=== PATIENT | male | born 1955 | race Caucasian/White ===

== ENCOUNTER → 2017-07-09 07:58 | Outpatient (CLI) | payer BC, SELFPAY ==
[2017-07-09 08:54] LABS: AST(SGOT) 23 U/L (15-37); Alanine Aminotransfer ALT/SGPT 46 U/L (16-61); Albumin, Serum 3.5 g/dL (3.2-5.0); Alkaline Phosphatase 91 U/L (45-117); Bilirubin, Direct 0.15 mg/dL (0.00-0.30); Cholesterol 146 mg/dL (200); Globulin 3.2 g/dL (2.2-4.2); High Density Lipoprotein 38 mg/dL; Protein, Total 6.7 g/dL (6.4-8.2); Triglycerides 137 mg/dL; Very Low Density Lipoprotein 27 mg/dL (5-40)
== END ==
PROVIDERS: Family Provider Family Medicine; PCP Family Medicine; Visit Provider Nurse Practitioner Family
DX: E78.5 Hyperlipidemia, unspecified (principal)
CPT/HCPCS: 36415; 80061; 80076

== ENCOUNTER → 2019-02-10 07:29 | Outpatient (CLI) | payer BC, SELFPAY ==
[2019-02-10 08:43] LABS: AST(SGOT) 19 U/L (15-37); Alanine Aminotransfer ALT/SGPT 36 U/L (16-61); Albumin, Serum 3.6 g/dL (3.2-5.0); Alkaline Phosphatase 81 U/L (45-117); Bilirubin, Direct 0.09 mg/dL (0.00-0.30); Cholesterol 126 mg/dL (200); Globulin 3.2 g/dL (2.2-4.2); High Density Lipoprotein 38 mg/dL; Protein, Total 6.8 g/dL (6.4-8.2); Triglycerides 103 mg/dL; Very Low Density Lipoprotein 21 mg/dL (5-40)
== END ==
PROVIDERS: Family Provider Family Medicine; PCP Family Medicine; Referring Provider Nurse Practitioner Family; Visit Provider Nurse Practitioner Family
DX: E78.5 Hyperlipidemia, unspecified (principal); Z79.899 Other long term (current) drug therapy
CPT/HCPCS: 36415; 80061; 80076

== ENCOUNTER → 2019-12-26 07:43 | Outpatient (CLI) | payer MEDICARE, OTHER, SELFPAY ==
[2019-02-14 08:32] VITALS: BMI 41.0
--- NOTE | 2019-12-26 07:44 | ECHOCS_ITS ---
Reason For Study: CMP Procedure This was a 2D Doppler, Color Flow transthoracic echocardiogram. Contrast injection was performed. Exam performed in department. Left Ventricle Mildly dilated left ventricle. Moderate global left ventricular systolic dysfunction. The estimated ejection fraction is 30 %. Septal motion consistent with IVCD. Unable to assess diastolic dysfunction. Right Ventricle Normal RV size. Normal systolic function. Atria The left atrium is mildly enlarged. Normal right atrium. No doppler evidence for ASD. Bubble contrast study negative for right to left interatrial shunt. Mitral Valve There is no mitral annular calcification. Normal mitral valve. Trivial mitral valve insufficiency. Tricuspid Valve Normal tricuspid valve. Trivial tricuspid valve insufficiency. Right ventricular systolic pressure estimated to be 31 mmHg. Aortic Valve Trisinus/trileaflet aortic valve. Normal aortic valve. Trivial aortic valve insufficiency. Pulmonic Valve The pulmonic valve is not well visualized. Trivial pulmonic valve insufficiency. Great Vessels Normal sized aortic root. Pericardium/Pleural No pericardial effusion. Medication 22 gauge I.V. with prn adaptor inserted into right arm. Diluted definity 2ml given slow IV push to enhance endocardial definition. Performed a rapid injection of agitated mix of 9 cc saline and 1cc air to assess for atrial septal defect. MMode/2D Measurements & Calculations LVIDd: 5.3 cm IVSd: 1.1 cm Ao root diam: 3.7 cm LVIDs: 4.5 cm LVPWd: 1.3 cm LA dimension: 4.0 cm RVDd: 3.7 cm FS: 14.4 % LAV(MOD-bp): 63.8 ml LA A4 area: 21.2 cm2 RA A4 area: 13.7 cm2 LAV(MOD-bp) Indexed: 30.6 ml/m2 LAV(MOD-sp2): 59.2 ml LAV(MOD-sp4): 62.1 ml Doppler Measurements & Calculations Lat Peak E' Satnam: 6.8 cm/sec Med Peak E' [place]: 6.8 cm/sec Ao V2 max: 139.7 cm/sec Ao max P.8 mmHg AI max satnam: 388.0 cm/sec LV V1 max: 88.9 cm/sec PA V2 max: 108.8 cm/sec AI max P.2 mmHg LV V1 max P.2 mmHg AI dec slope: 237.3 cm/sec2 AI P1/2t: 478.9 msec TR max satnam: 263.6 cm/sec TR max P.8 mmHg Interpretation Summary Contrast injection was performed. Mildly dilated left ventricle. Moderate global left ventricular systolic dysfunction. The estimated ejection fraction is 30 %. Septal motion consistent with IVCD. The left atrium is mildly enlarged. Trivial mitral valve insufficiency. Trivial tricuspid valve insufficiency. Trivial aortic valve insufficiency. Trivial pulmonic valve insufficiency. Right ventricular systolic pressure estimated to be 31 mmHg. Unable to assess diastolic dysfunction. Ordering Physician: Simba Harvey Referring Physician: MD Adin Lemus Performed By: Rajendra Valero RCS
[2019-12-26 10:09] LABS: AST(SGOT) 17 U/L (15-37); Alanine Aminotransfer ALT/SGPT 36 U/L (16-61); Albumin, Serum 3.6 g/dL (3.2-5.0); Alkaline Phosphatase 75 U/L (45-117); Bilirubin, Direct 0.17 mg/dL (0.00-0.30); Cholesterol 129 mg/dL (200); Globulin 3.3 g/dL (2.2-4.2); High Density Lipoprotein 36 mg/dL; Protein, Total 6.9 g/dL (6.4-8.2); Triglycerides 129 mg/dL; Very Low Density Lipoprotein 26 mg/dL (5-40)
== END ==
PROVIDERS: Nurse Practitioner Family; PCP Family Medicine; Referring Provider Internal Medicine Cardiovascular Disease; Visit Provider Internal Medicine Cardiovascular Disease
DX: I42.0 Dilated cardiomyopathy (principal); I25.10 Atherosclerotic heart disease of native coronary artery without angina pectoris; I10 Essential (primary) hypertension; E78.00 Pure hypercholesterolemia, unspecified
CPT/HCPCS: 36415; 80061; 80076; 93306; Q9957; A4216; C8929

== ENCOUNTER → 2020-01-24 06:01 | Outpatient (CLI) | payer MEDICARE, OTHER, SELFPAY ==
[2020-01-05 12:59] VITALS: BMI 41.3
--- NOTE | 2020-01-24 08:56 | STRESSREP_ITS ---
Stress Test Report Date: 01-24-2020 Procedure: Pharmacologic stress nuclear imaging study Indications: Shortness of breath/dyspnea on exertion; CAD; cardiomyopathy; abnormal ECG-left bundle branch block Consent: Per the patient Procedure: The patient underwent pharmacologic (Regadenoson) evaluation with a peak heart rate of 93 beats per minute (60%predicted maximal heart rate) and a peak blood pressure of 142/90 mmHg. The baseline ECG demonstrated sinus rhythm; left bundle branch block. The peak pharmacologic ECG demonstrated no obvious ECG changes. There were no cardiac dysrhythmias pretest, during pharmacologic infusion, or recovery. There was no complaint of chest discomfort during pharmacologic infusion or recovery. The examination was discontinued secondary to completion of protocol. Impression: 1. Pharmacologic (Regadenoson) evaluation 2. Peak pharmacologic ECG with continued left bundle branch block with no obvious ECG changes. 3. There were no cardiac dysrhythmias pretest, during pharmacologic infusion, or recovery. 4. Nuclear images pending Myocardial perfusion imaging study: Technique: The patient was injected with 14.9 millicuries of technetium 99m Cardiolite and subsequently rest SPECT Cardiolite nuclear imaging was obtained in the horizontal long, vertical long, and short axis views. The patient underwent pharmacologic (Regadenoson) evaluation with a peak heart rate of 93 beats per minute (60% percent predicted maximal heart rate) and a peak blood pressure of 142/90 mmHg. The patient was injected with 44.6 millicuries of technetium 99m Cardiolite and subsequently stress SPECT Cardiolite nuclear imaging was obtained in the horizontal long, vertical long, and short axis views. A gated Cardiolite study at peak stress was obtained. Interpretation: Rest and stress SPECT Cardiolite nuclear imaging status post realignment, normalization, and attenuation correction demonstrate the appearance of dimi nished myocardial perfusion/tracer uptake in portions of the distal anterior, anteroapical, distal anteroseptal, septal apical, distal lateral/lateral apical, distal inferior/inferior apical, which appears to be more prominent in portions of the distal anterior and distal anteroseptal segments status post stress. There is diminished end systolic thickening and brightening in the aforementioned areas. The gated Cardiolite study demonstrates diminished myocardial thickening and inward wall motion. The reported LVEF is 43%. Impression: 1. Rest and stress SPECT current nuclear imaging demonstrate myocardial perfusion changes concerning for an area of previous myocardial injury/infarction involving portions of the distal anterior, anteroapical, distal anteroseptal, septal apical, distal lateral apical/lateral apical, and distal inferior/inferoapical, with post-rest changes concerning for an area of associated tutu-infarct related myocardial ischemia in portions of the distal anterior and distal anterior septal segments. 2. The gated Cardiolite study reports an LVEF of 43%. This note was generated with Piik[employer] software. It may contain incorrect words, spelling, and punctuation that were not noted in checking the note before signing.
== END ==
PROVIDERS: PCP Family Medicine; Referring Provider Internal Medicine Cardiovascular Disease; Visit Provider Internal Medicine Cardiovascular Disease
DX: R06.00 Dyspnea, unspecified (principal); I25.10 Atherosclerotic heart disease of native coronary artery without angina pectoris; I42.0 Dilated cardiomyopathy; I44.7 Left bundle-branch block, unspecified; I10 Essential (primary) hypertension; E78.00 Pure hypercholesterolemia, unspecified
CPT/HCPCS: 78452; 93017; A9500; A4216; J2785

== ENCOUNTER 2020-02-15 06:47 | Day surgery (SDC) | payer MEDICARE, OTHER, SELFPAY ==
[2020-01-05 12:59] VITALS: BMI 41.3
[2020-02-07 09:00] VITALS: BMI 41.0
--- NOTE | 2020-02-07 09:40 | RAD_ITS ---
STUDY: X-RAY CHEST REASON FOR EXAM: Male, 64 years old. SOB HX OF CHEST PAINS WHEN EXERTING HIMSELF RECENTLY. TECHNIQUE: The lateral views COMPARISON: 11/21/2016 FINDINGS: The lungs are clear and expanded. There is no demonstrated pleural abnormality. Normal size heart. Normal mediastinum and serena. Normal visualized pulmonary arteries. Normal visualized aortic arch and descending thoracic aorta. Normal visualized thoracic spine. Normal visualized ribs, clavicles, and shoulders. There is no demonstrated abnormality of the visualized soft tissue structures of the upper abdomen. RAD/Chest PA and Lateral IMPRESSION: Normal x-ray examination of the chest. Electronically Signed: Rafal Martinez DO at 11:31 EDT Tel [phone], Service support ,
[2020-02-07 10:01] LABS: Hematocrit 43.2 % (40-54); Hemoglobin 14.6 g/dL (13.0-16.5); Mean Corp Hgb Conc 33.8 g/dL (32-36); Mean Corpuscular Hgb 30.4 pg (27.0-32.0); Mean Platelet Vol. 8.8 fl (6.2-12.0); Platelet Count 198 K/mm3 (150-450); RBC Distribution Width CV 12.9 % (11.6-14.6); RBC Distribution Width SD 42.5 fl (35.1-43.9); White Blood Count 6.5 K/mm3 (4.4-11.0)
[2020-02-07 10:16] LABS: Prothrombin Time (Protime)PT. 12.5 SECONDS (11.7-14.9)
[2020-02-07 10:17] LABS: Partial Thromboplast Time 25.1 Seconds (24.1-36.2)
[2020-02-07 10:33] LABS: Anion Gap 3 (5-15); BUN 13 mg/dL (7-18); BUN/Creat Ratio 13.2 RATIO (10-20); Calcium,Total 8.8 mg/dL (8.5-10.1); Chloride 111 mmol/L (98-107); Creatinine, Serum 0.98 mg/dL (0.70-1.30); EST Glomerular Filtration Rate 81 mL/min (>60); Est Glom Filt Rate - Afr Amer 98 mL/min (>60); Glucose 103 mg/dL (74-106); Potassium 4.2 mmol/L (3.5-5.1); Sodium Level 140 mmol/L (136-145)
[2020-02-14 07:52] VITALS: BMI 41.3
--- NOTE | 2020-02-14 09:37 | PCM.HP.BLA ---
<Tabatha Almanza - Last Filed: 02/14/20 09:37> History and Physical Date of Admission: 02/15/20 JOSH WILKERSON, is a 64-year-old white male who presents here today for a diagnostic heart cath. He has a hx of tcoronary artery disease, cardiomyopathy, hyperlipidemia and left bundle branch block. At his last OV there was concern over SOB. His significant other is with him and she states she notices that he is more short of breath and dyspneic sometimes during conversation as well as activity. He feels that his breathing is reasonable during his activity. He has not had ongoing orthopnea or PND or peripheral pitting edema. There is been no ongoing symptoms of classic angina pectoris in the form of chest discomfort. He has not had near syncope or syncope. He did undergo evaluation recently with a transthoracic echocardiogram. The results are noted below. He also had his lipid labs performed recently. His total cholesterol was 129 with an LDL of 67 and an HDL of 36. His triglycerides were 129. He underwent a stress test which was abnormal. Stress test demonstrated concerns of evidence of stress-induced cardiomyopathy as well as diminished LV systolic function-which may be compatible with the patient's history of an underlying cardiomyopathy. Because of this he is undergoing a diagnostic heart cath. Allergies No Known Allergies Allergy (Verified 01/05/20 13:02) Medications Aspirin [Aspirin, Baby] 81 mg PO DAILY@0800 #30 tab.chew 11/22/16 [Rx Confirmed 01/05/20] rosuvastatin 10 mg tablet 10 mg PO DAILY 02/14/19 [History Confirmed 01/05/20] amlodipine 2.5 mg tablet 2.5 mg PO DAILY #90 tab 06/20/19 [Rx Confirmed 01/05/20] carvedilol 6.25 mg tablet 6.25 mg PO BID #60 tab 01/05/20 [Rx Confirmed 01/05/20] [facility] Medical History Pure hypercholesterolemia (Chronic) Dilated cardiomyopathy (Chronic) Essential hypertension (Chronic) Left bundle branch block (Chronic) Atherosclerotic heart disease of [place] coronary artery without angina pectoris (Chronic) Surgical History History of right arm surgery (Resolved) History of tonsillectomy (Resolved) Family History Mother Heart disease Pacemaker Cardiac defibrillator in place Social History (Updated 01/05/20 @ 13:[address] Simba Harvey MD) Smoking Status: Never smoker alcohol intake: current alcohol intake frequency: holidays/special occasions only caffeine: Yes Type: coffee Number of servings: 3 ROS Const Const: Negative for fatigue, weakness, frequent falls, excessive sweating, weight gain or weight loss Eyes Eyes: Negative for transient loss of vision, blurry vision or change in vision ENT ENT: Negative for dizziness or balance problems Cardio Chest Pain: No Palpitations: No Edema: None Muscle aches with walking: None Resp Respiratory: Positive for SOB with activity (increased) and SOB at rest GI GI: Negative vomiting or vomiting blood/hematemesis : Negative for hematuria Musc Musc: Negative for muscle aches/ myalgia, muscle weakness, joint pain or balance problems Skin Skin: Negative non-healing lesions or rash Neuro Neuro: Negative for dizziness, lightheadedness, orthostatic symptoms, frequent falls, weakness or blurry vision Main Hematologic/Lymphatic: Negative for easy bleeding Endo Endo: Negative for fatigue or excessive sweating Psych Psych: Negative for anxiety or depression Allergy Allergy/Immunology: Negative for hives, Negative for rash Cardiology Exam Const Appearance: cooperative, healthy appearing, comfortable, no acute distress, well developed and well groomed Nutritional Appearance: overweight Orientation: alert, awake and oriented x3 Head Head: normal to inspection, normocephalic and atraumatic Ears: hearing grossly normal bilaterally Nose: external nose normal Face and Sinus: face symmetric Mouth: moist mucous membranes Teeth and gingiva: fair dentition Eyes Eyelids: eyelids normal Conjunctivae: conjunctivae normal Pupils: PERRL EOM: EOM intact bilaterally Neck Neck: normal visual inspection, full ROM, no lymphadenopathy and no JVD Carotids: normal carotid upstroke; negative bruit Neck Mass: Negative Neck mass Chest Chest inspection: normal inspection of the chest and symmetric chest movement; negative normal respiratory effort Auscultation: Bilateral: Clear to Auscultation Cardio Palpation: normal PMI Rate: regular rate Rhythm: regular rhythm Heart sounds: S1 normal and S2 normal; negative rub, gallop or murmur GI GI: normal to inspection, soft and bowel sounds present; negative tender Neuro General: alert, awake, oriented x3 and moves all extremities Skin Skin: no rashes or lesions noted Extremities Pulses: Normal: Right Posterior Tibial Pulse, Left Posterior Tibial Pulse, Right Radial Pulse, Left Radial Pulse Lower Extremity Edema: None: Bilateral Psych Psychological: normal affect Assessment & Plan 1. Atherosclerosis of [place] coronary artery of [place] heart without angina pectoris I25.10 Plan He does have a history of CAD documented by diagnostic cardiac catheterization in 2017. At that time from a coronary artery disease standpoint it was reported as mild to moderate with no angiographically significant CAD. He was treated medically with risk factor evaluation and care. Based upon questions of shortness of breath and dyspnea as well as his echocardiogram suggesting his LV systolic function being diminished, he underwent a stress test which was abnormal. He will undergo a diagnostic heart cath today. F/u will be based on findings. 2. Dilated cardiomyopathy I42.0 Plan He has initiated medical therapy with carvedilol. He will increase the dose to 6.25 mg twice daily. He will continue to increase the dose as tolerated as well as consider addition of other agents such as JAYME inhibitors, ARB's, or Entresto. 3. Left bundle branch block I44.7 Plan He does have a history of a left bundle branch block. This may go along with a non-CAD related cardiomyopathy. He will continue evaluation care as noted above. 4. Pure hypercholesterolemia E78.00 Plan His lipid labs were reviewed. He will continue medical therapy and follow-up. 5. Essential hypertension I10 Plan His blood pressure appears to be reasonably well controlled at the moment. He will continue medical management follow-up 6. Dyspnea on exertion R06.00 Plan The concern is whether his dyspnea on exertion is related to his cardiovascular disease process versus a noncardiac process. Procedure Criteria Procedure Type: Elective COVID Risk Discussion: The surgeon/proceduralist and patient have discussed in detail the risk of exposure to and/or potential harm posed by the COVID-19 virus with having a surgery/procedure at this time versus the risk of delaying the surgery/procedure. It is not possible to know either the risk of delaying the surgery or procedure or chance of getting an infection with perfect accuracy, but a joint decision was made between the patient and the surgeon/proceduralist to proceed at this time with the scheduled surgery/procedure as indicated on the consent form. <Simba Harvey - Last Filed: 02/15/20 07:38> History and Physical Addendum: Echocardiogram: 12-26-2019 Interpretation Summary Contrast injection was performed. Mildly dilated left ventricle. Moderate global left ventricular systolic dysfunction. The estimated ejection fraction is 30 %. Septal motion consistent with IVCD. The left atrium is mildly enlarged. Trivial mitral valve insufficiency. Trivial tricuspid valve insufficiency. Trivial aortic valve insufficiency. Trivial pulmonic valve insufficiency. Right ventricular systolic pressure estimated to be 31 mmHg. Unable to assess diastolic dysfunction. Stress Test Report Date: 01-24-2020 Procedure: Pharmacologic stress nuclear imaging study Indications: Shortness of breath/dyspnea on exertion; CAD; cardiomyopathy; abnormal ECG-left bundle branch block Consent: Per the patient Procedure: The patient underwent pharmacologic (Regadenoson) evaluation with a peak heart rate of 93 beats per minute (60%predicted maximal heart rate) and a peak blood pressure of 142/90 mmHg. The baseline ECG demonstrated sinus rhythm; left bundle branch block. The peak pharmacologic ECG demonstrated no obvious ECG changes. There were no cardiac dysrhythmias pretest, during pharmacologic infusion, or recovery. There was no complaint of chest discomfort during pharmacologic infusion or recovery. The examination was discontinued secondary to completion of protocol. Impression: 1. Pharmacologic (Regadenoson) evaluation 2. Peak pharmacologic ECG with continued left bundle branch block with no obvious ECG changes. 3. There were no cardiac dysrhythmias pretest, during pharmacologic infusion, or recovery. 4. Nuclear images pending Myocardial perfusion imaging study: Technique: The patient was injected with 14.9 millicuries of technetium 99m Cardiolite and subsequently rest SPECT Cardiolite nuclear imaging was obtained in the horizontal long, vertical long, and short axis views. The patient underwent pharmacologic (Regadenoson) evaluation with a peak heart rate of 93 beats per minute (60% percent predicted maximal heart rate) and a peak blood pressure of 142/90 mmHg. The patient was injected with 44.6 millicuries of technetium 99m Cardiolite and subsequently stress SPECT Cardiolite nuclear imaging was obtained in the horizontal long, vertical long, and short axis views. A gated Cardiolite study at peak stress was obtained. Interpretation: Rest and stress SPECT Cardiolite nuclear imaging status post realignment, normalization, and attenuation correction demonstrate the appearance of diminished myocardial perfusion/tracer uptake in portions of the distal anterior, anteroapical, distal anteroseptal, septal apical, distal lateral/lateral apical, distal inferior/inferior apical, which appears to be more prominent in portions of the distal anterior and distal anteroseptal segments status post stress. There is diminished end systolic thickening and brightening in the aforementioned areas. The gated Cardiolite study demonstrates diminished myocardial thickening and inward wall motion. The reported LVEF is 43%. Impression: 1. Rest and stress SPECT current nuclear imaging demonstrate myocardial perfusion changes concerning for an area of previous myocardial injury/infarction involving portions of the distal anterior, anteroapical, distal anteroseptal, septal apical, distal lateral apical/lateral apical, and distal inferior/inferoapical, with post-rest changes concerning for an area of associated tutu-infarct related myocardial ischemia in portions of the distal anterior and distal anterior septal segments. 2. The gated Cardiolite study reports an LVEF of 43%. I have re-examined the patient. There are no clinical changes since date of exam.
--- NOTE | 2020-02-15 09:22 | CL.D_ITS ---
Patient Name: JOSH WILKERSON Study Date: 02/15/2020 Performing: Simba Harvey MD Ht: 66.14 inches 168 cm : 1955 Wt: 255.74 lbs 116 kg Age: 64 Gender: male BSA: 2.22 PROCEDURE(S) PERFORMED [id number]/LV CLINICAL PROFILE AND INDICATIONS Indications: Suspected CAD Heart Failure: None Stress/Imaging Date: 01/24/2020 Angina Classification Anginal Classification w/in 2 Weeks: Anginal Equivalent Dyspnea CONCLUSIONS Elevated Left Ventricular End Diastolic Pressure Global LV systolic dysfunction- Moderate LVEF: by LV gram 30 % [place] Multivessel CAD RECOMMENDATIONS Medical therapy Refer for EP evaluation for BiV ICD PRECIPITATOR DESCRIPTION OF PROCEDURE The patient arrived to the procedure lab. The risks and benefits of the procedure as well as a full d escription of our services here and current unavailability of surgical backup were fully explained to the patient and/or their significant other prior to the catheterization. The Timeout was completed, verifying the correct patient and procedure. The patient's procedural site was prepped and draped in the usual fashion. Local anesthetic was given subcutaneously to right radial region with Lidocaine 2% . Using a modified Seldinger technique, arterial access was obtained via the right radial artery, a 6 Fr sheath was inserted. Left Coronary Artery selective angiography was performed in multiple views u sing a 5 Fr. 4.0 [place] catheter. Right Coronary Artery selective angiography was then performed in mu ltiple views using a 5 Fr. 4.0 [place] catheter. Left Ventriculography was performed in COLE projection using a 5 Fr. Pig[place] catheter. LV to AO pullback pressures were then recorded.The arterial sheath was pulled and a TR Band was applied for hemostasis 10cc air inserted CORONARY ANGIOGRAPHY DOMINANCE: Left Dominant LEFT HEART ASSESSMENT Left Ventricular Ejection Fraction: by LV Gram 30 % Global Hypokinesis - Moderate Elevated Left Ventricular End Diastolic Pressure LVEDP: 30 mmHg LEFT MAIN: Angiographically normal LEFT ANTERIOR DESCENDING ARTERY: PROX LAD: eccentric: 10 - 25 % Stenosis, Mild luminal irregularities DIAGONAL 1: Proximal - Mild luminal irregularities DIAGONAL 2: Proximal - Mild luminal irregularities CIRCUMFLEX ARTERY: Mild luminal irregularities RIGHT CORONARY ARTERY: Mild luminal irregularities diffuse: eccentric: 10 - 25 % Stenosis MID RCA: aneurysmal segment AORTIC ROOT: Angiographically normal COMPLICATIONS No Complications PROCEDURE MEDICATIONS Fentanyl 50 mcg IV Versed 1 mg IV Oxygen: 2 L/min via nasal cannula SUMMARY OF HEMODYNAMIC DATA Time AIR REST ECG 07:10:04 AO 121/72 (90) SA 08:20:24 LV 122/15, 30 08:36:45 LV 122/14, 30 08:36:51 LV 124/14, 30 08:37:49 LVp 127/11, 22 08:37:55 AOp 127/75 (98) 08:38:00 Signed By Simba Harvey MD On 02/15/2020 09:21:39 Simba Harvey MD
== END 2020-02-15 10:32 | disposition home or self-care (01) ==
LOC: CLSP 06:48
PROVIDERS: PCP Family Medicine; Referring Provider Internal Medicine Cardiovascular Disease; Visit Provider Internal Medicine Cardiovascular Disease
DX: I25.10 Atherosclerotic heart disease of native coronary artery without angina pectoris (principal); I44.7 Left bundle-branch block, unspecified; I42.0 Dilated cardiomyopathy; I10 Essential (primary) hypertension; E78.5 Hyperlipidemia, unspecified; R06.02 Shortness of breath; Z79.82 Long term (current) use of aspirin; Z79.899 Other long term (current) drug therapy
CPT/HCPCS: 36415; 71046; 80048; 85027; 85610; 85730; 93458; 99152; 99153; J7040; Q9967; C1769; C1894

== ENCOUNTER → 2020-04-10 09:46 | Outpatient (CLI) | payer MEDICARE, OTHER, SELFPAY ==
[2020-04-10 09:08] VITALS: BMI 41.3
[2020-04-10 10:49] LABS: Anion Gap 5 (5-15); BUN 15 mg/dL (7-18); BUN/Creat Ratio 15.1 RATIO (10-20); Chloride 107 mmol/L (98-107); EST Glomerular Filtration Rate 80 mL/min (>60); Est Glom Filt Rate - Afr Amer 97 mL/min (>60); Glucose 93 mg/dL (74-106); Potassium 4.4 mmol/L (3.5-5.1); Sodium Level 136 mmol/L (136-145)
== END ==
PROVIDERS: PCP Family Medicine; Visit Provider Nurse Practitioner Family
DX: I10 Essential (primary) hypertension (principal); E78.00 Pure hypercholesterolemia, unspecified; I42.0 Dilated cardiomyopathy; I44.7 Left bundle-branch block, unspecified; I25.10 Atherosclerotic heart disease of native coronary artery without angina pectoris
CPT/HCPCS: 36415; 80048

== ENCOUNTER → 2020-05-18 22:25 | Outpatient (CLI) | payer MEDICARE, OTHER, SELFPAY ==
[2020-04-10 09:08] VITALS: BMI 41.3
== END ==
PROVIDERS: PCP Family Medicine; Referring Provider Nurse Practitioner Family; Visit Provider Nurse Practitioner Family
DX: G47.10 Hypersomnia, unspecified (principal); I25.10 Atherosclerotic heart disease of native coronary artery without angina pectoris; I44.7 Left bundle-branch block, unspecified
CPT/HCPCS: 95810

== ENCOUNTER → 2020-06-15 08:15 | Outpatient (CLI) | payer MEDICARE, OTHER, SELFPAY ==
[2020-06-04 13:24] VITALS: BMI 41.9
[2020-06-15 09:30] LABS: AST(SGOT) 20 U/L (15-37); Alanine Aminotransfer ALT/SGPT 31 U/L (16-61); Albumin, Serum 3.7 g/dL (3.2-5.0); Alkaline Phosphatase 75 U/L (45-117); Bilirubin, Direct 0.07 mg/dL (0.00-0.30); Cholesterol 156 mg/dL (200); Globulin 3.4 g/dL (2.2-4.2); High Density Lipoprotein 40 mg/dL; Protein, Total 7.1 g/dL (6.4-8.2); Triglycerides 134 mg/dL; Very Low Density Lipoprotein 27 mg/dL (5-40)
== END ==
PROVIDERS: PCP Family Medicine; Referring Provider Nurse Practitioner Family; Visit Provider Nurse Practitioner Family
DX: E78.00 Pure hypercholesterolemia, unspecified (principal)
CPT/HCPCS: 36415; 80061; 80076

== ENCOUNTER → 2020-06-15 20:15 | Outpatient (CLI) | payer MEDICARE, OTHER, SELFPAY ==
[2020-06-04 13:24] VITALS: BMI 41.9
[2020-06-15 08:34] VITALS: BMI 41.5
== END ==
PROVIDERS: PCP Family Medicine; Referring Provider Nurse Practitioner Acute Care; Visit Provider Nurse Practitioner Acute Care
DX: G47.33 Obstructive sleep apnea (adult) (pediatric) (principal); E78.00 Pure hypercholesterolemia, unspecified; I10 Essential (primary) hypertension; I42.0 Dilated cardiomyopathy; I44.7 Left bundle-branch block, unspecified; I25.10 Atherosclerotic heart disease of native coronary artery without angina pectoris
CPT/HCPCS: 36415; 80061; 80076; 95811

== ENCOUNTER → 2020-07-05 09:00 | Outpatient (CLI) | payer MEDICARE, OTHER, SELFPAY ==
[2020-06-15 08:34] VITALS: BMI 41.5
== END ==
PROVIDERS: PCP Family Medicine; Visit Provider Nurse Practitioner Acute Care
DX: Z46.89 Encounter for fitting and adjustment of other specified devices (principal)

== ENCOUNTER 2020-08-11 23:27 | Emergency (ER) | payer MEDICARE, OTHER, SELFPAY ==
[2020-06-15 08:34] VITALS: BMI 41.5
[2020-08-11 23:28] VITALS: BP 158/90; PULSE 107; RESP 16; TEMP 36.7; O2SAT 97; BMI 40.3
--- NOTE | 2020-08-11 23:30 | EKG12_ITS ---
Test Reason : CP Blood Pressure : / mmHG Vent. Rate : 104 BPM Atrial Rate : 104 BPM P-R Int : 144 ms QRS Dur : 164 ms QT Int : 400 ms P-R-T Axes : 000 -42 099 degrees QTc Int : 526 ms Sinus tachycardia Left axis deviation Left bundle branch block Abnormal ECG Confirmed by DANIELLE OCHOA, RONI ([id number]), newspaper managing editor HEIDE TEJEDA ([id number]) on 08/15/2020 10:56:15 AM Referred By: SAMANTHA Confirmed By:RONI SANTOS MD
--- NOTE | 2020-08-11 23:42 | ED.VISSUMM ---
- ER Visit Summary Date of Service: 08/11/20 Chief Complaint: Nausea, vomiting and diarrhea with left lateral rib cage pain only when lying on his right side History of Present Illness: The patient is a 64 M hypertension, high cholesterol cardiomyopathy and left bundle branch block. Patient had a prior cardiac catheterization, no prior cardiac stents or bypass. States in the last 24 hours has had nausea, vomiting diarrhea. Mild chills. He is also had left lateral rib cage pain only when lying on his right side. Is not exertional. Currently he is not having any chest pain nor is he short of breath. He denies any fever. Physical Examination: Older male no acute distress vital signs stable initial blood pressure 150/103. Afebrile. Pulse ox 97% on room air no signs hypoxia. He does not look septic or toxic. He does not look dehydrated. He is in no distress. HEENT exam unremarkable. Neck nontender no lymphadenopathy. Lungs clear to auscultation bilaterally. Heart regular rhythm rate about 100 no murmur. Abdomen is soft and nontender normal bowel sounds no peritoneal signs. Chest wall is nontender. Specifically his left rib cage is nontender. There is no ecchymosis or bruising. No subcu air or crepitance. Patient is moving all 4 extremities. Equal symmetrical radial pulses. Calves are nontender without edema or cords. Back nontender. Neurologically is awake alert with no focal motor deficits. Skin unremarkable. Test Results: EKG shows sinus tachycardia rate of 104 with a left bundle branch block which he has had documented before in the past. No acute signs of [place] or ischemia. Portable 1 view chest x-ray interpreted by myself shows no acute abnormality. Normal cardiac silhouette mediastinum. No infiltrate. No obvious acute bony abnormalities. No pneumothorax nor any infiltrate. Chronic changes. CBC normal white count of 10 hemoglobin 15. Chemistries unremarkable normal creatinine and gap. Troponin normal. D-dimer normal. Multiple repeat exams patient is doing well. He was having some nausea which would go along with his viral type of symptoms and was treated with IV Zofran. Emergency Department Course and Treatment: Patient with nausea vomiting and diarrhea which may be a viral syndrome. He also has atypical left-sided rib cage pain only when laying on the right. Its not reproducible. This does not sound cardiac. He has been hospitalized about 5 to 6 weeks ago. Clinically does not appear to be a DVT or PE but I will do a D-dimer due to the recent hospitalization and very atypical chest pain that he is currently not having nor is it reproducible. Treatment Plan: Plenty of fluids and rest. Zofran as needed for nausea. Follow-up if not improving or return if feeling worse. Disposition: Discharge Impression: Acute nausea, vomiting and diarrhea secondary to viral syndrome. Atypical left rib cage chest pain History of left bundle branch block This note was generated with [employer] dictation software. It may contain incorrect words, spelling, and punctuation that were not noted in review of the chart prior to signing ED Disposition - Plan for ED Patient: Referrals: Adin Lemus MD [Primary Care Provider] -
[2020-08-11] MEDS: Aspirin 81 MG TAB.CHEW 324 MG PO (23:47)
[2020-08-11 23:57] LABS: Absolute Lymphocyte Count 0.68 X10^3/uL (0.83-4.51); Absolute Neutrophil Count 9.4 X10^3/uL (2.0-7.7); Basophil# 0.04 X10^3/uL; Basophil% 0.4 % (0-1); Eosinophil# 0.08 X10^3/uL; Eosinophils% 0.7 % (0-5); Hematocrit 45.1 % (40-54); Hemoglobin 15.1 g/dL (13.0-16.5); Lymphocyte # 0.68 X10^3/ul (4.0); Lymphocyte % 6.3 % (19-41); Mean Corp Hgb Conc 33.5 g/dL (32-36); Mean Corpuscular Hgb 30.7 pg (27.0-32.0); Mean Corpuscular Volume 91.7 fL (80-94); Mean Platelet Vol. 8.9 fl (6.2-12.0); Monocyte# 0.53 X10^3/uL; Monocyte% 4.9 % (0-10); NRBC Flagged by Analyzer 0 % (0-5); Neutrophil # 9.42 X10^3/uL (2.7-7.7); Neutrophil % 87.3 % (47-70); Platelet Count 209 K/mm3 (150-450); RBC Distribution Width SD 44.1 fl (35.1-43.9); Red Blood Count 4.92 M/mm3 (4.6-6.2); White Blood Count 10.8 K/mm3 (4.4-11.0)
--- NOTE | 2020-08-12 | RAD_ITS ---
STUDY: X-RAY CHEST REASON FOR EXAM: Male, 64 years old. chest pain TECHNIQUE: Single AP portable view of the chest. COMPARISON: 02/07/2020. FINDINGS: There are no confluent pulmonary infiltrates. There is no demonstrated pleural abnormality. Normal size heart. Normal mediastinum and serena. Normal visualized aortic arch and descending thoracic aorta. There are no demonstrated acute fractures or destructive bone lesions. There is no demonstrated abnormality of the visualized soft tissue structures of the upper abdomen. RAD/Chest 1 View (Portable) IMPRESSION: Normal x-ray examination of the chest. Electronically Signed: Michael Carpio MD at 0:32 EDT , Service support ,
[2020-08-12 00:11] LABS: Anion Gap 7 (5-15); BUN 17 mg/dL (7-18); BUN/Creat Ratio 15.7 RATIO (10-20); Chloride 110 mmol/L (98-107); Creatinine, Serum 1.08 mg/dL (0.70-1.30); EST Glomerular Filtration Rate 73 mL/min (>60); Est Glom Filt Rate - Afr Amer 88 mL/min (>60); Estimated Creatinine Clearance 61.54 ml/min; Glucose 134 mg/dL (74-106); Potassium 4.2 mmol/L (3.5-5.1); Sodium Level 141 mmol/L (136-145)
[2020-08-12] MEDS: Ondansetron 4 MG/2 ML Vial IV (00:22)
[2020-08-12 00:28] LABS: D-Dimer Quantitative (DVT/PE) 0.36 FEU/ug/m (0.27-0.49)
--- NOTE | 2020-08-12 00:34 | ED.DEP ---
ED Disposition - Plan for ED Patient: Disposition: Home or Assisted Living Instructions: ED Chest Pain, Uncertain Cause, ED Viral Syndrome (Adult) Prescriptions: Ondansetron [Zofran Odt] 4 mg PO Q8H PRN PRN #7 tablet PRN Reason: Nausea Prescription Printed Referrals: Adin Lemus MD [Primary Care Provider] - 3-5 Days if not improving Additional Instructions: Plenty of fluids and rest. Tylenol for any pain. Zofran as needed for nausea. Your labs, EKG and chest x-ray were all unremarkable tonight. This may all be from a viral syndrome.
[2020-08-12 00:48] VITALS: PULSE 94; RESP 18; O2SAT 95
[2020-08-12 00:58] VITALS: BP 154/95; BP 158/90; PULSE 83; PULSE 94; RESP 16; RESP 18; TEMP 36.7; O2SAT 95
== END 2020-08-12 01:02 | disposition home or self-care (01) ==
PROVIDERS: Emergency Provider Emergency Medicine; PCP Family Medicine
DX: B34.9 Viral infection, unspecified (principal); R11.2 Nausea with vomiting, unspecified; R19.7 Diarrhea, unspecified; R07.81 Pleurodynia; I25.10 Atherosclerotic heart disease of native coronary artery without angina pectoris; I10 Essential (primary) hypertension; I42.9 Cardiomyopathy, unspecified; E78.00 Pure hypercholesterolemia, unspecified; Z79.82 Long term (current) use of aspirin; Z79.899 Other long term (current) drug therapy
CPT/HCPCS: 71045; 80048; 84484; 85025; 85379; 93005; 96374; 99282; A4216; J2405

== ENCOUNTER → 2020-09-14 15:20 | Outpatient (CLI) | payer MEDICARE, OTHER, SELFPAY | PROVIDERS: PCP Family Medicine | DX: Z01.818 Encounter for other preprocedural examination (principal); Z20.822 Contact with and (suspected) exposure to COVID-19 | CPT/HCPCS: 87635; C9803; U0002 ==

== ENCOUNTER → 2021-09-16 | Outpatient (CLI) | payer MEDICARE, OTHER, SELFPAY ==
--- NOTE | 2021-09-16 08:47 | ECHOD_ITS ---
Reason For Study: CARDIOMYOPATHY Procedure This was a 2D Doppler, Color Flow transthoracic echocardiogram. The study was technically difficult. Exam performed in department. Left Ventricle Normal LV size. Left ventricular systolic function is lower limits of normal. The estimated ejection fraction is 50 %. Septal motion consistent with IVCD. No evidence for diastolic dysfunction. No regional wall motion abnormalities noted. Right Ventricle Normal RV size. ICD or pacer leads identified within the right ventricle. Normal systolic function. Atria Normal left atrium. Normal right atrium. ICD or pacer leads identified within the right atrium. No doppler evidence for ASD. Mitral Valve There is no mitral annular calcification. Normal mitral valve. Trivial mitral valve insufficiency. Tricuspid Valve Normal tricuspid valve. Trivial tricuspid valve insufficiency. Right ventricular systolic pressure estimated to be 34 mmHg. Aortic Valve Trisinus/trileaflet aortic valve. Normal aortic valve. Trivial aortic valve insufficiency. Pulmonic Valve The pulmonic valve is not well visualized. Mild (1+) pulmonic valve insufficiency. Great Vessels Normal sized aortic root. Pericardium/Pleural No pericardial effusion. MMode/2D Measurements & Calculations LVIDd: 5.2 cm IVSd: 1.1 cm Ao root diam: 3.5 cm LVIDs: 3.5 cm LVPWd: 1.3 cm RVDd: 3.4 cm FS: 33.0 % LAV(MOD-sp4): 35.9 ml LVAd ap4: 39.1 cm2 LVAd ap2: 29.8 cm2 LVLd ap4: 8.1 cm LVLd ap2: 7.4 cm EDV(MOD-sp4): 153.8 ml EDV(MOD-sp2): 98.2 ml EDV(sp4-el): 160.1 ml EDV(sp2-el): 101.5 ml LVAs ap4: 26.3 cm2 LVAs ap2: 18.0 cm2 LVLs ap4: 7.4 cm LVLs ap2: 6.4 cm ESV(MOD-sp4): 73.8 ml ESV(MOD-sp2): 41.3 ml ESV(sp4-el): 79.0 ml ESV(sp2-el): 43.2 ml EF(MOD-sp4): 52.0 % EF(MOD-sp2): 58.0 % EF(sp4-el): 50.7 % SV(MOD-sp4): 80.0 ml SV(MOD-sp2): 56.9 ml SV(sp4-el): 81.1 ml LA dimension(2D): 3.9 cm LA A4 area: 15.4 cm2 Doppler Measurements & Calculations MV E max satnam: 75.2 cm/sec Lat Peak E' Satnam: 6.3 cm/sec Med Peak E' Satnam: 7.7 cm/sec MV A max satnam: 71.5 cm/sec E/E' lat: 12.0 E/E' med: 9.8 MV E/A: 1.1 Ao V2 max: 149.3 cm/sec AI max satnam: 442.6 cm/sec PA V2 max: 100.0 cm/sec Ao max P.9 mmHg AI max P.4 mmHg AI dec slope: 203.3 cm/sec2 AI P1/2t: 637.7 msec TR max satnam: 277.6 cm/sec TR max P.8 mmHg ECHO/Echo Complete Interpretation Summary The study was technically difficult. Left ventricular systolic function is lower limits of normal. The estimated ejection fraction is 50 %. Septal motion consistent with IVCD. Trivial mitral valve insufficiency. Trivial tricuspid valve insufficiency. Trivial aortic valve insufficiency. Mild (1+) pulmonic valve insufficiency. Right ventricular systolic pressure estimated to be 34 mmHg. No evidence for diastolic dysfunction. ICD or pacer leads identified within the right atrium ICD or pacer leads identified within the right ventricle. Ordering Physician: Simba Harvey Referring Physician: MD Adin Lemus Performed By: Eleni Paige RCS
[2021-09-16 11:26] LABS: AST(SGOT) 18 U/L (15-37); Alanine Aminotransfer ALT/SGPT 32 U/L (16-61); Albumin, Serum 3.5 g/dL (3.2-5.0); Alkaline Phosphatase 57 U/L (45-117); Cholesterol 130 mg/dL (200); Globulin 3.1 g/dL (2.2-4.2); High Density Lipoprotein 38 mg/dL; Protein, Total 6.6 g/dL (6.4-8.2); Triglycerides 127 mg/dL; Very Low Density Lipoprotein 25 mg/dL (5-40)
== END | disposition home or self-care (01) ==
PROVIDERS: Nurse Practitioner Family; PCP Family Medicine; Visit Provider Internal Medicine Cardiovascular Disease
DX: I25.10 Atherosclerotic heart disease of native coronary artery without angina pectoris (principal); I42.0 Dilated cardiomyopathy; Z95.0 Presence of cardiac pacemaker; E78.00 Pure hypercholesterolemia, unspecified
CPT/HCPCS: 36415; 80061; 80076; 93306

== ENCOUNTER → 2022-07-03 | Outpatient (CLI) | payer MEDICARE, SELFPAY ==
[2022-07-03 08:57] LABS: AST(SGOT) 27 U/L (15-37); Alanine Aminotransfer ALT/SGPT 31 U/L (16-61); Albumin, Serum 3.6 g/dL (3.2-5.0); Alkaline Phosphatase 58 U/L (45-117); Bilirubin, Direct 0.07 mg/dL (0.00-0.30); Cholesterol 149 mg/dL (200); Globulin 3.1 g/dL (2.2-4.2); High Density Lipoprotein 34 mg/dL; Protein, Total 6.7 g/dL (6.4-8.2); Triglycerides 199 mg/dL; Very Low Density Lipoprotein 40 mg/dL (5-40)
== END | disposition home or self-care (01) ==
PROVIDERS: PCP Family Medicine; Referring Provider Internal Medicine Cardiovascular Disease; Visit Provider Internal Medicine Cardiovascular Disease
DX: I10 Essential (primary) hypertension (principal); E78.00 Pure hypercholesterolemia, unspecified
CPT/HCPCS: 36415; 80061; 80076

== ENCOUNTER → 2022-07-07 | Outpatient (CLI) | payer MEDICARE, SELFPAY ==
[2022-07-07 10:11] LABS: Absolute Lymphocyte Count 1.26 X10^3/uL (0.83-4.51); Absolute Neutrophil Count 3.2 X10^3/uL (2.0-7.7); Basophil# 0.05 X10^3/uL; Eosinophil# 0.09 X10^3/uL; Eosinophils% 1.8 % (0-5); Hematocrit 42.6 % (40-54); Hemoglobin 14.1 g/dL (13.0-16.5); Lymphocyte # 1.26 X10^3/ul (0.83-4.51); Lymphocyte % 25.6 % (19-41); Mean Corp Hgb Conc 33.1 g/dL (32-36); Mean Corpuscular Hgb 30.7 pg (27.0-32.0); Mean Corpuscular Volume 92.8 fL (80-94); Mean Platelet Vol. 9.2 fl (6.2-12.0); Monocyte# 0.29 X10^3/uL; Monocyte% 5.9 % (0-10); NRBC Flagged by Analyzer 0 % (0-5); Neutrophil # 3.19 X10^3/uL (2.7-7.7); Neutrophil % 64.9 % (47-70); Platelet Count 183 K/mm3 (150-450); RBC Distribution Width CV 12.9 % (11.6-14.6); RBC Distribution Width SD 43.9 fl (35.1-43.9); Red Blood Count 4.59 M/mm3 (4.6-6.2); White Blood Count 4.9 K/mm3 (4.4-11.0)
[2022-07-07 10:30] LABS: Hemoglobin A1c 5.9 % (3.8-5.6)
[2022-07-07 10:40] LABS: BNP,B-Type NATRIURETIC PEPTIDE 12.5 pg/mL (0-100)
[2022-07-07 10:51] LABS: Anion Gap 5 (5-15); BUN 12 mg/dL (7-18); BUN/Creat Ratio 12.3 RATIO (10-20); Calcium,Total 8.7 mg/dL (8.5-10.1); Chloride 109 mmol/L (98-107); Creatinine, Serum 0.97 mg/dL (0.70-1.30); EST Glomerular Filtration Rate 82 mL/min (>60); Est Glom Filt Rate - Afr Amer 99 mL/min (>60); Glucose 134 mg/dL (74-106); Sodium Level 141 mmol/L (136-145); Thyroid Stim Hormone (TSH) 1.87 uIU/mL (0.358-3.74)
== END | disposition home or self-care (01) ==
LOC: LAB 09:01
PROVIDERS: PCP Family Medicine; Referring Provider Physician Assistant Medical; Visit Provider Physician Assistant Medical
DX: I25.10 Atherosclerotic heart disease of native coronary artery without angina pectoris (principal); I42.0 Dilated cardiomyopathy; I50.22 Chronic systolic (congestive) heart failure; E11.9 Type 2 diabetes mellitus without complications; R06.02 Shortness of breath
CPT/HCPCS: 36415; 80048; 83036; 83880; 84443; 85025

== ENCOUNTER → 2022-07-15 | Outpatient (CLI) | payer MEDICARE, SELFPAY ==
--- NOTE | 2022-07-15 12:46 | ECHOD_ITS ---
Reason For Study: ASHD/CAD, SOB Procedure This was a 2D Doppler, Color Flow transthoracic echocardiogram. The study was technically difficult. Exam performed in department. Left Ventricle Normal LV size. Left ventricular systolic function is lower limits of normal. The estimated ejection fraction is 50 %. Paced septal motion. No evidence for diastolic dysfunction. Right Ventricle Normal RV size. ICD or pacer leads identified within the right ventricle. Normal systolic function. Atria Normal left atrium. Normal right atrium. ICD or pacer leads identified within the right atrium. No doppler evidence for ASD. Mitral Valve There is no mitral annular calcification. Normal mitral valve. Trivial mitral valve insufficiency. Tricuspid Valve Normal tricuspid valve. Trivial tricuspid valve insufficiency. Right ventricular systolic pressure estimated to be 26 mmHg. Aortic Valve Trisinus/trileaflet aortic valve. Mild focal aortic valve calcification. Trivial aortic valve insufficiency. Pulmonic Valve The pulmonic valve is not well visualized. Mild (1+) pulmonic valve insufficiency. Great Vessels Normal sized aortic root. Pericardium/Pleural No pericardial effusion. MMode/2D Measurements & Calculations LVIDd: 5.2 cm IVSd: 1.2 cm Ao root diam: 3.6 cm LVIDs: 4.4 cm LVPWd: 1.2 cm RVDd: 3.3 cm FS: 14.4 % LAV(MOD-bp): 63.1 ml LVAd ap4: 31.7 cm2 LVAd ap2: 24.8 cm2 LAV(MOD-bp) Indexed: 28.5 ml/m2 LVLd ap4: 8.2 cm LVLd ap2: 7.0 cm LAV(MOD-sp2): 67.8 ml EDV(MOD-sp4): 104.5 ml EDV(MOD-sp2): 72.3 ml LAV(MOD-sp4): 53.5 ml EDV(sp4-el): 104.3 ml EDV(sp2-el): 74.9 ml LVAs ap4: 19.7 cm2 LVAs ap2: 15.3 cm2 LVLs ap4: 6.4 cm LVLs ap2: 6.5 cm ESV(MOD-sp4): 49.9 ml ESV(MOD-sp2): 33.1 ml ESV(sp4-el): 51.3 ml ESV(sp2-el): 30.4 ml EF(MOD-sp4): 52.2 % EF(MOD-sp2): 54.3 % EF(sp4-el): 50.8 % SV(MOD-sp4): 54.5 ml SV(MOD-sp2): 39.3 ml SV(sp4-el): 53.0 ml LA dimension(2D): 3.9 cm LA A4 area: 20.0 cm2 RA A4 area: 18.3 cm2 Time Measurements MV dec time: 0.22 sec Doppler Measurements & Calculations MV E max satnam: 69.9 cm/sec Lat Peak E' Satnam: 6.9 cm/sec Med Peak E' Satnam: 5.4 cm/sec MV A max satnam: 74.6 cm/sec E/E' lat: 10.2 E/E' med: 12.9 MV E/A: 0.94 Ao V2 max: 117.5 cm/sec LV V1 max: 102.1 cm/sec PA V2 max: 104.1 cm/sec Ao max P.5 mmHg LV V1 max P.2 mmHg Ao V2 mean: 82.2 cm/sec LV V1 mean P.2 mmHg Ao mean P.1 mmHg LV V1 mean: 68.0 cm/sec Ao V2 VTI: 22.9 cm LV V1 VTI: 17.6 cm AV (velocity ratio): 0.77 TR max satnam: 236.2 cm/sec TR max P.5 mmHg ECHO/Echo Complete Interpretation Summary The study was technically difficult. Left ventricular systolic function is lower limits of normal. The estimated ejection fraction is 50 %. Paced septal motion. Trivial mitral valve insufficiency. Trivial tricuspid valve insufficiency. Mild focal aortic valve calcification. Trivial aortic valve insufficiency. Mild (1+) pulmonic valve insufficiency. Right ventricular systolic pressure estimated to be 26 mmHg. No evidence for diastolic dysfunction. ICD or pacer leads identified within the right atrium ICD or pacer leads identified within the right ventricle. Ordering Physician: Tabatha Almanza Referring Physician: Adin Lemus Performed By: Tiffanie Whitaker RDCS, RVT
== END | disposition home or self-care (01) ==
LOC: CVS 12:45
PROVIDERS: PCP Family Medicine; Referring Provider Physician Assistant Medical; Visit Provider Physician Assistant Medical
DX: R06.02 Shortness of breath (principal); I42.0 Dilated cardiomyopathy; I50.22 Chronic systolic (congestive) heart failure; I25.10 Atherosclerotic heart disease of native coronary artery without angina pectoris
CPT/HCPCS: 93306

== ENCOUNTER → 2023-04-01 | Outpatient (CLI) | payer MEDICARE, SELFPAY ==
[2023-04-01 10:37] LABS: AST(SGOT) 12 U/L (15-37); Alanine Aminotransfer ALT/SGPT 29 U/L (16-61); Albumin, Serum 3.4 g/dL (3.2-5.0); Alkaline Phosphatase 61 U/L (45-117); Bilirubin, Direct 0.11 mg/dL (0.00-0.30); Cholesterol 141 mg/dL (200); Globulin 3.2 g/dL (2.2-4.2); High Density Lipoprotein 41 mg/dL; Protein, Total 6.6 g/dL (6.4-8.2); Triglycerides 118 mg/dL; Very Low Density Lipoprotein 24 mg/dL (5-40)
== END | disposition home or self-care (01) ==
LOC: LAB 07:08
PROVIDERS: PCP Family Medicine; Referring Provider Nurse Practitioner Family; Visit Provider Nurse Practitioner Family
DX: E78.00 Pure hypercholesterolemia, unspecified (principal)
CPT/HCPCS: 36415; 80061; 80076

== ENCOUNTER → 2024-03-15 | Outpatient (CLI) | payer MEDICARE, SELFPAY | END | disposition home or self-care (01) | PROVIDERS: PCP Family Medicine; Referring Provider Physician Assistant Medical; Visit Provider Physician Assistant Medical | DX: I25.10 Atherosclerotic heart disease of native coronary artery without angina pectoris (principal); I42.0 Dilated cardiomyopathy | CPT/HCPCS: 93306 ==

== ENCOUNTER → 2024-11-29 | Outpatient (CLI) | payer MEDICARE, SELFPAY ==
--- OUTSIDE RECORDS SUMMARY | 2024-11-29 06:28 | XMS RPT_ITS | CCD ---
Author Organization [facility] Care Team Providers Care Gear Shaper Name Role Phone Naseem Escudero MD Unavailable SHAYAN HOSKINS Primary Care Unavailable SHAYAN HOSKINS Referring Unavailable POONAM JOSEPH Attending Unavailable FRANKY BOB Attending Unavailable SHAYAN HOSKINS Primary Care Unavailable SHAYAN HOSKINS Referring Unavailable FRANKY BOB Admitting Unavailable Shayan Hoskins MD Primary Care Provider Hieu Courtney (Hist) Unavailable UnavailDr. Shayan Méndez Primary Care Provider Dr. Shayan Hoskins Referring Provider Edda Caban Attending Provider Unavailable Dr. Simba Staton Attending Provider [phone] Shayan Hoskins MD Primary Care Provider Hieu Courtney (Hist) Unavailable UnavailDr. Shayan Méndez Primary Care Provider Dr. Shayan Hoskins Referring Provider Edda Caban Attending Provider Unavailable RAMON Bonner Attending Provider Dr. Shayan Hoskins Primary Care Provider Dr. Shayan Hoskins Referring Provider Edda Caban Attending Provider Unavailable RAMON Bonner Attending Provider Dr. Simba Staton Attending Provider Dr. Shayan Hoskins Primary Care Provider [phone] Dr. Shayan Hoskins Referring Provider Dr. Aashish Mathews Attending Provider Archie NAVARRO, RAMON Ya Attending Provider Edda Caban Attending Provider Unavailable Shayan Hoskins MD Primary Care Provider Tannhof GENERAL TELLER.METER SHOP SUPERVISOR, Veronique Unavailable René GENERAL TELLER.METER SHOP SUPERVISOR, Pranav Unavailable Tannhof GENERAL TELLER.METER SHOP SUPERVISOR, Veronique Unavailable Unavail able Allan OCHOA, Dr. Oakley Primary Care Provider Dr. Aashish Mathews MD Attending Provider Dr. Shayan Hoskins MD Referring Provider Sivakumar Teresa Attending Provider SHAYAN HOSKINS Primary Care Unavailable VERONIQUE VASQUEZ Referring Unavailabl e ALLAN, SHAYAN Connell Primary Care Unavailable VERONIQUE VASQUEZ Attending Unavailabl e Bisi, Tazewell Attending Unavailable Elderbrock, Shayan Primary Care Unavailable Elderbrock, Shayan Primary Care Unavailable Bisi, Aashish Attending Unavailable Bisi, Tazewell Attending Unavailable Elderbrock, Shayan Referring Unavailable Elderbrock, Shayan Primary Care Unavailable Pamela SPARROW, Ron Goznalez Attending Unavailable Elderbrock, Shayan Referring Unavailable Elderbrock, Shayan Primary Care Unavailable Bisi, Tazewell Attending Unavailable Elderbrock, Shayan Primary Care Unavailable Bisi, [place]az[place]ell Attending Unavailable Elderbrock, Shayan Primary Care Unavailable Elderbrock, Shayan Primary Care Unavailable Tabatha Bonner Referring Unavail able Tabatha Bonner Attending Unavail able Demiter, Sivakumar Referring Unavailable Demiter, Sivakumar Attending Unavailable Elderbrock, Shayan Primary Care Unavailable Demiter, Sivakumar Attending Unavailable Elderbrock, Shayan Primary Care Unavailable Elderbrock, Shayan Referring Unavailable Elderbrock, Shayan Primary Care Unavailable Bisi, Aashish Attending Unavailable Bisi, Aashish Attending Unavailable Elderbrock, Shayan Primary Care Unavailable Medications Current Medications Medication Drug Class(es) Dates Sig (Normalized) Sig (Original) amLODIPine 2.5 mg oral tablet (20 sources) Dihydropyridine Calcium Channel Lorelei Start: 11-22-2016 End: 04-10-2020 amLODIPine (NORVASC) 2.5 mg tablet 12/23/2016 Active metFORMIN hydrochloride 500 mg oral tablet (20 sources) Biguanide Start: 05-23-2024 take 1 tablet by mouth twice daily Metformin 500 mg tablet Active 500 mg PO TWICE A DAY May 23, 2024 9:32am Start: 05-28-2023 End: 05-16-2025 take 1 tablet by mouth twice daily at mealtime metFORMIN ER (GLUCOPHAGE XR) 500 mg 24 hr tablet Indications: Pre-diabetes Take 1 tablet by mouth two times a day with meals. 180 tablet 3 05/16/2024 05/16/2025 Active Start: 10-07-2021 End: 07-28-2023 take 1 tablet by mouth once daily at breakfast metFORMIN ER (GLUCOPHAGE XR) 500 mg 24 hr tablet Indications: Pre-diabetes Take 1 tablet by mouth daily with breakfast. 90 tablet 3 07/28/2022 07/28/2023 Active Start: 04-15-2021 End: 05-23-2024 take 1 tablet by mouth once daily Metformin 500 mg tablet Discontinued 500 mg PO DAILY April 15, 2021 1:00am May 23, 2024 9:33am Comment on above: Take 1 tablet by sultana th daily with breakfast. rosuvastatin calcium 10 mg oral tablet (20 sources) HMG-CoA Reductase Inhibitor Start: 9 End: take 1 tablet by mouth once daily at bedtime rosuvastatin (CRESTOR) 10 mg tablet Indications: Hyperlipidemia, mixed Take 1 tablet by mouth daily at bedtime. 90 tablet 3 08/15/2024 08/15/2025 Active Start: 01-24-2019 ROSUVASTATIN C ALCIUM 10 MG TABS 1 tab 1x daily as directed. ROSUVASTATIN CALCIUM [id number] Naseem Escudero MD Comment on above: Take 1 tablet by sultana th daily at bedtime. Completed/Discontinued Medications Medication Drug Class(es) Dates Sig (Normalized) Sig (Original) ampicillin 500 mg oral capsule (8 sources) Penicillin-class Antibacterial Start: 11-21-2016 End: 12-14-2017 take 1 capsule by mouth twice daily Ampicillin 500 MG capsule Discontinued 500 mg PO TWICE A DAY November 21, 2016 12:00am December 14, 2017 8:33am aspirin 81 mg delayed release oral tablet (20 sources) Platelet Aggregation Inhibitor, Nonsteroidal Anti-inflammatory Drug Start: 01-24-2019 ASPIRIN 81 TBEC 1 tab daily as directed. ASPIRIN TBEC [id number] Naseem Escudero MD Start: 11-22-2016 aspirin 81 mg chewable tablet 11/22/2016 Active atorvastatin 20 mg oral tablet (16 sources) HMG-CoA Reductase Inhibitor Start: 11-22-2016 End: 02-14-2019 take 1 tablet by mouth at bedtime Atorvastatin 20 MG tablet Discontinued 20 mg PO AT BEDTIME 30 July 13, 2017 1:34pm February 14, 2019 8:32am carvedilol 12.5 mg oral tablet (20 sources) alpha-Adrenergic Lorelei, beta-Adrenergic Lorelei Start: 02-15-2020 End: 11-17-2023 take 1 tablet by mouth twice daily at mealtime Carvedilol (Coreg) 12.5 mg tablet Discontinued 12.5 mg PO TWICE A DAY 180 December 03, 2022 5:28pm November 17, 2023 10:32am must administer with a meal/food Start: 01-05-2020 End: 02-15-2020 take 1 tablet by mouth twice daily at mealtime Carvedilol 6.25 mg tablet Discontinued 6.25 mg PO TWICE A DAY 60 January 05, 2020 1:31pm February 15, 2020 9:16am must administer with a meal/food Start: 12-27-2019 End: 01-05-2020 take 1 tablet by mouth twice daily at mealtime Carvedilol 3.125 mg tablet Discontinued 3.125 mg PO TWICE A DAY 60 December 27, 2019 1:32pm January 05, 2020 1:34pm must administer with a meal/food Comment on above: Take 12.5 mg by mout h twice daily with meals. clopidogrel 75 mg oral tablet (20 sources) P2Y12 Platelet Inhibitor Start: 0 End: 0 take 1 tablet by mouth once daily Clopidogrel 75 mg tablet Discontinued 75 mg PO DAILY January 27, 2020 10:07am February 07, 2020 9:23am For cardiac cath meloxicam 15 mg oral tablet (9 sources) Nonsteroidal Anti-inflammatory Drug Start: 9 End: 0 take 1 tablet by mouth once daily Meloxicam 15 mg tablet Discontinued 15 mg PO DAILY February 14, 2019 12:00am January 05, 2020 1:03pm Start: 01-24-2019 take 1 tablet by sultana th once daily MOBIC 15 MG TABS Take 1 tablet by mouth daily MELOXICAM [id number] Naseem Escudero MD ondansetron 4 mg disintegrating oral tablet (8 sources) Serotonin-3 Receptor Antagonist Start: 08-12-2020 End: 04-15-2021 take 1 tablet by mouth every eight hours as needed for nausea Ondansetron 4 MG tablet Discontinued 4 mg PO EVERY 8 HOURS NEEDED as needed for Nausea August 12, 2020 12:00am April 15, 2021 11:14am sacubitril 49 mg / valsartan 51 mg oral tablet (20 sources) Angiotensin 2 Receptor Lorelei Start: 04-10-2020 End: 05-23-2024 Sacubitril-Valsart an (Entresto) 49-51 mg tablet Discontinued 1 {tbl} PO TWICE A DAY 180 April 08, 2023 2:05pm May 23, 2024 9:33am Start: 02-15-2020 End: 04-10-2020 Sacubitril-Valsartan (Entres to) 24-26 mg tablet Discontinued 1 {tbl} PO TWICE A DAY 60 February 15, 2020 9:20am April 10, 2020 10:29am Comment on above: Take 1 tablet by sultana th twice daily. Problems Active Problems Problem Classification Problem Date Documented Da te Episodic/Chronic Conduction disorders (20 sources) Left bundle branch block; Translations: [Left bundle-branch block, unspecified] Onset: 01-22-2017 01-22-2017 Chronic Comment on above: Implant 09/17/20 @ O LOW Congestive heart failure; nonhypertensive (18 sources) Chronic systolic heart failure; Translations: [Chronic systolic (congestive) heart failure] Onset: 05-23-2024 Chronic Coronary atherosclerosis and other heart disease (20 sources) Coronary arteriosclerosis; Translations: [Atherosclerotic heart disease of [place] coronary artery without angina pectoris] Onset: 01-22-2017 01-22-2017 Chronic Diabetes mellitus without complication (14 sources) Type 2 diabetes mellitus without complication; Translations: [Type 2 diabetes mellitus without complications] Onset: 05-23-2024 Chronic Disorders of lipid metabolism (20 sources) Mixed hyperlipidemia; Translations: [Mixed hyperlipidemia] Onset: 01-22-2017 Chronic Essential hypertension (20 sources) Essential hypertension; Translations: [Essential (primary) hypertension] Onset: 03-07-2021 03-07-2021 Chronic Immunizations and screening for infectious disease (3 sources) Patient encounter status; Translations: [Encounter for immunization] Episodic Other lower respiratory disease (11 sources) Dyspnea on exertion; Translations: [Shortness of breath] 01-27-2020 Episodic Other lower respiratory disease (8 sources) Dyspnea; Translations: [Dyspnea, unspecified] 01-18-2019 Episodic Other lower respiratory disease (2 sources) Shortness of breath; Translations: [Shortness of breath] Onset: 10-31-2024 Episodic Other nutritional; endocrine; and metabolic disorders (1 source) Body mass index 30+ - obesity; Translations: [Obesity, unspecified] Onset: 01-24-2019 01-24-2019 Chronic Other screening for suspected conditions (not mental disorders or infectious disease) (8 sources) Cardiovascular stress test abnormal; Translations: [Abnormal result of other cardiovascular function study] 09-24-2020 Episodic Other skin disorders (8 sources) Excessive sweating; Translations: [Generalized hyperhidrosis] 01-18-2019 Episodic Other upper respiratory disease (1 source) Seasonal allergy; Translations: [Other seasonal allergic rhinitis] 12-15-2023 Chronic Other upper respiratory disease (1 source) Other seasonal allergic rhinitis; Translations: [Seasonal allergies] Onset: 12-15-2023 Chronic Rita-; endo-; and myocarditis; cardiomyopathy (except that caused by tuberculosis or sexually transmitted disease) (19 sources) Dilated cardiomyopathy; Translations: [Dilated cardiomyopathy] Onset: 06-19-2024 Chronic Residual codes; unclassified (10 sources) Obstructive sleep apnea syndrome; Translations: [Obstructive sleep apnea (adult) (pediatric)] 09-24-2020 Chronic Residual codes; unclassified (6 sources) Obstructive sleep apnea (adult) (pediatric); Translations: [Obstructive sleep apnea (adult)(pediatric)] Onset: 12-15-2023 07-07-2022 Chronic Past or Other Problems Problem Classification Problem Date Documented Da te Episodic/Chronic Diabetes mellitus without complication (6 sources) Prediabetes; Translations: [Prediabetes] Onset: 12-15-2023 Episodic Other connective tissue disease (1 source) Plantar fasciitis; Translations: [Plantar fascial fibromatosis] Onset: 01-24-2019 01-24-2019 Episodic Screening and history of mental health and substance abuse codes (2 sources) Encounter for screening for depression; Translations: [Encounter for screening examination for other mental health and behavioral disorders] Onset: 12-15-2023 Episodic Unclassified (1 source) Problem Results Test Name Value Interpretation Reference Range Facility Cardiology Visit Reporton Cardiology Visit Report [facility] [address] [place] [address] OFFICE VISIT Date of Service: 10/31/24 MR#: [id number] Acct: [id number] Name: JOSH WILKERSON Rep #: [id number] : 1955 Provider: RAMON Gray Age/Sex: 69/M [place] [facility] [place] Status: Signed HPI HPI History of Present Illness Details: Josh Wilkerson is a 69-year-old male who presents to office today for follow-up for monitoring his cardiovascular health. Patient has a history of coronary artery disease, cardiomyopathy. He was being considered for a BiV ICD; however, his EF improved. Patient underwent a CAMP COORDINATOR PPM on 09/17/2020. He has a history of hyperlipidemia, left bundle branch block, and QUEENIE. Upon presentation today, patient reports his dyspnea on exertion has gradually worsened. A year ago, he used to be able to walk the hill at his house without needing to stop and rest and now he has to stop and take a break. He also is finding himself having to stop while carrying 50lbs feed bags and used to be able to tolerate carrying 80lbs. He reports his friends are outdoing him when it comes to physical activity as he is finding himself needing to take frequent breaks. If he falls asleep without his CPAP mask on, he finds himself SOB. He denies orthopnea. He was chasing one of his horses and was running/walking and his legs gave out from under him and he fell. BP at home runs 100-110/60s-70s. Further ROS below. Intake Vital Signs 05/23/24 08:31 10/31/24 07:39 Height 5 ft 6 in 5 ft 6 in Weight: 250 lb BMI 40.3 BP 121/86 H Blood Pressure Location Lt brachial Position Sitting Respiration 18 Pulse 74 Pulse Source Monitor Pulse Oximetry (%) 96 Intake Visit Reasons: 6 M FU Dental Intern Required: No Is patient in pain?: No Allergies No Known Allergies Allergy (Verified 10/31/24 07:55) Medications ???Medication ???Instructions ???Recorded ???Confirmed ???Type aspirin 81 mg chewable tablet 81 mg PO DAILY@0800 ##30 11/22/10/31/24 Rx rosuvastatin 10 mg tablet (Crestor) 10 mg PO DAILY #90 tabs 2 10/31/24 Rx carvedilol 12.5 mg tablet (Coreg) 12.5 mg PO BID #180 tabs 11/17/23 10/31/24 Rx metformin 500 mg tablet 500 mg PO BID 05/23/24 10/31/24 Hi story sacubitril 49 mg-valsartan 51 mg 1 tab PO BID #180 tabs 05/23/24 Rx tablet (Entresto) Ejection fraction %: 50 Have you fallen in the past year?: No PFSH Medical History Presence of biventricular cardiac pacemaker ( 09/17/20) NYHA class 2 and ACC/AHA stage C chronic systolic congestive heart failure QUEENIE (obstructive sleep apnea) Shortness of breath on exertion Pure hypercholesterolemia Dilated cardiomyopathy Essential hypertension Left bundle branch block Atherosclerotic heart disease of [place] coronary artery without angina pectoris Surgical History History of left heart catheterization (LHC) ( 02/15/20) History of right arm surgery History of tonsillectomy Family History Mother Heart disease Pacemaker Cardiac defibrillator in place Social History Smoking Status: Never smoker alcohol intake: current alcohol intake frequency: holidays/special occasions only caffeine: Yes Type: coffee Number of servings: 3 ROS Const Const: Positive for weakness; Negative for fatigue, headache(s) or frequent falls Eyes Eyes: Negative for blurry vision ENT ENT: Negative for headache(s), dizziness or Nosebleed/epistaxis Cardio Chest Pain: No Palpitations: No Edema: None Muscle aches with walking: None Resp Respiratory: Positive for SOB with activity and SOB at rest; Negative for SOB orthopnea SOB lying down GI GI: Negative nausea, vomiting, heartburn, bright, red blood in stools or black,tarry stools : Negative for hematuria Neuro Neuro: Positive for weakness; Negative for dizziness, lightheadedness, near syncope, syncope, frequent falls, headache(s) or blurry vision Endo Endo: Negative for fatigue Cardiology Exam Const Appearance: cooperative, comfortable, no acute distress and well developed; Negative diaphoretic or ill appearing Nutritional Appearance: obese Orientation: alert and oriented x3 Ambulating without assistive device Head Head: normal to inspection, normocephalic and atraumatic Ears: hearing grossly normal bilaterally Nose: external nose normal and Negative epistaxis Face and Sinus: face symmetric Eyes General: appearance normal, both eyes and all related structures Eyelids: eyelids normal Conjunctivae: conjunctivae normal; Negative scleral icterus EOM: EOM intact bilaterall (more content not included)... Normal [facility] 10-26-2024 [facility] Telephone (FAMBuzzStreamWS) JOSH WILKERSON ([id number]) 1955 M Date Time Provider Department 10/26/24 SHAYAN HOSKINS [facility] During your visit today, we recorded the following information about you: Yuli Holm RN 10/26/2024 12:57 PM Signed Delmi from [facility] Call Center calling in and reports pt is requesting provider to place lab orders to have completed prior to his upcoming Physical on 12/05/24 with Leila Garcia CNP.. ISIDORO Escobar Mark D, MD 11/01/2024 8:15 AM Signed Labs ordered Shayan Hoskins MD Allergies As of Date: 10/26/2024 (No Known Allergies) Date Reviewed: 12/15/2023 Reviewed by: Katelin Zarate LPN - Fully Assessed Reason for Visit: Orders [681] Primary Visit Diagnosis:Coronary artery disease without angina pectoris, unspecified vessel or lesion type, unspecified whether [place] or transplanted heart [I25.10] Other Visit Diagnoses:Hyperlipidemi a, mixed [E78.2] Primary hypertension [I10] Pre-diabetes [R73.03] Order(s):COMPREHENSIVE METABOLIC PANEL [SQCMP] Order #: [id number] FUTURE COMPLETE BLOOD COUNT [SQCBC] Order #: [id number] FUTURE HEMOGLOBIN A1C [CCZVS4Q] Order #: [id number] FUTURE LIPID PANEL, FASTING [SQLIPB] Order #: [id number] FUTURE Prescriptions as of 11/01/2024 - rosuvastatin (CRESTOR) 10 mg tablet Take 1 tablet by mouth daily at bedtime. - metFORMIN ER (GLUCOPHAGE XR) 500 mg 24 hr tablet Take 1 tablet by mouth two times a day with meals. - carvedilol (COREG) 12.5 mg tablet Take 12.5 mg by mouth twice daily with meals. - sacubitril-valsartan (ENTRESTO) 49-51 mg tablet Take 1 tablet by mouth twice daily. - amLODIPine (NORVASC) 2.5 mg tablet - aspirin 81 mg chewable tablet Problem List As Of Date 10/26/2024 Noted Resolved Left bundle branch block (LBBB) [I44.7] 01/22/2017 CAD (coronary artery disease) [I25.10] 01/22/2017 Hyperlipidemia, mixed [E78.2] 01/22/2017 Primary hypertension [I10] 03/07/2021 Encounter Status:Closed by NICHOLE STAFFORD on 11/01/24 [facility] 08-12-2024 JOSEN Telephone (FAMPWS) JOSH WILKERSON ([id number]) 1955 M Date Time Provider Department 08/12/24 SHAYAN HOSKINS During your visit today, we recorded the following information about you: Monika Guerra 08/12/2024 3:58 PM Signed Patient requesting the following medication which has : rosuvastatin (CRESTOR) 10 mg tablet () Patient last seen 12-15-23 Future visit scheduled: no PHARMACY: [facility]/Pranav Nguyen APRN.CNP 08/15/2024 7:11 AM Signed Sent The following approved medication requests have been transmitted electronically. Requested Prescriptions Signed Prescriptions Disp Refills rosuvastatin (CRESTOR) 10 mg tablet 90 tablet 3 Sig: Take 1 tablet by mouth daily at bedtime. Authorizing Provider: PRANAV GARCIA APRN.CNP Allergies As of Date: 08/12/2024 (No Known Allergies) Date Reviewed: 12/15/2023 Reviewed by: Katelin Zarate LPN - Fully Assessed Reason for Visit: requesting medication that is [Other] Visit Diagnosis:Hyperlipidemi a, mixed [E78.2] Order(s):rosuvastatin (CRESTOR) 10 mg tabletTake 1 tablet by mouth daily at bedtime.Disp: 90 tabletRfl: 3 Prescriptions as of 08/15/2024 - rosuvastatin (CRESTOR) 10 mg tablet Take 1 tablet by mouth daily at bedtime. - metFORMIN ER (GLUCOPHAGE XR) 500 mg 24 hr tablet Take 1 tablet by mouth two times a day with meals. - carvedilol (COREG) 12.5 mg tablet Take 12.5 mg by mouth twice daily with meals. - sacubitril-valsartan (ENTRESTO) 49-51 mg tablet Take 1 tablet by mouth twice daily. - amLODIPine (NORVASC) 2.5 mg tablet - aspirin 81 mg chewable tablet Problem List As Of Date 08/12/2024 Noted Resolved Left bundle branch block (LBBB) [I44.7] 01/22/2017 CAD (coronary artery disease) [I25.10] 01/22/2017 Hyperlipidemia, mixed [E78.2] 01/22/2017 Primary hypertension [I10] 03/07/2021 Prescriptions ordered this encounter Disp Refills Start End ROSUVASTATIN 10 MG TABLET 90 t* 3 08/15/2024 08/15/2025 Route: ORAL Sig: Take 1 tablet by mouth daily at bedtime. Medications Discontinued During This Encounter Prescriptions - rosuvastatin (CRESTOR) 10 mg tablet (Discontinued) Take 1 tablet by mouth daily at bedtime. Encounter Status:Closed by PRANAV GARCIA on 08/15/24 Normal [facility] Cardiology Visit Reporton Cardiology Visit Report [facility] [address] [place] [address] OFFICE VISIT Date of Service: 05/23/24 MR#: [id number] Acct: [id number] Name: JOSH WILKERSON Rep #: [id number] : 1955 Provider: BHARTI adam Age/Sex: 68/M [place] [facility] [place] Status: Signed HPI HPI History of Present Illness Details: Josh Wilkerson is a 68-year-old white male who presents today for an outpatient cardiovascular follow-up. He has a history of coronary artery disease, cardiomyopathy. He was being considered for a BiV ICD, however his EF improved. He underwent a CAMP COORDINATOR PPM on 09/17/2020. He also has a history of hyperlipidemia, left bundle branch block, and obstructive sleep apnea. He denies chest, arm, jaw, or neck discomfort. He acknowledges palpitations. He denies bilateral lower extreme edema or claudication. He acknowledges shortness of breath active that has increased over the last year. He notes this carrying heavy bags of feed and walking up hill. He denies shortness of breath at rest or orthopnea. He denies lightheadedness, dizziness, near-syncope, syncope. He acknowledges fatigue with exertion. He states when bending down he notes not feeling right. Intake Vital Signs 04/06/23 08:08 05/23/24 08:31 Height 5 ft 6 in 5 ft 6 in Weight: 252 lb BMI 40.6 BP 116/78 Blood Pressure Location Lt brachial Position Sitting Respiration 18 Pulse 69 Pulse Source NIBP Intake Visit Reasons: 1 Y FU/BENITO @ 9:00 Dental Intern Required: No Accompanied by: Self Is patient in pain?: No Allergies No Known Allergies Allergy (Verified 05/23/24 08:32) Medications ???Medication ???Instructions ???Recorded ???Confirmed ???Type aspirin 81 mg chewable tablet 81 mg PO DAILY@0800 ##30 11/22/16 05/23/24 Rx rosuvastatin 10 mg tablet (Crestor) 10 mg PO DAILY #90 tabs 03/06/22 05/23/24 Rx carvedilol 12.5 mg tablet (Coreg) 12.5 mg PO BID #180 tabs 11/17/23 05/23/24 Rx metformin 500 mg tablet 500 mg PO BID 05/23/24 05/23/24 History sacubitril 49 mg-valsartan 51 mg 1 tab PO BID #180 tabs 05/23/24 05/23/24 Rx tablet (Entresto) Ejection fraction %: 30 Have you fallen in the past year?: No PFSH Medical History Atherosclerotic heart disease of [place] coronary artery without angina pectoris Dilated cardiomyopathy Essential hypertension Left bundle branch block NYHA class 2 and ACC/AHA stage C chronic systolic congestive heart failure QUEENIE (obstructive sleep apnea) Presence of biventricular cardiac pacemaker ( 09/17/20) Pure hypercholesterolemia Shortness of breath on exertion Surgical History History of left heart catheterization (LHC) ( 02/15/20) History of right arm surgery History of tonsillectomy Family History Mother Heart disease Pacemaker Cardiac defibrillator in place Social History Smoking Status: Never smoker alcohol intake: current alcohol intake frequency: holidays/special occasions only caffeine: Yes Type: coffee Number of servings: 3 ROS Const Const: Positive for fatigue (with exertion); Negative for weakness, headache(s) or weight gain ENT ENT: Negative for headache(s), dizziness, Nosebleed/epistaxis or balance problems Cardio Chest Pain: No Palpitations: Yes (feels pacemaker trigger) Edema: None Muscle aches with walking: None Resp Respiratory: Positive for SOB with activity (increased in the last year); Negative for SOB at rest or SOB orthopnea SOB lying down GI GI: Negative nausea, vomiting or heartburn : Negative for hematuria or frequent nighttime urination/ nocturia Musc Musc: Negative for muscle aches/ myalgia, muscle weakness, joint pain or balance problems Skin Skin: Negative non-healing lesions or rash Neuro Neuro: Negative for dizziness, lightheadedness, near syncope, syncope, headache(s) or weakness Endo Endo: Positive for fatigue (with exertion) Allergy Allergy/Immunology: Negative for rash Cardiology Exam Const Appearance: cooperative, healthy appearing, comfortable and no acute distress Nutritional Appearance: well nourished and obese Orientation: alert, awake and oriented x3 Head Head: normal to inspection Ears: hearing grossly normal bilaterally Nose: external nose normal Face and Sinus: face symmetric Mouth: moist mucous membranes Eyes General: appearance normal, both eyes and all related structures Eyelids: eyelids normal EOM: EOM intact bilaterally Neck Neck: normal visual inspection and no JVD Carotids: normal carotid upstroke Chest Chest inspection: normal inspection of the chest, symmetric chest movement, Pacemak (more content not included)... Normal [facility] Pacemaker Checkon 05-23-2024 Pacemaker Check [facility] [address] [place] [address]. [address] [place] [address] Pacemaker Check Date of Service: 05/23/24 1345 MR#: [id number] Acct: [id number] Name: NABEELJOSE RAMONJOSH Rep #: [id number] : 1955 From: Edda Caban Age/Sex: 68/M Location[place] [facility] Status: Signed Billing Codes PM Device Codes: 63772 PM Dev Prog Eval, Multi Assessment and Plan Assessment and Plan (1) Presence of biventricular cardiac pacemaker: Status: Acute Comment: Implant 09/17/20 @ [facility] (2) Dilated cardiomyopathy: Status: Chronic (3) Left bundle branch block: Status: Chronic 05/23/24 1346 Date Edda Mcconnell Signature: Date (if applicable) CC: Normal [facility] Echo Completeon 03-15-2024 Echo Complete [facility] [address] [place] [address] Echo Complete 03/15/24 1101 MR#: [id number] Acct: [id number] Name: JOSH WILKERSON Rep #: [id number] : 1955 68 From: Aashish Mathews MD Attending Dr: RAMON Rodriguez Status: REG CLI Ordering Dr: Tabatha Almanza Date: 03/04 06/27 Location: CVS Sex: M C Admitted: Reason For Study: ASHD/CAD Procedure This was a 2D Doppler, Color Flow transthoracic echocardiogram. The study was technically difficult. Exam performed in department. Left Ventricle Normal LV size. Left ventricular systolic function is lower limits of normal. The left ventricular ejection fraction is 50 %. Stage 1 diastolic dysfunction. No regional wall motion abnormalities noted. Right Ventricle Normal RV size. ICD or pacer leads identified within the right ventricle. Normal systolic function. Atria Normal left atrium. Normal right atrium. Mitral Valve Normal mitral valve. Tricuspid Valve Normal tricuspid valve. Aortic Valve Trisinus/trileaflet aortic valve. Pulmonic Valve Normal pulmonic valve. Great Vessels Normal aortic root. The pulmonary artery is normal size. Normal inferior vena cava. Pericardium/Pleural No pericardial effusion. MMode/2D Measurements Calculations LVIDd: 5.5 cm IVSd: 1.1 cm Ao root diam: 3.4 cm LVIDs: 4.4 cm LVPWd: 0.97 cm RVDd: 3.2 cm FS: 19.6 % LAV(MOD-bp): 35.8 ml LVAd ap4: 31.2 cm2 SV(MOD-sp4): 52.2 ml LAV(MOD-bp) Indexed: 16.3 ml/m2 LVLd ap4: 7.9 cm SI(MOD-sp4): 23.7 ml/m2 LAV(MOD-sp2): 32.7 ml EDV(MOD-sp4): 101.3 ml LAV(MOD-sp4): 37.3 ml EDV(sp4-el): 104.5 ml LVAs ap4: 19.6 cm2 LVLs ap4: 6.7 cm ESV(MOD-sp4): 49.1 ml ESV(sp4-el): 48.9 ml EF(MOD-sp4): 51.5 % EF(sp4-el): 53.2 % SV(sp4-el): 55.6 ml LA A4 area: 15.4 cm2 LA dimension(2D): 3.8 cm RA A4 area: 14.5 cm2 TAPSE: 1.7 cm Time Measurements MV dec time: 0.23 sec Doppler Measurements Calculations MV E max delmy: 50.4 cm/sec Lat Peak E' Delmy: 6.0 cm/sec Med Peak E' Delmy: 6.9 cm/sec MV A max delmy: 70.7 cm/sec E/E' lat: 8.4 E/E' med: 7.3 MV E/A: 0.71 MV V2 max: 82.1 cm/sec MV P1/2t max delmy: 65.3 cm/sec Ao V2 max: 127.0 cm/sec MV max P.7 mmHg MV P1/2t: 83.8 msec Ao max P.5 mmHg MV V2 mean: 41.6 cm/sec Ao V2 mean: 86.5 cm/sec MV mean P.84 mmHg MV dec slope: 228.3 cm/sec2 Ao mean P.5 mmHg MV V2 VTI: 27.2 cm MVA(P1/2t): 2.6 cm2 Ao V2 VTI: 22.7 cm AV (velocity ratio): 0.84 LV V1 max: 108.7 cm/sec PA V2 max: 77.5 cm/sec LV V1 max P.7 mmHg PA V2 mean: 50.1 cm/sec LV V1 mean P.7 mmHg LV V1 mean: 78.1 cm/sec LV V1 VTI: 19.2 cm ECHO/Echo Complete Interpretation Summary Normal LV size. Left ventricular systolic function is lower limits of normal. The left ventricular ejection fraction is 50 %. ICD or pacer leads identified within the right ventricle. Stage 1 diastolic dysfunction. Compared to previous study, the left ventricular systolic function is the same.. Ordering Physician: Tabatha Almanza Referring Physician: Tabatha Almanza Performed By: Rajendra Valero RCS 03/15/241705 Date Aashish Mathews MD CC: Dr. 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 A1c has come down from 6.1 to 5.8. LDL cholesterol was normal but HDL cholesterol was low. I would recommend that he continue to take all medication as prescribed. Continue to work on lifestyle changes at home, decrease processed foods in the diet, increase lean protein, vegetables, and get some form of exercise. I would like to get repeat fasting labs in 6 months prior to next office visit. Please let me know if he has any questions. Thank you. Veronique Vasquez APRN.Katelin Calvo LPN 12/16/2023 4:48 PM Signed TC to ptMichael GOODWIN to call office, ask for triage nurse to get results. JAJA Leija Beth, LPN 12/17/2023 2:16 PM Signed Patient returned call and went over results, notes from Veronique Vasquez DONOR PROCESSOR with understanding. Allergies As of Date: 12/16/2023 (No Known Allergies) Date Reviewed: 12/15/2023 Reviewed by: Katelin Zarate LPN - Fully Assessed Reason for Visit: Results [95] Cmt: Labs Primary Visit Diagnosis:Pre-diabetes [R73.03] Other Visit Diagnoses:Primary hypertension [I10] Coronary artery disease without angina pectoris, unspecified vessel or lesion type, unspecified whether [place] or transplanted heart [I25.10] Hyperlipidemia, mixed [E78.2] Order(s):COMPREHENSIVE METABOLIC PANEL [SQCMP] Order #: [id number] FUTURE LIPID PANEL BASIC [SQLIPB] Order #: [id number] FUTURE HEMOGLOBIN A1C [EOJTL8L] Order #: [id number] FUTURE Prescriptions as of 12/17/2023 - metFORMIN ER (GLUCOPHAGE XR) 500 mg 24 hr tablet Take 1 tablet by mouth two times a day with meals. - rosuvastatin (CRESTOR) 10 mg tablet Take 1 tablet by mouth daily at bedtime. - carvedilol (COREG) 12.5 mg tablet Take 12.5 mg by mouth twice daily with meals. - sacubitril-valsartan (ENTRESTO) 49-51 mg tablet Take 1 tablet by mouth twice daily. - amLODIPine (NORVASC) 2.5 mg tablet - aspirin 81 mg chewable tablet Problem List As Of Date 12/16/2023 Noted Resolved Left bundle branch block (LBBB) [I44.7] 01/22/2017 CAD (coronary artery disease) [I25.10] 01/22/2017 Hyperlipidemia, mixed [E78.2] 01/22/2017 Primary hypertension [I10] 03/07/2021 Encounter Status:Closed by OLINDA BRITO on 12/17/23 [facility] CNOVon 12-15-2023 CNOV Office Visit (FAMPWS ) JOSH WILKERSON ([id number]) 1955 M Date Time Provider Department 12/15/23 7:00 AM VERONIQUE VASQUEZ During your visit today, we recorded the following information about you: Pulse Respiration Blood pressure Weight 80/minute 16/minute 100/70 113 kg Veronique Vasquez APRN.[employer]PER[employer] 12/15/2023 7:40 AM Signed This is a 68 year old male who presents today with: Patient presents with: 6 Month Exam HISTORY OF PRESENT ILLNESS: Josh Wilkerson is a 68 year old male. Patient presents with: 6 Month Exam 6 month follow up Prediabetes: Taking metformin 500 mg BID. Watching diet, Due for A1C. Lipids: Taking Crestor 10 mg. Trying to watch diet. CAD/HTN: Following with cardiology, [facility]. Had lipids completed in Fall 2022. Taking Carvidiol 12.5 mg BID, Norvasc 2.5 mg daily, ASA 81 mg daily, Entresto 49-50 BID. QUEENIE: Using Cpap. Sleeping well, waking up refreshed. Watery eyes and runny nose, seems to wax and wane. Has tried benadryl which has been helpful. No fever or chills. PAST MEDICAL HISTORY: PAST MEDICAL HISTORY No date: CAD (coronary artery disease) No date: Detached retina No date: Hyperlipemia No date: Snoring PAST SURGICAL HISTORY 20 years ago: COLONOSCOPY 09/15/2016: COLONOSCOPY FLX DX W/COLLJ SPEC WHEN PFRMD Comment: Colonoscopy 11/11/2019: COLONOSCOPY FLX DX W/COLLJ SPEC WHEN PFRMD Comment: Colonoscopy No date: PAST SURGICAL HISTORY OF; Right Comment: fracture repair arm No date: PAST SURGICAL HISTORY OF Comment: laser surgery for detached retina ALLERGIES Patient has no known allergies. MEDICATIONS Current Outpatient Medications Medication Sig metFORMIN ER (GLUCOPHAGE XR) 500 mg 24 hr tablet Take 1 tablet by mouth two times a day with meals. rosuvastatin (CRESTOR) 10 mg tablet Take 1 tablet by mouth daily at bedtime. carvedilol (COREG) 12.5 mg tablet Take 12.5 mg by mouth twice daily with meals. sacubitril-valsartan (ENTRESTO) 49-51 mg tablet Take 1 tablet by mouth twice daily. amLODIPine (NORVASC) 2.5 mg tablet (Patient not taking: No sig reported) aspirin 81 mg chewable tablet No current facility-administered medications for this visit. FAMILY HISTORY Problem Relation Age of Onset Heart disease Mother Cancer Mother Cancer Brother colon Prostate Cancer Paternal Grandfather Social History Tobacco Use Smoking status: Never Smokeless tobacco: Never Substance Use Topics Alcohol use: Yes Comment: occcasionally Drug use: No REVIEW OF SYSTEMS GENERAL: No weight loss, malaise or fevers/chills HEENT: + Watery eyes and rhinorrhea. NECK: Negative for lumps, goiter, pain and significant neck swelling RESPIRATORY: Negative for cough, hemoptysis, wheezing, dyspnea or shortness of breath CARDIOVASCULAR: Negative for chest pain, leg swelling, orthopnea, or palpitations GI: No nausea, vomiting, or diarrhea/constipation. No hematochezia/melena. No heartburn or reflux symptoms. : No history of dysuria, frequency or incontinence MUSCULOSKELETAL: Negative for joint pain or swelling. SKIN: Negative for lesions, rash, and itching ENDOCRINE: Negative for cold or heat intolerance, polyuria, polydipsia and goiter NEURO: No history of headaches, syncope, paralysis, seizures or tremors MOOD: Negative for depression, anxiety, or suicidal ideation. EXAM: BP 100/70 Pulse 80 Resp 16 Wt 113 kg (249 lb 1.9 oz) SpO2 96% BMI 41.01 kg/m? PHYSICAL EXAM: General Appearance: Well appearing, alert, in no acute distress, well-hydrated, well nourished. Skin: Skin color, texture, turgor normal, no suspicious rashes or lesions. Head: Normocephalic, no masses, lesions, tenderness or abnormalities. Eyes: Anicteric sclera. Pupils are equally round and reactive to light. Extraocular movements are intact. Ears: External ears normal, canals clear. TM's dull Neck: Supple, no adenopathy; thyroid symmetric, normal size, no bruits. Lungs: Lungs clear to auscultation. No wheezing, rhonchi, rales. Heart: RRR without murmur, gallop, or rubs. No ectopy. Extremities: No deformities, edema, skin discoloration, clubbing or cyanosis. Good capillary refill. Peripheral Pulses: Normal, Capillary refill <2secs, strong peripheral pulses, Pulses palpable. Neurologic: Gait normal. Sensation grossly intact. ASSESSMENT/PLAN: 1. Pre-diabetes - ICD9: 790.29, ICD10: R73.03 (primary diagnosis) - Get labs completed - Continue to take medication as prescribed. - Continue to work on eating a low carb diet at home. 2. Primary hypertension - ICD9: 401.9, ICD10: I10 - Controlled - Continue current medications - Recommend home blood pressure monitoring, to bring results to next visit - Encouraged sodium restriction, DASH or Mediterranean diet - Recommend regular aerobic exercise - Discussed need for and benefit of weight loss. BMI 41.0 (more content not included)... Normal [facility] Comprehensive metabolic 2000 panelon 12-15-2023 Albumin [Mass/Vol] 4.2 g/dL Normal 3.9-4.9 [facility] Comment on above: Order Comment: Speci men Type: BLOOD SPECIMEN Ordering Facility: [facility] Address: [address] [place] [address] Performed By: #### 2 4323-8, 94356-2 #### [facility] CLIA [id number] [address] [place] [address] [place] ALP [Catalytic activity/Vol] 60 U/L Normal 38-113 [facility] Comment on above: Order Comment: Speci men Type: BLOOD SPECIMEN Ordering Facility: [facility] Address: [address] [place] [address] Performed By: #### 2 4323-8, 35310-6 #### [facility] CLIA [id number] [address] [place] [address] [place] ALT [Catalytic activity/Vol] 24 U/L Normal 10-54 [facility] Comment on above: Order Comment: Speci men Type: BLOOD SPECIMEN Ordering Facility: [facility] Address: [address] [place] [address] Performed By: #### 2 4323-8, 72297-8 #### [facility] CLIA [id number] [address] [place] [address] [place] Anion gap [Moles/Vol] 12 mmol/L Normal 8-15 [facility] Comment on above: Order Comment: Speci men Type: BLOOD SPECIMEN Ordering Facility: [facility] Address: [address] [place] [address] Performed By: #### 2 4323-8, 19766-8 #### [facility] CLIA [id number] [address] [place] [address] [place] AST [Catalytic activity/Vol] 22 U/L Normal 14-40 [facility] Comment on above: Order Comment: Speci men Type: BLOOD SPECIMEN Ordering Facility: [facility] Address: [address] [place] [address] Performed By: #### 2 4323-8, 45414-6 #### [facility] CLIA [id number] [address] [place] [address] [place] Bilirubin [Mass/Vol] 0.4 mg/dL Normal 0.2-1.3 [facility] Comment on above: Order Comment: Speci men Type: BLOOD SPECIMEN Ordering Facility: [facility] Address: [address] [place] [address] Performed By: #### 2 4323-8, 55754-9 #### [facility] CLIA [id number] [address] [place] [address] [place] Calcium [Mass/Vol] 9.0 mg/dL Normal 8.5-10.2 [facility] Comment on above: Order Comment: Speci men Type: BLOOD SPECIMEN Ordering Facility: [facility] Address: [address] [place], [place] [address] Performed By: #### 2 4323-8, 13084-8 #### [facility] CLIA [id number] [address] [place] [address] [place] Chloride [Moles/Vol] 107 mmol/L Normal 98-107 [facility] Comment on above: Order Comment: Speci men Type: BLOOD SPECIMEN Ordering Facility: [facility] Address: [address] [place] [address] Performed By: #### 2 4323-8, 02195-9 #### [facility] CLIA [id number] [address] [place] [address] [place] CO2 [Moles/Vol] 20 mmol/L Low 22-30 [facility] Comment on above: Order Comment: Speci men Type: BLOOD SPECIMEN Ordering Facility: [facility] Address: [address] [place] [address] Performed By: #### 2 4323-8, 03843-6 #### [facility] CLIA [id number] [address] [place] [address] [place] Creatinine [Mass/Vol] 0.87 mg/dL Normal 0.73-1.22 [facility] Comment on above: Order Comment: Speci men Type: BLOOD SPECIMEN Ordering Facility: [facility] Address: [address] [place] [address] Performed By: #### 2 4323-8, 89417-9 #### [facility] CLIA [id number] [address] [place] [address] [place] Creatinine and Glomerular filtration rate.predicted panel (S/P/Bld) 93 mL/min/1.73m??? Normal >=60 [facility] Comment on above: Order Comment: Speci men Type: BLOOD SPECIMEN Ordering Facility: [facility] Address: [address] [place] [address] Result Comment: Myrna mated Glomerular Filtration Rate (eGFR) is calculated using the 2020 CKD-EPI creatinine equation. This equation utilizes serum creatinine, sex, and age as parameters. The creatinine assay has traceable calibration to isotope dilution-mass spectrometry. Refer to KDIGO guidelines for clinical interpretation. In patients with unstable renal function, e.g. those with acute kidney injury, the eGFR may not accurately reflect actual GFR. Performed By: #### 2 4323-8, 52247-4 #### [facility] CLIA [id number] [address] [place] [address] [place] Glucose [Mass/Vol] 114 mg/dL High 74-99 [facility] Comment on above: Order Comment: Speci men Type: BLOOD SPECIMEN Ordering Facility: [facility] Address: [address] [place] [address] Result Comment: The [place] Diabetes Association (ADA) provides guidance for cutoff values for fasting glucose and random glucose. The ADA defines fasting as no caloric intake for at least 8 hours. Fasting plasma glucose results between 100 to 125 mg/dL indicate increased risk for diabetes (prediabetes). Fasting plasma glucose results greater than or equal to 126 mg/dL meet the criteria for diagnosis of diabetes. In the absence of unequivocal hyperglycemia, results should be confirmed by repeat testing. In a patient with classic symptoms of hyperglycemia or hyperglycemic crisis, random plasma glucose results greater than or equal to 200 mg/dL meet the criteria for diagnosis of diabetes. Reference: Standards of Medical Care in Diabetes 2016, [place] Diabetes Association. Diabetes Care. 2016.39(Suppl 1). Performed By: #### 2 4323-8, 60958-1 #### [facility] CLIA [id number] [address] [place] [address] [place] Potassium [Moles/Vol] 4.4 mmol/L Normal 3.7-5.1 [facility] Comment on above: Order Comment: Jessei men Type: BLOOD SPECIMEN Ordering Facility: [facility] Address: [address] [place] [address] Performed By: #### 2 4323-8, 71502-0 #### [facility] CLIA [id number] [address] [place] [address] [place] Protein [Mass/Vol] 6.5 g/dL Normal 6.3-8.0 [facility] Comment on above: Order Comment: Jessei men Type: BLOOD SPECIMEN Ordering Facility: [facility] Address: [address] [place] [address] Performed By: #### 2 4323-8, 24324-0 #### [facility] CLIA [id number] [address] [place] [address] [place] Sodium [Moles/Vol] 139 mmol/L Normal 136-144 [facility] Comment on above: Order Comment: Speci men Type: BLOOD SPECIMEN Ordering Facility: [facility] Address: [address] [place] [address] Performed By: #### 2 4323-8, 29210-5 #### [facility] CLIA [id number] [address] [place] [address] [place] Urea nitrogen [Mass/Vol] 14 mg/dL Normal 9-24 [facility] Comment on above: Order Comment: Speci men Type: BLOOD SPECIMEN Ordering Facility: [facility] Address: [address] [place] [address] Performed By: #### 2 4323-8, 94242-0 #### [facility] CLIA [id number] [address] [place] [address] [place] HbA1c (Bld)on 12-15-2023 Average glucose Estimated from glycated hemoglobin (Bld) [Mass/Vol] 120 mg/dL Normal [facility] Comment on above: Order Comment: Speci men Type: BLOOD SPECIMEN Ordering Facility: [facility] Address: [address] [place] [address] Result Comment: eAG: (Estimated average glucose) is a calculated value from HgbA1c and is insurance verification representative of the average blood glucose level in the last 2-3 month period. Performed By: #### 5 5454-3 #### [facility] CLIA [id number] [address] [place] [address] [place] HbA1c (Bld) [Mass fraction] 5.8 % High 4.3-5.6 [facility] Comment on above: Order Comment: Speci men Type: BLOOD SPECIMEN Ordering Facility: [facility] Address: [address] [place] [address] Result Comment: [place] Diabetes Association guidelines indicate that patients with HgbA1c in the range 5.7-6.4% are at increased risk for development of diabetes, and intervention by lifestyle modification may be beneficial. HgbA1c greater or equal to 6.5% is considered diagnostic of diabetes. Performed By: #### 5 5454-3 #### [facility] CLIA [id number] [address] [place] [address] [place] Lipid 1996 panelon 4 Cholesterol [Mass/Vol] 133 mg/dL Normal <200 [facility] Comment on above: Order Comment: Asif dupree Type: BLOOD SPECIMEN Ordering Facility: [facility] Address: [address] [place] [address] Result Comment: <200 mg/dL, Desirable 200-239 mg/dL, Borderline high >239 mg/dL, High Performed By: #### 2 4323-8, 18870-0 #### [facility] CLIA [id number] [address] [place] [address] [place] Cholesterol in HDL [Mass/Vol] 34 mg/dL Low >39 [facility] Comment on above: Order Comment: Asif dupree Type: BLOOD SPECIMEN Ordering Facility: [facility] Address: [address] [place] [address] Result Comment: 40-5 9 mg/dL, Acceptable >59 mg/dL, High: Negative risk factor for coronary heart disease <40 mg/dL, Low: Positive risk factor for coronary heart disease Performed By: #### 2 4323-8, 78457-9 #### [facility] CLIA [id number] [address] [place] [address] [place] Cholesterol in LDL [Mass/Vol] 74 mg/dL Normal <100 [facility] Comment on above: Order Comment: Asif dupree Type: BLOOD SPECIMEN Ordering Facility: [facility] Address: [address] [place] [address] Result Comment: <100 mg/dL, Optimal 100-129 mg/dL, Near optimal/above optimal 130-159 mg/dL, Borderline high 160-189 mg/dL, High >189 mg/dL, Very high Secondary prevention optimal LDL Cholesterol levels are recommended to be < 70 mg/dL Performed By: #### 2 4323-8, 52457-7 #### [facility] CLIA [id number] [address] [place] [address] [place] Cholesterol in LDL/Cholesterol in HDL [Mass ratio] 2.18 {ratio} Normal <2.54 [facility] Comment on above: Order Comment: Asif dupree Type: BLOOD SPECIMEN Ordering Facility: [facility] Address: [address] [place] [address] Result Comment: Refmoraima shahce: 1. National Cholesterol Education Program ATP III Guideline At-A-Glance Quick Desk Reference: National Heart, Lung, and Blood [place]. National Institutes of Health. 2001: NIH Publication No. 01-3305. 2. An International Atherosclerosis Society position paper: global recommendations for the management of dyslipidemia: executive summary, Atherosclerosis. 2014: 232(2):410-413. Performed By: #### 2 4323-8, 75854-5 #### [facility] CLIA [id number] [address] [place] [address] [place] Cholesterol in VLDL [Mass/Vol] 25 mg/dL Normal <30 [facility] Comment on above: Order Comment: Asif dupree Type: BLOOD SPECIMEN Ordering Facility: [facility] Address: [address] [place] [address] Performed By: #### 2 4323-8, 46800-4 #### [facility] CLIA [id number] [address] [place] [address] [place] Cholesterol non HDL [Mass/Vol] 99 mg/dL Normal <130 [facility] Comment on above: Order Comment: Asif dupree Type: BLOOD SPECIMEN Ordering Facility: [facility] Address: [address] [place] [address] Result Comment: <130 mg/dL, Optimal 130-159 mg/dL, Near optimal/above optimal 160-189 mg/dL, Borderline high 190-219 mg/dL, High >219 mg/dL, Very high Secondary prevention optimal non HDL Cholesterol levels are recommended to be <100 mg/dL Performed By: #### 2 4323-8, 68841-7 #### [facility] CLIA [id number] [address] [place] [address] [place] Cholesterol.total/Cho lesterol in HDL [Mass ratio] 3.91 {ratio} Normal <5.10 [facility] Comment on above: Order Comment: Speci men Type: BLOOD SPECIMEN Ordering Facility: [facility] Address: [address] [place] [address] Performed By: #### 2 4323-8, 10079-7 #### [facility] CLIA [id number] [address] [place] [address] [place] FASTING TIME 12 hrs Normal [facility] Comment on above: Order Comment: Speci men Type: BLOOD SPECIMEN Ordering Facility: [facility] Address: [address] [place] [address] Performed By: #### 2 4323-8, 07818-3 #### [facility] CLIA [id number] [address] [place] [address] [place] Triglyceride [Mass/Vol] 127 mg/dL Normal <150 [facility] Comment on above: Order Comment: Speci men Type: BLOOD SPECIMEN Ordering Facility: [facility] Address: [address] [place] [address] Result Comment: <150 mg/dL, Normal 150-199 mg/dL, Borderline high 200-499 mg/dL, High >499 mg/dL, Very high Performed By: #### 2 4323-8, 46326-3 #### [facility] CLIA [id number] [address] [place] [address] [place] Basophil percentageOrdered B y: Ron Santiago on 04-01-2023 Bilirubin [Mass/Vol] 0.40 mg/dL 0.20-1.00 [facility] Comment on above: For patients on eltr ombopag therapy, use of Dimension [place] TBIL is not recommended. Cholesterol [Mass/Vol] 141 mg/dL <200 [facility] Comment on above: <200 mg/dL Desirable 200-240 mg/dL Borderline >240 mg/dL High Risk Protein [Mass/Vol] 6.6 g/dL 6.4-8.[address] [facility] Triglyceride [Mass/Vol] 118 mg/dL <199 [facility] Comment on above: The drugs N-Acetylcy steine and Metamizole may falsely depress this assay.Serum Triglycerides Reference Interval Normal <150 mg/dL Borderline high 150 - 199 mg/dL High 200 - 499 mg/dL Very High > or = 500 mg/dL Direct bilirubinOrdered By: Ron Santiago on 04-01-2023 Bilirubin.direct [Mass/Vol] 0.11 mg/dL 0.00-0.30 [facility] Laboratory - Chemistry and C hemistry - challengeOrdered By: Ron Santiago on 04-01-2023 ALP [Catalytic activity/Vol] 61 U/L 45-117 [facility] ALT [Catalytic activity/Vol] 29 U/L 16-61 [facility] Globulin (S) [Mass/Vol] 3.2 g/dL 2.2-4.2 [facility] Serum or plasma albumin cordelia urement (mass/volume)Ordered By: Ron Santiago on 04-01-2023 Albumin [Mass/Vol] 3.4 g/dL 3.2-5.[address] [facility] Serum or plasma cholesterol in HDL measurement (mass/volume)Ordered By: Ron Santiago on 04-01-2023 Cholesterol in HDL [Mass/Vol] 41 mg/dL >40 [facility] Comment on above: The drugs N-Acetylcy steine and Metamizole may falsely depress this assay. Reference Range HDL <40 mg/dL Low HDL Cholesterol HDL >or= 60 mg/dL High HDL Cholesterol Serum or plasma cholesterol in VLDL measurement (mass/volume)Ordered By: Ron Santiago on 04-01-2023 Cholesterol in VLDL [Mass/Vol] 24 mg/dL 5-40 [facility] Serum or plasma low density lipoprotein (LDL) cholesterol measurement (mass/volume)Ordered By: Ron Santiago on 04-01-2023 Cholesterol in LDL [Mass/Vol] 76 mg/dL 0-130 [facility] Thin prep Papanicolaou smear with manual screeningOrdered By: Ron Santiago on 04-01-2023 Thin prep Papanicolaou smear with manual screening 12 U/L 15-37 [facility] LUNG VOLUMESon 07-31-2022 ERV BOX (L) 0.28 L [facility] COV67-13% POST (L/S) 2.35 L/S [facility] YEX41-84% PRE (L/S) 1.69 L/S [facility] land [facility] FEV1 PRE (L) 1.94 L [facility] FEV1/FVC POST (%) 80 % [facility] nd [facility] FEV1/FVC PRE (%) 79 % [facility] d [facility] FEV1_POST (L) 2.14 L [facility] FRC Box (L) 2.37 L [facility] FVC POST (L) 2.66 L [facility] FVC PRE (L) 2.46 L [facility] IC BOX (L) 2.71 L [facility] PEF POST (L/S) 7.12 L/S [facility] PEF PRE (L/S) 6.56 L/S [facility] RV Box (L) 2.03 L [facility] RV/TLC Box (%) 41 % [facility] TLC Box (L) 4.95 L [facility] VC (L) BOX 3.03 L [facility] SPIROMETRY - BASELINE AND PO ST DILATORon 07-31-2022 [facility] Absolute lymphocyte countOrd ered By: Tabatha Almanza on 07-07-2022 Lymphocytes Auto (Unsp spec) [#/Vol] 1.26 10*3/uL 0.83-4.51 [facility] Basophil percentageOrdered B y: Tabatha Almanza on 07-07-2022 Basophils/100 WBC (Bld) 1.0 % 0-1 [facility] Chloride [Moles/Vol] 109 mmol/L 98-107 [facility] Eosinophils/100 WBC (Bld) 1.8 % 0-5 [facility] Glucose [Mass/Vol] 134 mg/dL 74-[address] [facility] Comment on above: Fasting Glucose resu lt greater than or equal to 126 mg/dL suggests DIABETES MELLITUS per A.D.A. criteria. Neutrophils (Bld) [#/Vol] 3.2 10*3/uL 2.0-7.7 [facility] Neutrophils/100 WBC (Bld) 64.9 % 47-70 [facility] Potassium [Moles/Vol] 4.0 mmol/L 3.5-5.1 [facility] Sodium [Moles/Vol] 141 mmol/L 136-[address] [facility] WBC (Bld) [#/Vol] 4.9 10*3/uL 4.4-11.[address] [facility] Blood erythrocytes count (nu mber/volume)Ordered By: Tabatha Almanza on 07-07-2022 RBC (Bld) [#/Vol] 4.59 10*6/uL 4.6-6.2 [facility] Blood hemoglobin measurement (mass/volume)Ordered By: Tabatha Almanza on 07-07-2022 Hemoglobin (Bld) [Mass/Vol] 14.1 g/dL 13.0-16.5 [facility] Blood lymphocytes/100 leukoc ytesOrdered By: Tabatha Almanza on 07-07-2022 Lymphocytes/100 WBC (Bld) 25.6 % 19-41 [facility] Blood monocytes/100 leukocyt esOrdered By: Tabatha Almanza on 07-07-2022 Monocytes/100 WBC (Bld) 5.9 % 0-10 [facility] Blood platelet mean volumeOr dered By: Tabatha Almanza on 07-07-2022 Platelet mean volume (Bld) [Entitic vol] 9.2 fL 6.2-12.0 [facility] Determination of erythrocyte mean corpuscular volume (MCV)Ordered By: Tabatha Almanza on 07-07-2022 MCV (RBC) [Entitic vol] 92.8 fL 80-94 [facility] Hematocrit Auto (Bld) [Volum e fraction]Ordered By: Tabatha Almanza on 07-07-2022 Hematocrit (Bld) [Volume fraction] 42.6 % 40-54 [facility] - Chemistry and C hemistry - challengeOrdered By: Tabatha Almanza on 07-07-2022 CO2 [Moles/Vol] 27.0 mmol/L 21.0-32.0 [facility] Natriuretic peptide B (Bld) [Mass/Vol] 12.5 pg/mL 0-100 [facility] Urea nitrogen/Creatinine [Mass ratio] 12.3 mg/mg 10-20 [facility] - Hematology and Cell countsOrdered By: Tabatha Almanza on 07-07-2022 Erythrocyte distribution width (RBC) [Entitic vol] 43.9 fL 35.1-43.9 [facility] Erythrocyte distribution width (RBC) [Ratio] 12.9 % 11.6-14.6 [facility] Immature granulocytes/100 WBC (Bld) 0.800 % 0.0-0.9 [facility] Comment on above: IG% - Immature Granu locytes (promyelocytes, myelocytes and metamyelocytes) > 1% indicates that a LEFT SHIFT is Present. MCH (RBC) [Entitic mass] 30.7 pg 27.0-32.0 [facility] Nucleated RBC/100 WBC (Bld) [Ratio] 0 % 0-5 [facility] MCHC Auto (RBC) [Mass/Vol]Or dered By: Tabatha Almanza on 07-07-2022 MCHC (RBC) [Mass/Vol] 33.1 g/dL 32-36 [facility] No Panel InformationOrdered By: Tabatha Almanza on 07-07-2022 Estimated GFR (MDRD) Amer 99 mL/min >60 [facility] Comment on above: GFR Calc Estimated GFR (MDRD) Non-Af Amer 82 mL/min >60 [facility] Comment on above: Non- GFR Calc Thyroid Stimulating Hormone (TSH) 1.87 uIU/mL 0.358-3.74 [facility] Platelets bldOrdered By: Juan Carlos Almanza on 07-07-2022 Platelets (Bld) [#/Vol] 183 10*3/uL 150-450 [facility] Serum or plasma calcium cordelia urement (mass/volume)Ordered By: Tabatha Almanza on 07-07-2022 Calcium [Mass/Vol] 8.7 mg/dL 8.5-10.[address] [facility] Serum or plasma creatinine m easurement (mass/volume)Ordered By: Tabatha Almanza on 07-07-2022 Creatinine [Mass/Vol] 0.97 mg/dL 0.70-1.30 [facility] Comment on above: The validity of the calculated GFR & GFRAA in patients over 70 years has not been determined. Clinical correlation is essential. Serum or plasma urea nitroge n measurement (mass/volume)Ordered By: Tabatha Almanza on 07-07-2022 Urea nitrogen [Mass/Vol] 12 mg/dL 7-18 [facility] Thin prep Papanicolaou smear with manual screeningOrdered By: Tabatha Almanza on 07-07-2022 Thin prep Papanicolaou smear with manual screening 5 5-15 [facility] Whole blood hemoglobin A1c/t otal hemoglobin ratio (mass fraction)Ordered By: Tabatha Almanza on 07-07-2022 HbA1c (Bld) [Mass fraction] 5.9 % 3.8-5.6 [facility] Comment on above: Normal < 5.7 % Predi abetic 5.7 - 6.4 % Diabetic >or= 6.5 % Please note range changes. Basophil percentageOrdered B y: Dr. Staton on 07-03-2022 Bilirubin [Mass/Vol] 0.60 mg/dL 0.20-1.00 [facility] Comment on above: For patients on eltr ombopag therapy, use of Dimension [place] TBIL is not recommended. Cholesterol [Mass/Vol] 149 mg/dL <200 [facility] Comment on above: <200 mg/dL Desirable 200-240 mg/dL Borderline >240 mg/dL High Risk Protein [Mass/Vol] 6.7 g/dL 6.4-8.[address] [facility] Triglyceride [Mass/Vol] 199 mg/dL <199 [facility] Comment on above: The drugs N-Acetylcy steine and Metamizole may falsely depress this assay.Serum Triglycerides Reference Interval Normal <150 mg/dL Borderline high 150 - 199 mg/dL High 200 - 499 mg/dL Very High > or = 500 mg/dL Direct bilirubinOrdered By: Dr. Staton on 07-03-2022 Bilirubin.direct [Mass/Vol] 0.07 mg/dL 0.00-0.30 [facility] - Chemistry and C hemistry - challengeOrdered By: Dr. Staton on 07-03-2022 ALP [Catalytic activity/Vol] 58 U/L 45-117 [facility] ALT [Catalytic activity/Vol] 31 U/L 16-61 [facility] Globulin (S) [Mass/Vol] 3.1 g/dL 2.2-4.2 [facility] Serum or plasma albumin cordelia urement (mass/volume)Ordered By: Dr. Staton on 07-03-2022 Albumin [Mass/Vol] 3.6 g/dL 3.2-5.[address] [facility] Serum or plasma cholesterol in HDL measurement (mass/volume)Ordered By: Dr. Staton on 07-03-2022 Cholesterol in HDL [Mass/Vol] 34 mg/dL >40 [facility] Comment on above: The drugs N-Acetylcy steine and Metamizole may falsely depress this assay. Reference Range HDL <40 mg/dL Low HDL Cholesterol HDL >or= 60 mg/dL High HDL Cholesterol Serum or plasma cholesterol in VLDL measurement (mass/volume)Ordered By: Dr. Staton on 07-03-2022 Cholesterol in VLDL [Mass/Vol] 40 mg/dL 5-40 [facility] Serum or plasma low density lipoprotein (LDL) cholesterol measurement (mass/volume)Ordered By: Dr. Staton on 07-03-2022 Cholesterol in LDL [Mass/Vol] 75 mg/dL 0-130 [facility] Thin prep Papanicolaou smear with manual screeningOrdered By: Dr. Staton on 07-03-2022 Thin prep Papanicolaou smear with manual screening 27 U/L 15-37 [facility] Comment on above: Moderate Hemolysis, Result may be falsely increased. Basophil percentageon 2021 Bilirubin [Mass/Vol] 0.40 mg/dL 0.20-1.00 [facility] Work Phone: Comment on above: For patients on eltr ombopag therapy, use of Dimension [place] TBIL is not recommended. Cholesterol [Mass/Vol] 130 mg/dL <200 [facility] Work Phone: Comment on above: <200 mg/dL Desirable 200-240 mg/dL Borderline >240 mg/dL High Risk Protein [Mass/Vol] 6.6 g/dL 6.4-8.[address] [facility] Work Phone: Triglyceride [Mass/Vol] 127 mg/dL [facility] Work Phone: Comment on above: The drugs N-Acetylcy steine and Metamizole may falsely depress this assay.Serum Triglycerides Reference Interval Normal <150 mg/dL Borderline high 150 - 199 mg/dL High 200 - 499 mg/dL Very High > or = 500 mg/dL Direct bilirubinon Bilirubin.direct [Mass/Vol] 0.10 mg/dL 0.00-0.30 [facility] Work Phone: Laboratory - Chemistry and C hemistry - challengeon 09-16-2021 ALP [Catalytic activity/Vol] 57 U/L 45-117 [facility] Work Phone: ALT [Catalytic activity/Vol] 32 U/L 16-61 [facility] Work Phone: Globulin (S) [Mass/Vol] 3.1 g/dL 2.2-4.2 [facility] Work Phone: Serum or plasma albumin cordelia urement (mass/volume)on 09-16-2021 Albumin [Mass/Vol] 3.5 g/dL 3.2-5.[address] [facility] Work Phone: Serum or plasma cholesterol in HDL measurement (mass/volume)on 09-16-2021 Cholesterol in HDL [Mass/Vol] 38 mg/dL [facility] Work Phone: Comment on above: The drugs N-Acetylcy steine and Metamizole may falsely depress this assay. Reference Range HDL <40 mg/dL Low HDL Cholesterol HDL >or= 60 mg/dL High HDL Cholesterol Serum or plasma cholesterol in VLDL measurement (mass/volume)on 09-16-2021 Cholesterol in VLDL [Mass/Vol] 25 mg/dL 5-40 [facility] Work Phone: Serum or plasma low density lipoprotein (LDL) cholesterol measurement (mass/volume)on 09-16-2021 Cholesterol in LDL [Mass/Vol] 67 mg/dL 0-130 [facility] Work Phone: Thin prep Papanicolaou smear with manual screeningon 09-16-2021 Thin prep Papanicolaou smear with manual screening 18 U/L 15-37 [facility] Work Phone: CBC AND ELECTRONIC DIFFon Basophils (Bld) [#/Vol] 0.04 10*3/uL Normal 0.00-0.09 [facility] Comment on above: Performed By: #### L [id number] #### [facility] (DEFAULT) [address] [place] [address] Basophils/100 WBC (Bld) 0.7 % Normal [facility] Comment on above: Performed By: #### L [id number] #### [facility] (DEFAULT) [address] [place] [address] DIFF STATUS Electronic Differential Normal [facility] Comment on above: Performed By: #### L [id number] #### [facility] (DEFAULT) [address] [place] [address] Eosinophils (Bld) [#/Vol] 0.14 10*3/uL Normal 0.00-0.48 [facility] Comment on above: Performed By: #### L [id number] #### [facility] (DEFAULT) [address] [place] [address] Eosinophils/100 WBC (Bld) 2.5 % Normal [facility] Comment on above: Performed By: #### L [id number] #### [facility] (DEFAULT) [address] [place] [address] Hematocrit (Bld) [Volume fraction] 40.4 % Normal 39.6-48.8 [facility] Comment on above: Performed By: #### L [id number] #### [facility] (DEFAULT) [address] [place] [address] Hemoglobin (Bld) [Mass/Vol] 13.5 g/dL Normal 13.4-16.8 [facility] Comment on above: Performed By: #### L [id number] #### [facility] (DEFAULT) [address] [address] Immature Grans % 0.4 % Normal [facility] Comment on above: Performed By: #### L [id number] #### [facility] (DEFAULT) [address] [address] Immature Grans Absolute <0.04 Normal <=0.08 [facility] Comment on above: Performed By: #### L [id number] #### [facility] (DEFAULT) [address] [address] Lymphocytes (Bld) [#/Vol] 1.53 10*3/uL Normal 0.83-3.57 [facility] Comment on above: Performed By: #### L [id number] #### [facility] (DEFAULT) [address] [address] Lymphocytes/100 WBC (Bld) 27.7 % Normal [facility] Comment on above: Performed By: #### L [id number] #### [facility] (DEFAULT) [address] [address] MCV (RBC) [Entitic vol] 90.2 fL Normal 79.0-94.5 [facility] Comment on above: Performed By: #### L [id number] #### [facility] (DEFAULT) [address] [address] Mean Cell Hgb 30.1 pg Normal 26.1-33.3 [facility] Comment on above: Performed By: #### L [id number] #### [facility] (DEFAULT) [address] [address] Mean Cell Hgb Conc 33.4 g/dL Normal 31.9-36.5 [facility] Comment on above: Performed By: #### L [id number] #### [facility] (DEFAULT) [address] [address] Monocytes (Bld) [#/Vol] 0.44 10*3/uL Normal 0.24-0.93 [facility] Comment on above: Performed By: #### L [id number] #### [facility] (DEFAULT) [address] [place] [address] Monocytes/100 WBC (Bld) 8.0 % Normal [facility] Comment on above: Performed By: #### L [id number] #### [facility] (DEFAULT) [address] [place] [address] Nucleated RBC 0.0 /100 WBC Normal <=0.2 [facility] Comment on above: Performed By: #### L [id number] #### [facility] (DEFAULT) [address] [address] Platelet mean volume (Bld) [Entitic vol] 9.1 fL Normal 8.7-12.3 [facility] Comment on above: Performed By: #### L [id number] #### [facility] (DEFAULT) [address] [address] Platelets (Bld) [#/Vol] 179 10*3/uL Normal 146-337 [facility] Comment on above: Performed By: #### L [id number] #### [facility] (DEFAULT) [address] [address] RBC (Bld) [#/Vol] 4.48 10*6/uL Normal 4.38-5.83 [facility] Comment on above: Performed By: #### L [id number] #### [facility] (DEFAULT) [address] [address] RBC Distribution 13.2 % Normal 10.9-14.3 [facility] Comment on above: Performed By: #### L [id number] #### [facility] (DEFAULT) [address] [address] Segs + Bands Auto 60.7 % Normal [facility] Comment on above: Performed By: #### L [id number] #### Maikol [facility] (DEFAULT) [address] [place] [address] Segs + Bands,Absolute Auto 3.35 K/uL Normal 1.57-6.19 [facility] Comment on above: Performed By: #### L [id number] #### [facility] (DEFAULT) [address] [place] [address] WBC (Bld) [#/Vol] 5.52 10*3/uL Normal 3.73-10.10 [facility] Comment on above: Performed By: #### L [id number] #### [facility] (DEFAULT) [address] [place] [address] CHEM 7 (LYTES,BUN,CREA,GLUC) on 09-17-2020 Anion gap [Moles/Vol] 12 mmol/L Normal 7-17 [facility] Comment on above: Performed By: #### C HM7 #### [facility] (DEFAULT) [address] [place] [address] Chloride [Moles/Vol] 110 mmol/L High 98-108 [facility] Comment on above: Performed By: #### C HM7 #### [facility] (DEFAULT) [address] [place] [address] CO2 [Moles/Vol] 23 mmol/L Normal 22-30 [facility] Comment on above: Performed By: #### C HM7 #### [facility] (DEFAULT) [address] [place] [address] Creatinine [Mass/Vol] 1.08 mg/dL Normal 0.70-1.30 [facility] Comment on above: Performed By: #### C HM7 #### [facility] (DEFAULT) [address] [place] [address] EST GFR, >=60 Normal >=60 [facility] Comment on above: Performed By: #### C HM7 #### [facility] (DEFAULT) [address] [place] [address] EST GFR,Non >=60 Normal >=60 [facility] Comment on above: Performed By: #### C HM7 #### [facility] (DEFAULT) [address] [address] Glucose [Mass/Vol] 121 mg/dL High 70-99 [facility] Comment on above: Performed By: #### C HM7 #### Ma[facility] (DEFAULT) [address] [address] Osmolality [Osmolality] 298 mosm/kg Normal 278-305 [facility] Comment on above: Performed By: #### C HM7 #### [facility] (DEFAULT) [address] [address] Potassium [Moles/Vol] 3.8 mmol/L Normal 3.5-5.0 [facility] Comment on above: Performed By: #### C HM7 #### [facility] (DEFAULT) [address] [place] [address] Sodium [Moles/Vol] 141 mmol/L Normal 133-143 [facility] Comment on above: Performed By: #### C HM7 #### [facility] (DEFAULT) [address] [address] Urea nitrogen [Mass/Vol] 19 mg/dL Normal 7-22 [facility] Comment on above: Performed By: #### C HM7 #### [facility] (DEFAULT) [address] [place] [address] Urea nitrogen/Creatinine [Mass ratio] 18 mg/mg Normal [facility] Comment on above: Performed By: #### C HM7 #### [facility] (DEFAULT) [address] [address] ECHOCARDIOGRAMon 09-17-2020 Echocardiography ? Left Ventricle: Chamber size is normal. Normal wall thickness. Mild global hypokinesis. Regional wall motion is normal. Abnormal septal motion consistent with left bundle branch block. Ejection fraction is mildly reduced (45 - 50%). Diastolic function is consistent with impaired relaxation (grade I). ? Right Ventricle: Chamber size is normal. Systolic function is normal. ? No hemodynamically significant valve disease. ? Estimated right ventricular systolic pressure is 33 mmHg. ? No prior [facility] echo for comparison. Facility [facility] Patient Information Patient Name Josh Wilkerson Legal Sex Male Indication for Exam Priority: STAT Dx: History of heart failure [Z86.79 (ICD-10-CM)]; Pre-procedural cardiovascular examination [Z01.810 (ICD-10-CM)] Order Question Reason for Exam Here for ICD implant, please evaluate LVEF, procedure pending completion of study and final read Interpretation Summary ? Left Ventricle: Chamber size is normal. Normal wall thickness. Mild global hypokinesis. Regional wall motion is normal. Abnormal septal motion consistent with left bundle branch block. Ejection fraction is mildly reduced (45 - 50%). Diastolic function is consistent with impaired relaxation (grade I). ? Right Ventricle: Chamber size is normal. Systolic function is normal. ? No hemodynamically significant valve disease. ? Estimated right ventricular systolic pressure is 33 mmHg. ? No prior [facility] echo for comparison. Findings Left Ventricle Chamber size is normal. Normal wall thickness. Mild global hypokinesis. Regional wall motion is normal. Abnormal septal motion consistent with left bundle branch block. Ejection fraction is mildly reduced (45 - 50%). Diastolic function is consistent with impaired relaxation (grade I). Right Ventricle Chamber size is normal. Systolic function is normal. Left Atrium Chamber size is normal. Right Atrium Chamber size is normal. Septum The atrial septum is normal. Mitral Valve Normal appearing leaflets. Leaflet mobility is normal. No regurgitation. No valve stenosis. Aortic Valve Trileaflet valve. Cusp sclerosis visualized. Leaflet mobility is normal. Trace regurgitation. No stenosis. Tricuspid Valve Normal leaflets. Leaflet mobility is normal. Trace regurgitation. No stenosis. Estimated right ventricular systolic pressure is 33 mmHg. Pulmonic Valve Normal structure. Trace regurgitation. No stenosis. Aorta No dilation to extent seen. Pericardium No pericardial effusion. IVC/SVC The inferior vena cava structure has a diameter <21 mm and decreases >50% during inspiration. Pulmonary Artery The pulmonary artery is normal. Reading Providers Reading Role Read Date Naseem Mejía MD Echo Clymer 09/17/2020 Wall Scoring Score Index: 2.00 The left ventricular wall motion is globally hypokinetic. Left Heart Measurements LV - Systole LVIDD 5.66 cm IVS 0.86 cm LVIDS 3.73 cm PW 0.96 cm LV RWT 0.34 LV Mass Index 90 g/m2 LV EDV BP 114 mL LV ESV BP 56 mL BP EF 51 % LV stroke volume BP (ml) 58 mL LV stroke volume index BP 26.36 mL/m2 LV - Diastole MV pk E delmy 0.72 m/s MV pk A delmy 0.72 m/s E/A ratio 1 e' septal pk delmy 0.07 m/s e' lateral pk delmy 0.07 m/s Avg e' pk delmy 0.07 m/s E/e' septal ratio 10.76 E/e' lateral ratio 9.72 Avg E/e' ratio 10.24 LV - HCM AV LVOT peak gradient 5 mmHg Left Atrium LA ESV SP 4CH (MOD) 53 mL LA ESV SP 2CH (MOD) 62 mL LA ESV BP (MOD) index 26 mL/m2 Right Heart Measurements RV - 2D RV basal diam 3.9 cm RV mid diam 2.6 cm RV long diam 7.3 cm RV - Doppler TAPSE 2.67 RV S' 13 cm/s Right Atrium RA vol index 4CH (MOD) 18.64 mL/m2 EST RAP 3 mmHg RA area 4CH (MOD) 16.24 cm2 Great Vessels Aortic Root - End Diastolic Sinus 3.64 cm STJ 3.64 cm Aortic arch 2.9 cm Inferior Vena Cava IVC ostium 1.37 cm Doppler Measurements - Aortic Valve Stenosis LVOT diameter 2.05 cm LVOT area 3.3 cm2 LVOT peak delmy 1.09 m/s LVOT peak VTI 21.89 cm Stroke Volume 72 cm/mL Stroke volume index 33 Ao peak delmy 1.54 m/s Ao VTI 32.14 cm AV peak gradient 9 mmHG AV mean gradient 5 mmHg DI (VTI) 0.68 m/2 DI (Vmax) 0.71 GUZMAN (continuity Vmax) 2.33 cm2 GUZMAN index (continuity Vmax) 1.06 m/s GUZMAN (continuity VTI) 2.25 cm2 GUZMAN index (continuity VTI) 1.02 cm2/m2 LVOT stroke volume 72 cm3 LVOT stroke volume index 32.82 ml/m2 Doppler Measurements - Mitral Valve Stenosis MV pk E delmy 0.72 m/s MV pk A delmy 0.72 m/s E/A ratio 1 PISA-MS MV pk E delmy 0.72 m/s Doppler Measurements - Tricuspid Valve Stenosis IVC ostium 1.37 cm Regurgitation TR pk delmy 2.73 m/s TR pk grad 30 mmHg EST RAP 3 mmHg EST RVSP 33 mmHg Doppler Measurements - Pulmonic Valve Stenosis PV PK (more content not included)... Normal [facility] EP PROCEDURE - EPS/ABLATION/ DEVICEon 09-17-2020 EP PROCEDURE - EPS/ABLATION/DEVICE ? Successful BIV PPM implant via left prepectoral approach. ? Good sensing and capture thresholds observed. Initial attempt at more distal LV lead location resulted in higher thresholds and phrenic stimulation. ? Normal BIV PPM function post-implant. Recommendations: 1. Chest xray. 2. Routine post-op wound care. 3. Follow-up with Dr Simba Staton routinely. Josh Wilkerson EP Procedure - EPS/Ablation/Device Ordering Physician: POONAM JOSEPH Order #: [id number] Study Date: 09/17/2020 Patient Information Name MRN Description Josh Meltonkhushbu [id number] y.o. 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 Successful BIV PPM implant via left prepectoral approach. ? Good sensing and capture thresholds observed. Initial attempt at more distal LV lead location resulted in higher thresholds and phrenic stimulation. ? Normal BIV PPM function post-implant. Recommendations: 1. Chest xray. 2. Routine post-op wound care. 3. Follow-up with Dr Simba Staton routinely. Consent The procedure was explained including the potential risks of infection, heart perforation, re-operation, and other risks pertinent to procedure. Informed consent and permission to proceed was given. Site Preparation On the day of the procedure, the patient was brought to the operating room and the left chest prepped with chloraprep. Site prepped by Javier Gore. The patient was draped in the usual sterile manner. Site prepped by RT. Antione ` Device Technique Generator pocket made and opened. After local anesthesia was infiltrated in the left axillary line and pre-pectoral (above fascia) region, an incision was made to accommodate the size of the hardware. This portion of the procedure was performed using blunt dissection, electrocautery and sharp dissection. Legs were elevated during venous entry access. The venous system was accessed using a single axillary vein stick (Seldinger). Legs were elevated during venous entry access. The venous system was accessed using a single axillary vein stick (Seldinger). Legs were elevated during venous entry access. The venous system was accessed using a single axillary vein stick (Seldinger). A new lead was placed into the RV septum. The insertion technique used the following: KIT INTRODUCER 14CM 6FR 18GA PEEL-AWAY DI-LOCK 3MM .038IN and LEAD PACING 59CM ATRIAL VENTRICULAR INGEVITY+ EXTENDABLE Tested the right ventricular lead. Injury current checked: Yes. Langberg maneuver performed: No Movement of leads with inspiration: Yes. A new lead was placed into the right atrial appendage. The insertion technique used the following: KIT INTRODUCER 14CM 6FR 18GA PEEL-AWAY DI-LOCK 3MM .038IN and LEAD PACING 52CM ATRIAL VENTRICULAR INGEVITY+ EXTENDABLE Tested the atrial lead. Injury current checked: Yes. Langberg maneuver performed: Yes. Movement of leads with inspiration: Yes. A new lead was placed into the lateral cardiac vein. The insertion technique used the following: SHEATH 9FR .118IN 13CM PRELUDE SNAP ROBUST VALVE SPLITTABLE, CATHETER GUIDING 9FR STRAIGHT 45CM ATTAIN COMMAND SUREVALVE, CATH RP DIAG POLARIS X BSC, CATHETER BALLOON OCCLUSION 6FR 90CM STERILE LATEX FREE, CATHETER GUIDING 7.1FR 90D 57CM ATTAIN SELECT II SUREVALVE and GUIDEWIRE ACUITY WHISPER VIEW .014IN 190CM CS J CURVE Tested the left ventricular lead. Injury current checked: No Langberg maneuver performed: No Movement of leads with inspiration: No Sutured the atrial lead. Suture used: two 2-0 Nurolon Sutured the right ventricular lead. Suture used: two 2-0 Nurolon Sutured the left ventricular lead. Suture used: two 2-0 Nurolon Sutured the generator. Suture used: single 2-0 Nurolon The wound was irrigated copiously with 0.9% Normal Saline. It was then checked for hemostasis and foreign bodies. Closure used: Vicryl 2-0 and Stratafix 4-0 Drain/Packing: none Dressing: Aquacel Specimens: none Wound Classification: Clean [Class I] Estimated Blood Loss: 10 ml Venogram A venogram was performed on the left subclavian. Injected with hand injection. Injected volume = 10 mL. A venogram was performed on the coronary sinus. Injected with hand injection. Venogram performed via catheter. ` Implants Pacemaker Manager Entry-P Valitudex4 Is-1 Is - [id number] - Implanted Inventory item: CAMP COORDINATOR-P VALITUDEX4 IS-1 IS Model/Cat nu (more content not included)... Normal [facility] PT,INR,PTTon 09-17-2020 aPTT Coag (Bld) [Time] 26.9 s Normal 24.0-34.3 [facility] Comment on above: Performed By: #### P TPTT #### [facility] (DEFAULT) [address] [place] [id number] INR Coag (PPP) [Relative time] 0.9 {INR} Normal 0.9-1.1 [facility] Comment on above: Performed By: #### P TPTT #### [facility] (DEFAULT) [address] [place] [id number] PT Coag (PPP) [Time] 12.3 s Normal 11.9-14.2 [facility] Comment on above: Performed By: #### P TPTT #### [facility] (DEFAULT) [address] [place] [id number] XR CHEST PA AND LATERALon XR CHEST PA AND LATERAL ADDENDUM #1 IMPRESSION: No pneumothorax or other complication status post pacemaker placement. ORIGINAL REPORT EXAM: XR CHEST PA AND LATERAL, 09/17/2020 14:38 PM COMPARISON: No prior studies available for comparison. CLINICAL INDICATIONS: Evaluate for pneumothorax following device implantation FINDINGS: (Compromised by low lung volumes) Implanted Devices: Left-sided 3-lead pacemaker. Lungs: Clear, without mass, interstitial disease, or consolidation. Pleural Spaces: No pleural effusion. No pneumothorax. Mediastinum and Anisa: Normal Cardiac silhouette and great vessels: Normal heart size. Unremarkable aorta. Chest Wall: Normal IMPRESSION: No pneumothorax or other complication status post chest tube placement. Normal [facility] Clinical Summary: HMSPatient IDon 01-24-2019 OOP [facility] Work Phone: Office Visit: New - 1st visi t with practice, Rm: 10on 01-24-2019 NEGATED: Highlighted rowTobacco smoking status [facility] Tobacco smoking status [facility] Work Phone: Vital Signs Date Time Vital Sign Value Performing Clinician Facility 10-31-2024 07:39-0400 Body height 167.[address] Shayan Hoskins MD Work Phone: [facility] 10-31-2024 07:39-0400 Body mass index (BMI) [Ratio] 40.3 kg/m2 Dr. Shayan Hoskins MD Work Phone: [facility] 10-31-2024 07:39-0400 Body weight 113.[address] Shayan Hoskins MD Work Phone: [facility] 10-31-2024 07:39-0400 Diastolic blood pressure 86 mm[Hg] Dr. Shayan Hoskins MD Work Phone: [facility] 10-31-2024 07:39-0400 Heart rate 74 /min Dr. Shayan Hoskins MD Work Phone: [facility] 10-31-2024 07:39-0400 Respiratory rate 18 /min Dr. Shayan Hoskins MD Work Phone: [facility] 10-31-2024 07:39-0400 SaO2% (BldA) [Mass fraction] 96 % Dr. Shayan Hoskins MD Work Phone: [facility] 10-31-2024 07:39-0400 Systolic blood pressure 121 mm[Hg] Dr. Shayan Hoskins MD Work Phone: [facility] 12-15-2023 06:49-0400 Body mass index (BMI) [Ratio] 41.01 kg/m2 Veronique Vasquez GENERAL TELLER.[employer]ER SHOP SUPERVISOR Work Phone: [facility] 12-15-2023 06:49-0400 Body weight 113 kg Veronique Vasquez GENERAL TELLER.[employer]ER [employer]OP SUPERVISOR Work Phone: [facility] 12-15-2023 06:49-0400 Diastolic blood pressure 70 mm[Hg] Veronique Worthyhof GENERAL TELLER.[employer]ER [employer]OP SUPERVISOR Work Phone: [facility] 12-15-2023 06:49-0400 Heart rate 80 /min Veronique Worthyhof GENERAL TELLER.[employer]ER [employer]OP SUPERVISOR Work Phone: [facility] 12-15-2023 06:49-0400 Respiratory rate 16 /min Veronique Worthyhof GENERAL TELLER.[employer]ER [employer]OP SUPERVISOR Work Phone: [facility] 12-15-2023 06:49-0400 SaO2% (BldA) [Mass fraction] 96 % Veronique Elizabethf GENERAL TELLER.[employer]ER [employer]OP SUPERVISOR Work Phone: [facility] 12-15-2023 06:49-0400 Systolic blood pressure 100 mm[Hg] Veronique Worthyhof GENERAL TELLER.[employer]ER [employer]OP SUPERVISOR Work Phone: [facility] 04-06-2023 08:08-0500 Body height 167.[address] Shayan Hoskins Work Phone: [facility] 04-06-2023 08:08-0500 Body mass index (BMI) [Ratio] 40 kg/m2 Dr. Shayan Hoskins Work Phone: [facility] 04-06-2023 08:08-0500 Body weight 112.[address] Shayan Hoskins Work Phone: [facility] 04-06-2023 08:08-0500 Diastolic blood pressure 76 mm[Hg] Dr. Shayan Hoskins Work Phone: [facility] 04-06-2023 08:08-0500 Heart rate 68 /min Dr. Shayan Hoskins Work Phone: [facility] 04-06-2023 08:08-0500 Respiratory rate 20 /min Dr. Shayan Hoskins Work Phone: [facility] 04-06-2023 08:08-0500 SaO2% (BldA) [Mass fraction] 97 % Dr. Shayan Hoskins Work Phone: [facility] 04-06-2023 08:08-0500 Systolic blood pressure 110 mm[Hg] Dr. Shayan oHskins Work Phone: [facility] 07-31-2022 13:28-0400 Body height 166 cm Pulm Wstr Work Phone: [facility] 07-31-2022 13:28-0400 Body weight 116.57 kg Pulm Wstr Work Phone: [facility] 07-31-2022 13:28-0400 Heart rate 84 /min Pulm Wstr Work Phone: [facility] 07-31-2022 13:28-0400 Respiratory rate 16 /min Pulm Wstr Work Phone: [facility] 07-31-2022 13:28-0400 SaO2% (BldA) [Mass fraction] 98 % Pulm Wstr Work Phone: [facility] 07-28-2022 06:57-0400 Body height 167 cm Pranav Garcia APRN.[employer]ER [employer]OP SUPERVISOR Work Phone: [facility] 07-28-2022 06:57-0400 Body temperature 97.9 [degF] Pranav René GENERAL TELLER.METER [employer]OP SUPERVISOR Work Phone: [facility] 07-28-2022 06:57-0400 Body weight 115.67 kg Pranav René GENERAL TELLER.METER SHOP SUPERVISOR Work Phone: [facility] 07-28-2022 06:57-0400 Diastolic blood pressure 74 mm[Hg] Pranav René GENERAL TELLER.METER SHOP SUPERVISOR Work Phone: [facility] 07-28-2022 06:57-0400 Heart rate 79 /min Pranav René GENERAL TELLER.METER SHOP SUPERVISOR Work Phone: [facility] 07-28-2022 06:57-0400 Respiratory rate 16 /min Pranav René GENERAL TELLER.METER [employer]OP SUPERVISOR Work Phone: [facility] 07-28-2022 06:57-0400 SaO2% (BldA) [Mass fraction] 97 % Pranav René GENERAL TELLER.METER SHOP SUPERVISOR Work Phone: [facility] 07-28-2022 06:57-0400 Systolic blood pressure 109 mm[Hg] Pranav René GENERAL TELLER.METER SHOP SUPERVISOR Work Phone: [facility] 07-07-2022 08:31-0500 Body height 167.[address] Shayan Hoskins Work Phone: [facility] 07-07-2022 08:26-0500 Body mass index (BMI) [Ratio] 41.4 kg/m2 Dr. Shayan Hoskins Work Phone: [facility] 07-07-2022 08:26-0500 Body weight 116.[address] Shayan Hoskins Work Phone: [facility] 07-07-2022 08:26-0500 Diastolic blood pressure 65 mm[Hg] Dr. Shayan Hoskins Work Phone: [facility] 07-07-2022 08:26-0500 Heart rate 79 /min Dr. Shayan Hoskins Work Phone: [facility] 07-07-2022 08:26-0500 Respiratory rate 20 /min Dr. Shayan Hoskins Work Phone: [facility] 07-07-2022 08:26-0500 SaO2% (BldA) [Mass fraction] 97 % Dr. Shayan Hoskins Work Phone: [facility] 07-07-2022 08:26-0500 Systolic blood pressure 108 mm[Hg] Dr. Shayan Hoskins Work Phone: [facility] NEGATED: Highlighted [id number] 07:41-0400 BMI (Body Mass Index) 40.82 kg/m2 [facility] Work Phone: NEGATED: Highlighted [id number] 07:41-0400 Body weight 114.31 kg [facility] Work Phone: NEGATED: Highlighted [id number] 07:41-0400 Body weight 115 kg [facility] Work Phone: NEGATED: Highlighted [id number] 07:41-0400 BP Diastolic 78 mm[Hg] [facility] Work Phone: NEGATED: Highlighted [id number] 07:41-0400 BP Systolic 119 mm[Hg] [facility] Work Phone: NEGATED: Highlighted [id number] 07:41-0400 Height 167.64 cm [facility] Work Phone: NEGATED: Highlighted [id number] 07:41-0400 Height 168 cm [facility] Work Phone: NEGATED: Highlighted [id number] 07:41-0400 Pulse (Heart Rate) 78 /min [facility] Work Phone: Encounters Encounter Date Encounter Type Care Provider Facility Start: 11-29-2024 ambulatory Sivakumar Faulkner Facility :[facility] Start: 10-31-2024 End: 10-31-2024 Patient encounter procedure Sivakumar NAVARRO -[facility] Work Phone: Start: 10-31-2024 End: 10-31-[address] Shayan Hoskins MD Work Phone: [facility] Start: 10-26-2024 End: 11-01-2024 Telephone encounter Shayan Hoskins MD Work Phone: [facility] Comment on above: Orders Start: 09-16-2024 End: 09-16-[address] Shayan Hoskins MD Work Phone: [facility] Work Phone: Start: 09-16-2024 End: 09-16-[address] Aashish Mathews MD -[facility] Work Phone: Start: 08-12-2024 End: 08-15-2024 Telephone encounter Shayan Hoskins MD Work Phone: [facility] Comment on above: requesting medicatio n that is Start: 06-17-2024 End: 06-17-2024 ambulatory Aashish Bisi Facility:[facility] Start: 05-23-2024 End: 05-23-2024 ambulatory Tazewell Bisi Facility:[facility] Start: 05-16-2024 End: 05-16-2024 Refill Shayan Hoskins MD Work Phone: [facility] Comment on above: Refill Request Start: 03-18-2024 End: 03-18-2024 ambulatory Aashish Bisi Facility:[facility] Start: 03-15-2024 ambulatory Aashish Bisi Facility:[facility] Start: 03-15-2024 End: 03-15-2024 [facility] Start: 12-18-2023 End: 12-18-2023 ambulatory [facility] Facility:[facility] Start: 12-16-2023 Telephone encounter Veronique gaffney GENERAL TELLER.METER SHOP SUPERVISOR Work Phone: [facility] Comment on above: Results (Labs ) Start: 12-15-2023 End: 12-15-2023 Patient encounter procedure Veronique Worthyjeffreykia [employer]ER [employer] SUPERVISOR Work Phone: [facility] Comment on above: Pre-diabetes (Primar y Dx); Primary hypertension; Coronary artery disease without angina pectoris, unspecified vessel or lesion type, unspecified whether [place] or transplanted heart; Hyperlipidemia, mixed; QUEENIE (obstructive sleep apnea); Seasonal allergies; Screening for depression; Encounter for screening examination for other mental health and behavioral disorders Start: 12-15-2023 End: 12-15-2023 ambulatory SHAYAN HOSKINS Facility:[facility] Start: 04-06-2023 End: 04-06-[address] Shayan Hoskins Work Phone: [facility] Work Phone: Start: 04-01-2023 End: 04-01-[address] Shayan Hoskins Work Phone: [facility] Work Phone: Start: 04-01-2023 End: 04-01-[address] Shayan Hosikns Work Phone: [facility] Work Phone: Start: 12-19-2022 End: 02-23-[address] Shayan Hoskins Work Phone: [facility] Work Phone: Start: 08-01-2022 Telephone encounter Shayan alexis MD Work Phone: [facility] Comment on above: Results Start: 07-31-2022 End: 07-31-2022 ambulatory [facility] Work Phone: [facility] Comment on above: Spirometry Start: 07-31-2022 End: 07-31-2022 Patient encounter procedure [facility] Work Phone: [facility] Start: 07-28-2022 End: 07-28-2022 Office outpatient visit 25 minutes Pranav Garcia APRN.METER SHOP SUPERVISOR Work Phone: [facility] Comment on above: SETH (dyspnea on exer tion) (Primary Dx); Hyperlipidemia, mixed; Coronary artery disease without angina pectoris, unspecified vessel or lesion type, unspecified whether [place] or transplanted heart; QUEENIE (obstructive sleep apnea); Primary hypertension; Pre-diabetes; Encounter for immunization Start: 07-18-2022 Refill Veronique Vasquez APRN.METER SHOP SUPERVISOR Work Phone: [facility] Comment on above: Refill Request Start: 07-15-2022 Non-patient / Non-visit Dr. Wolf Hoskins Work Phone: [facility] Start: 07-15-2022 End: 07-15-[address] Shayan Hoskins Work Phone: [facility] Work Phone: Start: 07-15-2022 End: 07-15-[address] Shayan Hoskins Work Phone: [facility] Start: 07-07-2022 End: 07-07-[address] Shayan Hoskins Work Phone: [facility] Work Phone: Start: 07-07-2022 End: 07-07-[address] Shayan Hoskins Work Phone: [facility] Start: 07-03-2022 End: 07-03-[address] Shayan Hoskins Work Phone: [facility] Work Phone: Start: 07-03-2022 End: 07-03-[address] Shayan Hoskins Work Phone: [facility] Start: 06-04-2022 End: 06-04-[address] Shayan Hoskins Work Phone: [facility] Start: 05-28-2022 Refill Shayan roca MD Work Phone: [facility] Comment on above: Refill Request Start: 05-27-2022 Refill Veronique Vasquez APRN.METER SHOP SUPERVISOR Work Phone: [facility] Comment on above: Refill Request Start: 09-16-2021 Non-patient / Non-visit Dr. Wolf Hoskins Work Phone: [facility] Start: 09-16-2021 End: 09-16-[address] Shayan Hoskins Work Phone: [facility] Start: 09-14-2021 Refill Veronique Vasquez GENERAL TELLER.METER SHOP SUPERVISOR Work Phone: [facility] Comment on above: Refill Request Start: 08-14-2021 End: 08-14-[address] Shayan Hoskins Work Phone: [facility] Start: 09-17-2020 End: 09-17-2020 ambulatory RSA ALISA AUGOSTINI Facility:[facility] Start: 08-27-2020 ambulatory SHAYAN Dye ity:[facility] Start: 01-24-2019 End: 01-24-2019 Patient encounter procedure Naseem Escudero MD Work Phone: [facility] Work Phone: Procedures Date Procedure Procedure Detail Performing Clinician Start: 12-15-2023 Adult depression screening assessment Veronique Vasquez APRN.[employer]ER SHOP SUPERVISOR Work Phone: Start: 12-15-2023 Lipid 1996 panel - S maikol or Plasma Veronique Vasquez APRN.[employer]ER SHOP SUPERVISOR Work Phone: Start: 07-31-2022 Brncdilat rspse spmt ry pre&post-brncdilat admn Pranav Garcia GENERAL TELLER.METER SHOP SUPERVISOR Work Phone: Start: 03-08-2021 Lipid 1996 panel - S maikol or Plasma Veronique Christina GENERAL TELLER.METER SHOP SUPERVISOR Work Phone: Start: 03-07-2021 Adult depression screening assessment Veronique Christina GENERAL TELLER.METER SHOP SUPERVISOR Work Phone: Start: 11-11-2019 Colonoscopy Veronique Haddad nhof GENERAL TELLER.METER SHOP SUPERVISOR Work Phone: Start: 01-24-2019 End: 01-24-2019 Blood pressure within normal parameters - no follow-up required Naseem Escudero MD Work Phone: Start: 01-24-2019 End: 01-24-2019 BMI documented as above normal parameters - follow-up documented Naseem Escudero MD Work Phone: Start: 01-24-2019 End: 01-24-2019 Documentation of current medications Naseem Escudero MD Work Phone: Start: 01-24-2019 End: 01-24-2019 LYNCOS ARCH SUPP - 400 SPORT SERIES (AETREX) aNseem Escudero MD Work Phone: Start: 01-24-2019 End: 01-24-2019 Pain assessment documented as negative - follow-up not required Naseem Escudero MD Work Phone: Start: 01-24-2019 End: 01-24-2019 Tobacco non-user Naseem Escudero MD Work Phone: NEGATED: Highlighted rowStart: 01-24-2019 End: 01-24-2019 Documentation of current medications Olinda Alvaro AT Plan of Treatment Date Care Activity Detail Author Start: 06-01-2033 Urine microalbumin profile DTaP,Tdap,Td Vaccine (3 - Td or Tdap) [facility] Start: 12-14-2028 Lipid panel Lipid Screening [facility] Start: 12-14-2026 Diabetes Screening Diabetes Screenin [facility] Start: 05-25-2026 Diabetes Screening Diabetes [facility] Start: 04-22-2026 PROSTATE CANCER SCREENING DISCUSSION PROSTATE CANCER SCREENING DISCUSSION [facility] Start: 03-08-2026 Lipid panel Lipid Screening [facility] Start: 03-08-2026 LIPID SCREEN LIPID SCREEN [facility] Start: 01-02-2025 Influenza vaccination Influenza Vacc ine (#1) [facility] Start: 12-14-2024 Annual PCP Team Harpsichord Maker niya Disease Visit Annual PCP Team Chronic Disease Visit [facility] Start: 12-14-2024 Anxiety Screening Anxiety Screening [facility] Start: 12-14-2024 BP Controlled (<130/80) BP Controlle d (<130/80) [facility] Start: 12-14-2024 Depression Screening Depression Scre ening [facility] Start: 12-14-2024 Hepatitis B surface antibody level LDL Cholesterol [facility] Start: 12-05-2024 End: 03-06-2025 CBC panel - Blood by Automated count COMPLETE BLOOD COUNT Lab Routine Coronary artery disease without angina pectoris, unspecified vessel or lesion type, unspecified whether [place] or transplanted heart Primary hypertension Expected: 12/05/2024 (Approximate), Expires: 03/06/2025 [facility] Comment on above: Expected: 12/05/2024 (Approximate), Expires: 03/06/2025 Start: 12-05-2024 End: 03-06-2025 Comprehensive metabolic 2000 panel - Serum or Plasma COMPREHENSIVE METABOLIC PANEL Lab Routine Coronary artery disease without angina pectoris, unspecified vessel or lesion type, unspecified whether [place] or transplanted heart Hyperlipidemia, mixed Primary hypertension Pre-diabetes Expected: 12/05/2024 (Approximate), Expires: 03/06/2025 [facility] Work Phone: Comment on above: Expected: 12/05/2024 (Approximate), Expires: 03/06/2025 Start: 12-05-2024 End: 03-06-2025 Hemoglobin A1c in Blood HEMOGLOBIN A1C Lab Routine Pre-diabetes Expected: 12/05/2024 (Approximate), Expires: 03/06/2025 [facility] Comment on above: Expected: 12/05/2024 (Approximate), Expires: 03/06/2025 Start: 12-05-2024 End: 03-06-2025 Lipid 1996 panel - Serum or Plasma LIPID PANEL, FASTING Lab Routine Coronary artery disease without angina pectoris, unspecified vessel or lesion type, unspecified whether [place] or transplanted heart Hyperlipidemia, mixed Primary hypertension Pre-diabetes Expected: 12/05/2024 (Approximate), Expires: 03/06/2025 [facility] Comment on above: Expected: 12/05/2024 (Approximate), Expires: 03/06/2025 Start: 12-05-2024 End: 12-05-2024 Patient encounter procedure 12/05/2024 7:00 AM EDT Office Visit [facility] [place] [address] [facility] [place] [address] Pranav Garcia, GENERAL TELLER.METER SHOP SUPERVISOR [address] [facility] [place] [address] physical [facility] Comment on above: physical Start: 11-10-2024 Colonoscopy COLONOSCOPY [facility] Start: 11-10-2024 COLORECTAL CANCER SCREENING COLORECTAL CANCER SCREENING [facility] Start: 11-10-2024 Screening for malign ant neoplasm of colon [facility] Start: 06-22-2024 End: 06-22-2024 Patient encounter procedure 06/22/2024 7:00 AM EST Office Visit [facility] Vivienne Kirkland [address] [facility] [place] [address] Veronique Vasquez, GENERAL TELLER.METER SHOP SUPERVISOR [address] [facility] [place] [address] 6 month follow up [facility] [place] Comment on above: 6 month follow up Start: 06-10-2024 End: 09-09-2024 Comprehensive metabolic 2000 panel - Serum or Plasma COMPREHENSIVE METABOLIC PANEL Lab Routine Coronary artery disease without angina pectoris, unspecified vessel or lesion type, unspecified whether [place] or transplanted heart Hyperlipidemia, mixed Expected: 06/10/2024, Expires: 09/09/2024 [facility] Work Phone: Comment on above: Expected: 06/10/2024 , Expires: 09/09/2024 Start: 06-10-2024 End: 09-09-2024 Hemoglobin A1c in Blood HEMOGLOBIN A1C Lab Routine Pre-diabetes Expected: 06/10/2024, Expires: 09/09/2024 [facility] Comment on above: Expected: 06/10/2024 , Expires: 09/09/2024 Start: 06-10-2024 End: 09-09-2024 Lipid 1996 panel - Serum or Plasma LIPID PANEL BASIC Lab Routine Coronary artery disease without angina pectoris, unspecified vessel or lesion type, unspecified whether [place] or transplanted heart Hyperlipidemia, mixed Expected: 06/10/2024, Expires: 09/09/2024 [facility] Comment on above: Expected: 06/10/2024 , Expires: 09/09/2024 Start: 05-04-2024 Advance Directive Discussion Advance Directive Discussion [facility] Start: 05-04-2024 Medicare Advantage Annual Wellness Visit Medicare Advantage Annual Wellness Visit [facility] Start: 03-08-2024 DIABETES SCREEN DIABETES SCREEN [facility] Start: 01-03-2024 Covid-19 Vaccine () Covid-19 Vaccine () [facility] Start: 01-03-2024 Influenza vaccination Influenza Vacc ine (#1) [facility] Start: 07-29-2023 ANNUAL PCP TEAM CHIEF ENTERPRISE ARCHITECT NIYA DISEASE VISIT ANNUAL PCP TEAM CHRONIC DISEASE VISIT [facility] Start: 07-29-2023 BP CONTROLLED (<130/80) BP CONTROLLE D (<130/80) [facility] Start: 07-29-2023 COVID-19 VACCINE (4 - Booster for Pfizer series) COVID-19 VACCINE (4 - Booster for Pfizer series) [facility] Comment on above: Postponed from 05/12 (Declined at this time) Start: 07-08-2023 Hepatitis B surface antibody level LDL CHOLESTEROL [facility] Start: 01-02-2023 Covid-19 Vaccine () Covid-19 Vaccine () [facility] Start: 11-17-2022 Urine microalbumin profile DTAP,TDAP,TD (2 - Td or Tdap) [facility] Start: 10-31-2022 Influenza vaccination INFLUENZA (#1) [facility] Comment on above: Postponed from 01/02 (Declined at this time) Start: 05-04-2022 ADVANCE DIRECTIVE DISCUSSION ADVANCE DIRECTIVE DISCUSSION [facility] Start: 05-04-2022 DEPRESSION ASSESSMENT DEPRESSION ASS ESSMENT [facility] Start: 04-30-2022 BP CONTROLLED (<130/80) BP CONTROLLE D (<130/80) [facility] Start: 04-22-2022 ANNUAL PCP TEAM CHIEF ENTERPRISE ARCHITECT NIYA DISEASE VISIT ANNUAL PCP TEAM CHRONIC DISEASE VISIT [facility] Start: 03-08-2022 Hepatitis B surface antibody level LDL CHOLESTEROL [facility] Start: 03-07-2022 Adult depression screening assessment DEPRESSION SCREENING [facility] Start: 01-02-2022 Influenza vaccination INFLUENZA (#1) [facility] Start: 07-15-2021 COVID-19 VACCINE (4 - Booster for Pfizer series) COVID-19 VACCINE (4 - Booster for Pfizer series) [facility] Start: 05-12-2021 COVID-19 VACCINE (4 - Booster for Pfizer series) COVID-19 VACCINE (4 - Booster for Pfizer series) [facility] Start: 05-04-2021 ADVANCE DIRECTIVE DISCUSSION ADVANCE DIRECTIVE DISCUSSION [facility] Start: 09-07-2019 PNEUMOCOCCAL: 65+ (1 - PCV) PNEUMOCOCCAL: 65+ (1 - PCV) [facility] Start: 09-07-2019 PNEUMOVAX AGE 65 AND OVER WITH 5YR LOOKBACK (#1) PNEUMOVAX AGE 65 AND OVER WITH 5YR LOOKBACK (#1) [facility] Start: 01-24-2019 End: 01-24-2019 Appointment Appointment [facility] Work Phone: Start: 01-24-2019 End: 01-24-2019 Radex foot complete minimum 3 views XR FOOT 3+ VWS-RT [facility] Work Phone: Start: 12-22-2016 SHINGRIX VACCINE (2 of 3) SHINGRIX VACCINE (2 of 3) [facility] Start: 08-28-2016 FECAL OCCULT BLOOD FECAL OCCULT BLOO D [facility] Start: 08-28-2016 Screening for malign ant neoplasm of colon Fecal Occult Blood [facility] Start: 2014 RSV Vaccine (1 - 1-d ose 60+ series) RSV Vaccine (1 - 1-dose 60+ series) [facility] Start: 2014 RSV Vaccine (1 - Ris k 60-74 years 1-dose series) RSV Vaccine (1 - Risk 60-74 years 1-dose series) [facility] Start: 09-07-1999 COLOGUARD (FIT-DNA) COLOGUARD (FIT-D NA) [facility] Start: 09-07-[address] COLONOGRAPHY [facility] Start: 09-07-1999 Screening for malign ant neoplasm of colon [facility] Start: 09-07-1999 SIGMOIDOSCOPY SIGMOIDOSCOPY [facility] cosmo [facility] Start: 1972 BP CONTROLLED (<130/80) BP CONTROLLE D (<130/80) [facility] CBC W Auto Different ial panel - Blood [facility] Hepatic function panel [facility] Lipid 1996 panel - Serum or Plasma [facility] End: 08-27-2023 LUNG VOLUMES LUNG VOLUMES PFT Routine SETH (dyspnea on exertion) 1 Occurrences starting 07/28/2022 until 08/27/2023 [facility] Work Phone: Comment on above: 1 Occurrences starti ng 07/28/2022 until 08/27/2023 NM Heart Views W str ess and W radionuclide IV [facility] End: 08-27-2023 SPIROMETRY - BASELINE AND POST DILATOR SPIROMETRY - BASELINE AND POST DILATOR PFT Routine SETH (dyspnea on exertion) 1 Occurrences starting 07/28/2022 until 08/27/2023 [facility] Work Phone: Comment on above: 1 Occurrences starti ng 07/28/2022 until 08/27/2023 [facility] Immunizations Immunization Date Immunization Notes Care Provider Trish conti 05-25-2023 influenza (HD-IIV4) vaccine, age 65+ yr, high dose, quadrivalent, PF (FLUZONE HIGH-DOSE) Veronique Vasquez APRN.METER SHOP SUPERVISOR Work Phone: [facility] 05-25-2023 influenza virus vaccine, unspecified formulation Veronique Vasquez APRN.METER SHOP SUPERVISOR Work Phone: [facility] 07-28-2022 pneumococcal (PCV20) vaccine, 20 valent (PREVNAR 20) Pranav Garcia APRN.METER SHOP SUPERVISOR Work Phone: [facility] 07-28-2022 pneumococcal Conjuga te, unspecified formulation Pranav Garcia APRN.METER SHOP SUPERVISOR Work Phone: [facility] Work Phone: 03-07-2021 influenza, high-dose , quadrivalent vaccine (FLUZONE HIGH DOSE QUADRIVALENT) Veronique Vasquez APRN.METER SHOP SUPERVISOR Work Phone: [facility] 10-27-2016 zoster vaccine, live Veronique Vasquez APRN.METER SHOP SUPERVISOR Work Phone: [facility] 11-17-2012 tetanus toxoid, redu teresa diphtheria toxoid, and acellular pertussis vaccine, adsorbed Veronique Vasquez APRN.METER SHOP SUPERVISOR Work Phone: [facility] Payers Date Payer Category Payer Self-pay [id number] 2022 Medicare (Managed Care) [id number] 2022 Medicare [id number] 2019 Medicare MEDICARE MEDICAR E A AND B [id number] 2019-Present [phone] [address] [address] [place] [address] Medicare [id number] 2019 Medicare [id number] 2019 Medicare [id number] 2019 Unknown [id number] 2019 Unknown MMO MMO MEDICARE SUPPLEMENT [id number] 2019-Present [phone] [address] [place] [address] Indemnity [id number] 2019 Unknown MMO MMO MEDICARE SUPPLEMENT [id number] 2019-Present [phone] [address] [place] [address] Indemnity [id number] 2016 Unknown [id number] 1954 Unknown [id number] 594 1954 Unknown [id number]. 594 Unknown [id number] Unknown [id number]. 462 Unknown [id number]. 462 Unknown [id number]. 462 Unknown [id number]. 462 Unknown [id number]. 462 Unknown [id number]. 462 Unknown [id number]. 462 Unknown [id number]. 462 Unknown [id number]. 462 Unknown [id number]. 462 Unknown [id number]. 462 Unknown [id number] 462 Social History Date Type Detail Facility Start: 11-17-2012 End: 07-28-2022 Tobacco smoking status NHIS Never smoked tobacco [facility] Start: 11-17-2012 End: 07-28-2022 Tobacco use and exposure Smokeless tobacco non-user [facility] Start: 04-30-2021 End: 12-15-2023 Alcohol intake Current drinker of alcohol (finding) [facility] Start: 09-15-2016 History SDOH Alcohol Comment occcasionally [facility] Start: 1955 Sex Assigned At Not on file [facility] Start: 04-15-2021 End: 04-06-2023 Tobacco smoking status MTIS Unknown if ever smoked [facility] Start: 11-21-2016 Rare [facility] Start: 11-21-2016 None [facility] Start: 11-21-2016 Alone [facility] Start: 11-21-2016 Non-smoker [facility] Start: 1955 Sex Assigned At Male [facility] Start: 05-25-2023 End: 12-15-2023 History of Social function [facility] Start: 05-25-2023 End: 12-15-2023 Tobacco use panel [facility] Adult Depression Screening Assessment 0 [facility] NEGATED: Highlighted rowStart: 01-24-2019 End: 01-24-2019 Alcohol use Alcohol use [facility] Work Phone: NEGATED: Highlighted rowStart: 01-24-2019 End: 01-24-2019 Details of drug misuse behavior Details of drug misuse behavior [facility] Work Phone: NEGATED: Highlighted rowStart: 01-24-2019 End: 01-24-2019 Employment detail Employment detail [facility] Work Phone: NEGATED: Highlighted rowStart: 01-24-2019 End: 01-24-2019 Assertion Never smoker [facility] Work Phone: Medical Equipment Procedure Code Equipment Code Equipment Original Text Equipment Identifier Dates Screw-11/11/1999 [id number] Start: 11-11-1999 Comment on above: Description: plate & screws surgically implanted Clinical Notes 09-01-2020 to 11-01-2024 Telephone Encounter - Shayan Hoskins MD - 11/01/2024 8:15 AM EDTTelephone Encounter - Shayan Hoskins MD - 11/01/2024 8:15 AM EDTTelephone Encounter - Monika Guerra - 08/12/2024 3:55 PM EDT Note Date & Type Note Facility 11-01-2024 Telephone encounter Note Labs ordered Shayan Hoskins MD [facility] 11-01-2024 Miscellaneous Notes Labs ordered Shayan Hoskins MD Delmi from [facility] Call Center calling in and reports pt is requesting provider to place lab orders to have completed prior to his upcoming Physical on 12/05/24 with Leila Garcia CNP.. Yuli Holm RN documented in this encounter [facility] 10-26-2024 Telephone encounter Note Delmi from [facility] Call Center calling in and reports pt is requesting provider to place lab orders to have completed prior to his upcoming Physical on 12/05/24 with Leila Garcia CNP.. Yuli Holm RN [facility] 08-15-2024 Telephone encounter Note Sent The following approved medication requests have been transmitted electronically. Requested Prescriptions Signed Prescriptions Disp Refills rosuvastatin (CRESTOR) 10 mg tablet 90 tablet 3 Sig: Take 1 tablet by mouth daily at bedtime. Authorizing Provider: PRANAV GARCIA APRN.CNP [facility] 08-15-2024 Miscellaneous Notes Sent The following approved medication requests have been transmitted electronically. Requested Prescriptions Signed Prescriptions Disp Refills rosuvastatin (CRESTOR) 10 mg tablet 90 tablet 3 Sig: Take 1 tablet by mouth daily at bedtime. Authorizing Provider: PRANAV GARCIA APRN.CNP Patient requesting the following medication which has : rosuvastatin (CRESTOR) 10 mg tablet () Patient last seen 12-15-23 Future visit scheduled: no PHARMACY: [facility] documented in this encounter [facility] 08-12-2024 Telephone encounter Note Patient requesting the following medication which has : rosuvastatin (CRESTOR) 10 mg tablet () Patient last seen 12-15-23 Future visit scheduled: no [facility]ACY: [facility] 05-16-2024 Telephone encounter Note 90 days sent The following approved medication requests have been transmitted electronically. Requested Prescriptions Pending Prescriptions Disp Refills metFORMIN ER (GLUCOPHAGE XR) 500 mg 24 hr tablet 180 tablet 3 Sig: Take 1 tablet by mouth two times a day with meals. Pranav Garcia APRN.CNP [facility] 05-16-2024 Miscellaneous Notes 90 days sent The following approved medication requests have been transmitted electronically. Requested Prescriptions Pending Prescriptions Disp Refills metFORMIN ER (GLUCOPHAGE XR) 500 mg 24 hr tablet 180 tablet 3 Sig: Take 1 tablet by mouth two times a day with meals. Pranav René, GENERAL TELLER.METER SHOP SUPERVISOR Patient requesting 90 days at a time. Patient has been identified by name and date of : Yes Patient phones for refill(s): Requested Prescriptions Pending Prescriptions Disp Refills metFORMIN ER (GLUCOPHAGE XR) 500 mg 24 hr tablet 180 tablet 3 Sig: Take 1 tablet by mouth two times a day with meals. Date of last office visit in primary care: 12/15/2023 Date of next office visit in primary care: 06/22/2024 Please advise. Thank you. Yeni Schultz. documented in this encounter [facility] 05-16-2024 Telephone encounter Note Patient requesting 90 days at a time. Patient has been identified by name and date of : Yes Patient phones for refill(s): Requested Prescriptions Pending Prescriptions Disp Refills metFORMIN ER (GLUCOPHAGE XR) 500 mg 24 hr tablet 180 tablet 3 Sig: Take 1 tablet by mouth two times a day with meals. Date of last office visit in primary care: 12/15/2023 Date of next office visit in primary care: 06/22/2024 Please advise. Thank you. Yeni Schultz. [facility] 12-17-2023 Telephone encounter Note Patient returned call and went over results, notes from Veronique Vasquez DONOR PROCESSOR with understanding. [facility] 12-17-2023 Miscellaneous Notes Patient returned call and went over results, notes from Veronique Vasquez DONOR PROCESSOR with understanding. TC to pt. LM to call office, ask for triage nurse to get results. Katelin Zarate LPN Can you please call the patient and let him know that I reviewed his lab results. A1c has come down from 6.1 to 5.8. LDL cholesterol was normal but HDL cholesterol was low. I would recommend that he continue to take all medication as prescribed. Continue to work on lifestyle changes at home, decrease processed foods in the diet, increase lean protein, vegetables, and get some form of exercise. I would like to get repeat fasting labs in 6 months prior to next office visit. Please let me know if he has any questions. Thank you. Veronique Vasquez APRN.CNP documented in this encounter [facility] 12-16-2023 Telephone encounter Note TC to pt. LM to call office, ask for triage nurse to get results. Katelin Zarate LPN [facility] 12-16-2023 Telephone encounter Note Can you please call the patient and let him know that I reviewed his lab results. A1c has come down from 6.1 to 5.8. LDL cholesterol was normal but HDL cholesterol was low. I would recommend that he continue to take all medication as prescribed. Continue to work on lifestyle changes at home, decrease processed foods in the diet, increase lean protein, vegetables, and get some form of exercise. I would like to get repeat fasting labs in 6 months prior to next office visit. Please let me know if he has any questions. Thank you. Veronique Vasquez APRN.JOSE [facility] 12-15-2023 Instructions Veronique Vasquez APRN.CNP - 12/15/2023 7:04 AM EDT Get labs completed today Keep scheduled appointments with cardiology Continue to take al medication as prescribed. Continue to eat a low carb diet, increase protein, veggies, and stay active. Stay hydrated If needed may try antihistamine such as claritin, zyrtec, or bisi. Flonase nasal spray for allergy symptoms Due for eye exam Follow up in 6 months or sooner pending test results. documented in this encounter [facility] 12-15-2023 History of Presen t illness Narrative This is a 68 year old male who presents today with: Patient presents with: 6 Month Exam HISTORY OF PRESENT ILLNESS: Josh Wilkerson is a 68 year old male. Patient presents with: 6 Month Exam 6 month follow up Prediabetes: Taking metformin 500 mg BID. Watching diet, Due for A1C. Lipids: Taking Crestor 10 mg. Trying to watch diet. CAD/HTN: Following with cardiology, [facility]. Had lipids completed in Fall 2022. Taking Carvidiol 12.5 mg BID, Norvasc 2.5 mg daily, ASA 81 mg daily, Entresto 49-50 BID. QUEENIE: Using Cpap. Sleeping well, waking up refreshed. Watery eyes and runny nose, seems to wax and wane. Has tried benadryl which has been helpful. No fever or chills. PAST MEDICAL HISTORY: PAST MEDICAL HISTORY No date: CAD (coronary artery disease) No date: Detached retina No date: Hyperlipemia No date: Snoring PAST SURGICAL HISTORY 20 years ago: COLONOSCOPY 09/15/2016: COLONOSCOPY FLX DX W/COLLJ SPEC WHEN PFRMD Comment: Colonoscopy 11/11/2019: COLONOSCOPY FLX DX W/COLLJ SPEC WHEN PFRMD Comment: Colonoscopy No date: PAST SURGICAL HISTORY OF; Right Comment: fracture repair arm No date: PAST SURGICAL HISTORY OF Comment: laser surgery for detached retina ALLERGIES Patient has no known allergies. MEDICATIONS Current Outpatient Medications Medication Sig metFORMIN ER (GLUCOPHAGE XR) 500 mg 24 hr tablet Take 1 tablet by mouth two times a day with meals. rosuvastatin (CRESTOR) 10 mg tablet Take 1 tablet by mouth daily at bedtime. carvedilol (COREG) 12.5 mg tablet Take 12.5 mg by mouth twice daily with meals. sacubitril-valsartan (ENTRESTO) 49-51 mg tablet Take 1 tablet by mouth twice daily. amLODIPine (NORVASC) 2.5 mg tablet (Patient not taking: No sig reported) aspirin 81 mg chewable tablet No current facility-administered medications for this visit. FAMILY HISTORY Problem Relation Age of Onset Heart disease Mother Cancer Mother Cancer Brother colon Prostate Cancer Paternal Grandfather Social History Tobacco Use Smoking status: Never Smokeless tobacco: Never Substance Use Topics Alcohol use: Yes Comment: occcasionally Drug use: No REVIEW OF SYSTEMS GENERAL: No weight loss, malaise or fevers/chills HEENT: + Watery eyes and rhinorrhea. NECK: Negative for lumps, goiter, pain and significant neck swelling RESPIRATORY: Negative for cough, hemoptysis, wheezing, dyspnea or shortness of breath CARDIOVASCULAR: Negative for chest pain, leg swelling, orthopnea, or palpitations GI: No nausea, vomiting, or diarrhea/constipation. No hematochezia/melena. No heartburn or reflux symptoms. : No history of dysuria, frequency or incontinence MUSCULOSKELETAL: Negative for joint pain or swelling. SKIN: Negative for lesions, rash, and itching ENDOCRINE: Negative for cold or heat intolerance, polyuria, polydipsia and goiter NEURO: No history of headaches, syncope, paralysis, seizures or tremors MOOD: Negative for depression, anxiety, or suicidal ideation. EXAM: BP 100/70 Pulse 80 Resp 16 Wt 113 kg (249 lb 1.9 oz) SpO2 96% BMI 41.01 kg/m PHYSICAL EXAM: General Appearance: Well appearing, alert, in no acute distress, well-hydrated, well nourished. Skin: Skin color, texture, turgor normal, no suspicious rashes or lesions. Head: Normocephalic, no masses, lesions, tenderness or abnormalities. Eyes: Anicteric sclera. Pupils are equally round and reactive to light. Extraocular movements are intact. Ears: External ears normal, canals clear. TM's dull Neck: Supple, no adenopathy; thyroid symmetric, normal size, no bruits. Lungs: Lungs clear to auscultation. No wheezing, rhonchi, rales. Heart: RRR without murmur, gallop, or rubs. No ectopy. Extremities: No deformities, edema, skin discoloration, clubbing or cyanosis. Good capillary refill. Peripheral Pulses: Normal, Capillary refill <2secs, strong peripheral pulses, Pulses palpable. Neurologic: Gait normal. Sensation grossly intact. ASSESSMENT/PLAN: 1. Pre-diabetes - ICD9: 790.29, ICD10: R73.03 (primary diagnosis) - Get labs completed - Continue to take medication as prescribed. - Continue to work on eating a low carb diet at home. 2. Primary hypertension - ICD9: 401.9, ICD10: I10 - Controlled - Continue current medications - Recommend home blood pressure monitoring, to bring results to next visit - Encouraged sodium restriction, DASH or Mediterranean diet - Recommend regular aerobic exercise - Discussed need for and benefit of weight loss. BMI 41.01 kg/(m^2) 3. Coronary artery disease without angina pectoris, unspecified vessel or lesion type, unspecified whether [place] or transplanted heart - ICD9: 414.00, ICD10: I25.10 - Stable, continue to take current medication. - Keep scheduled appointments with Cardiology. 4. Hyperlipidemia, mixed - ICD9: 272.2, ICD10: E78.2 - Control undetermined, due for labs - Continue current medications - Counseled on healthy diet and regular exercise - Discussed need for and benefit of weight loss. BMI 41.01 kg/(m^2) 5. QUEENIE (obstructive sleep apnea) - ICD9: 327.23, ICD10: G47.33 - Stable, continue with CPAP. 6. Seasonal allergies - ICD9: 477.9, ICD10: J30.2 - May use OTC antihistamines and Flonase as needed for seasonal allergies. 7. Screening for depression - ICD9: V79.0, ICD10: Z13.31 - DEPRESSION SCREENING 8. Encounter for screening examination for other mental health and behavioral disorders - ICD9: V79.8, ICD10: Z13.39 - ANXIETY SCREENING Follow-up in 6 months or sooner pending test results. Discussed treatment plan and patient voices understanding. Patient's questions answered appropriately. Medications and potential side effects were discussed and patient voices understanding. Veronique Vasquez APRN.METER SHOP SUPERVISOR This note was partially generated using [employer] System recognition system. Note was reviewed for accuracy. There may be minor misspellings or grammar miscues with Dragon voice recognition. documented in this encounter [facility] 12-15-2023 Note HNO ID: [id number] Author: VERONIQUE VASQUEZ APRN.METER SHOP SUPERVISOR Service: ? Author Type: Nurse Practitioner Type: Progress Notes Filed: 12/15/2023 07:40 Note Text: This is a 68 year old male who presents today with: Patient presents with: 6 Month Exam HISTORY OF PRESENT ILLNESS: Josh Wilkerson is a 68 year old male. Patient presents with: 6 Month Exam 6 month follow up Prediabetes: Taking metformin 500 mg BID. Watching diet, Due for A1C. Lipids: Taking Crestor 10 mg. Trying to watch diet. CAD/HTN: Following with cardiology, [facility]. Had lipids completed in Fall 2022. Taking Carvidiol 12.5 mg BID, Norvasc 2.5 mg daily, ASA 81 mg daily, Entresto 49-50 BID. QUEENIE: Using Cpap. Sleeping well, waking up refreshed. Watery eyes and runny nose, seems to wax and wane. Has tried benadryl which has been helpful. No fever or chills. PAST MEDICAL HISTORY: PAST MEDICAL HISTORY No date: CAD (coronary artery disease) No date: Detached retina No date: Hyperlipemia No date: Snoring PAST SURGICAL HISTORY 20 years ago: COLONOSCOPY 09/15/2016: COLONOSCOPY FLX DX W/COLLJ SPEC WHEN PFRMD Comment: Colonoscopy 11/11/2019: COLONOSCOPY FLX DX W/COLLJ SPEC WHEN PFRMD Comment: Colonoscopy No date: PAST SURGICAL HISTORY OF; Right Comment: fracture repair arm No date: PAST SURGICAL HISTORY OF Comment: laser surgery for detached retina ALLERGIES Patient has no known allergies. MEDICATIONS Current Outpatient Medications Medication Sig metFORMIN ER (GLUCOPHAGE XR) 500 mg 24 hr tablet Take 1 tablet by mouth two times a day with meals. rosuvastatin (CRESTOR) 10 mg tablet Take 1 tablet by mouth daily at bedtime. carvedilol (COREG) 12.5 mg tablet Take 12.5 mg by mouth twice daily with meals. sacubitril-valsartan (ENTRESTO) 49-51 mg tablet Take 1 tablet by mouth twice daily. amLODIPine (NORVASC) 2.5 mg tablet (Patient not taking: No sig reported) aspirin 81 mg chewable tablet No current facility-administered medications for this visit. FAMILY HISTORY Problem Relation Age of Onset Heart disease Mother Cancer Mother Cancer Brother colon Prostate Cancer Paternal Grandfather Social History Tobacco Use Smoking status: Never Smokeless tobacco: Never Substance Use Topics Alcohol use: Yes Comment: occcasionally Drug use: No REVIEW OF SYSTEMS GENERAL: No weight loss, malaise or fevers/chills HEENT: + Watery eyes and rhinorrhea. NECK: Negative for lumps, goiter, pain and significant neck swelling RESPIRATORY: Negative for cough, hemoptysis, wheezing, dyspnea or shortness of breath CARDIOVASCULAR: Negative for chest pain, leg swelling, orthopnea, or palpitations GI: No nausea, vomiting, or diarrhea/constipation. No hematochezia/melena. No heartburn or reflux symptoms. : No history of dysuria, frequency or incontinence MUSCULOSKELETAL: Negative for joint pain or swelling. SKIN: Negative for lesions, rash, and itching ENDOCRINE: Negative for cold or heat intolerance, polyuria, polydipsia and goiter NEURO: No history of headaches, syncope, paralysis, seizures or tremors MOOD: Negative for depression, anxiety, or suicidal ideation. EXAM: BP 100/70 Pulse 80 Resp 16 Wt 113 kg (249 lb 1.9 oz) SpO2 96% BMI 41.01 kg/m? PHYSICAL EXAM: General Appearance: Well appearing, alert, in no acute distress, well-hydrated, well nourished. Skin: Skin color, texture, turgor normal, no suspicious rashes or lesions. Head: Normocephalic, no masses, lesions, tenderness or abnormalities. Eyes: Anicteric sclera. Pupils are equally round and reactive to light. Extraocular movements are intact. Ears: External ears normal, canals clear. TM's dull Neck: Supple, no adenopathy; thyroid symmetric, normal size, no bruits. Lungs: Lungs clear to auscultation. No wheezing, rhonchi, rales. Heart: RRR without murmur, gallop, or rubs. No ectopy. Extremities: No deformities, edema, skin discoloration, clubbing or cyanosis. Good capillary refill. Peripheral Pulses: Normal, Capillary refill <2secs, strong peripheral pulses, Pulses palpable. Neurologic: Gait normal. Sensation grossly intact. ASSESSMENT/PLAN: 1. Pre-diabetes - ICD9: 790.29, ICD10: R73.03 (primary diagnosis) - Get labs completed - Continue to take medication as prescribed. - Continue to work on eating a low carb diet at home. 2. Primary hypertension - ICD9: 401.9, ICD10: I10 - Controlled - Continue current medications - Recommend home blood pressure monitoring, to bring results to next visit - Encouraged sodium restriction, DASH or Mediterranean diet - Recommend regular aerobic exercise - Discussed need for and benefit of weight loss. BMI 41.01 kg/(m2) 3. Coronary artery disease without angina pectoris, unspecified vessel or lesion type, unspecified whether [place] or transplanted heart - ICD9: 414.00, ICD10: I25.10 - Stable, continue to take current medication. - Keep scheduled appointments wi (more content not included)... [facility] 08-01-2022 Miscellaneous Notes Pt notified and voiced understanding. Nichole Stafford Ma ----- Message from Pranav Garcia APRN.CNP sent at 07/31/2022 6:57 PM EDT ----- Please let the patient know that his pulmonary testing does not show any evidence of COPD. Does show findings consistent with restrictive lung disease that is likely secondary to his obesity. Weight loss would be the recommended treatment. Pranav Garcia CNP documented in this encounter [facility] 07-31-2022 History of Presen t illness Narrative PULM FUNCTION SMARTBLOCK: Provider: Pranav Garcia APRN.METER SHOP SUPERVISOR Assisting Tech: TWILA Hargrove Spirometry w/BD: 1 LV - Box: 1 documented in this encounter [facility] 07-28-2022 History of Presen t illness Narrative Chief Complaint Patient presents with: Physical HPI Josh Wilkerson is a 66 year old male who presents here today for Physical. Here for physical exam. Had labs completed with his cardiology office. Reviewed labs with him. Taking metformin for pre-diabetes. QUEENIE: Using CPAP nightly. Works well. Feels great benefit. Discussing that he has many years of shortness of breath. Mainly with exertion. No wheezing now, but in past has had a wheeze. Feels less stamina. No ongoing chest pain. Does feel as if it is worse than prior. BNP was normal at cardiology appointment. Non-smoker. Some smoking exposure 2nd hand. 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 Past medical history, appointments, medications, allergies reviewed. Previous Medical History PAST MEDICAL HISTORY Diagnosis Date CAD (coronary artery disease) Detached retina Hyperlipemia Snoring Previous Surgical History PAST SURGICAL HISTORY Procedure Laterality Date COLONOSCOP W/ OR W/O [facility] SPEC 09/15/2016 Colonoscopy COLONOSCOP W/ OR W/O [facility] SPEC 11/11/2019 Colonoscopy COLONOSCOPY 20 years ago PAST SURGICAL HISTORY OF Right fracture repair arm PAST SURGICAL HISTORY OF laser surgery for detached retina Family History FAMILY HISTORY Problem Relation Age of Onset Heart disease Mother Cancer Mother Cancer Brother colon Prostate Cancer Paternal Grandfather Patient Allergies ALLERGIES No Known Allergies Current Medications Current Outpatient Medications on File Prior to Visit Medication Sig metFORMIN ER (GLUCOPHAGE XR) 500 mg 24 hr tablet Take 1 tablet by mouth daily with breakfast. rosuvastatin (CRESTOR) 10 mg tablet Take 1 tablet by mouth daily at bedtime. carvedilol (COREG) 12.5 mg tablet Take 12.5 mg by mouth twice daily with meals. sacubitril-valsartan (ENTRESTO) 49-51 mg tablet Take 1 tablet by mouth twice daily. amLODIPine (NORVASC) 2.5 mg tablet (Patient not taking: Reported on 04/22/2021 ) aspirin 81 mg chewable tablet No current facility-administered medications on file prior to visit. Social History Social History Tobacco Use Smoking status: Never Smokeless tobacco: Never Substance Use Topics Alcohol use: Yes Comment: occcasionally Drug use: No REVIEW OF SYSTEMS: as above Reviewed relevant PMHx, PSHx, Social Hx, current medications and allergies. EXAM: BP 109/74 (BP Site: Left Arm) Pulse 79 Temp 36.6 C (97.9 F) (Left Tympanic) Resp 16 Ht 167 cm (5' 5.75) Wt 115.7 kg (255 lb) SpO2 97% BMI 41.47 kg/m General Appearance: Well appearing, alert, in no acute distress, well-hydrated, well nourished. and Obese. Head: Normocephalic, no masses, lesions, tenderness or abnormalities. Eyes: Anicteric sclera. Pupils are equally round and reactive to light. Extraocular movements are intact. . Ears: External ears normal, canals clear. Nose/Sinuses: Nares normal, septum midline, mucosa normal, no drainage or sinus tenderness. Oropharynx: Lips, mucosa, and tongue normal, teeth and gums normal, oropharynx normal. Neck: Supple, no adenopathy; thyroid symmetric, normal size Lungs: Lungs clear to auscultation. No wheezing, rhonchi, rales.. Heart: RRR without murmur, gallop, or rubs. No ectopy. Abdomen: Normal abdominal exam, Abdomen soft, non-tender. Bowel sounds normal. No masses, organomegaly. Extremities: No deformities, edema Lymph Nodes: No cervical lymphadenopathy and No supraclavicular lymphadenopathy. Health Maintenance List BP CONTROLLED (<130/80) Never done SHINGRIX VACCINE(2 of 3) due on 12/22/2016 PNEUMOCOCCAL: 65+(1 - PCV) Never done COVID-19 VACCINE(4 - Booster for Pfizer series) due on 05/12/2021 INFLUENZA(1) due on 01/02/2022 LDL CHOLESTEROL due on 03/08/2022 ANNUAL PCP TEAM CHRONIC DISEASE VISIT due on 04/22/2022 ADVANCE DIRECTIVE DISCUSSION Never done DEPRESSION ASSESSMENT Never done DTAP,TDAP,TD(2 - Td or Tdap) due on 11/17/2022 DIABETES SCREEN due on 03/08/2024 COLORECTAL CANCER SCREENING due on 11/10/2024 LIPID SCREEN due on 03/08/2026 PROSTATE CANCER SCREENING DISCUSSION due on 04/22/2026 HEPATITIS C SCREENING Completed Data reviewed External labs from 07/07/2022 reviewed: BMP Glucose 134, Hgb A1c 5.9%, LFTs normal Cholesterol: HDL 34, LDL 75 ASSESSMENT/PLAN: 1. SETH (dyspnea on exertion) - ICD9: 786.09, ICD10: R06.09 (primary diagnosis) - Etiologies include deconditioning vs pulmonary disease vs cardiac. BNP was normal, echocardiogram was normal. This is a chronic complaint that is being perceived as worsening. Cardiology stating to patient that his complaint is not cardiac related. Check spirometry, lung volumes. - LUNG VOLUMES - SPIROMETRY - BASELINE AND POST DILATOR 2. Hyperlipidemia, mixed - ICD9: 272.2, ICD10: E78.2 - good control - Continue current medication. - Encouraged following a low fat, low cholesterol diet. - Discussed the benefits of regular aerobic exercise and weight loss. - ROSUVASTATIN 10 MG TABLET 3. Coronary artery disease without angina pectoris, unspecified vessel or lesion type, unspecified whether [place] or transplanted heart - ICD9: 414.00, ICD10: I25.10 - Continue following with cardiology 4. QUEENIE (obstructive sleep apnea) - ICD9: 327.23, ICD10: G47.33 - Stable, continue use of CPAP. 5. Primary hypertension - ICD9: 401.9, ICD10: I10 - good control - Continue current medication(s) - Recommended regular aerobic exercise. - Recommend home blood pressure monitoring, to bring results in on next visit - Goal of BP <130/80 6. Pre-diabetes - ICD9: 790.29, ICD10: R73.03 - Hgb A1c 5.9%. - METFORMIN ER 500 MG TABLET,EXTENDED RELEASE 24 HR 7. Encounter for immunization - ICD9: V03.89, ICD10: Z23 - PNEUMOCOCCAL VACCINE (PREVNAR 20) Pranav Garcia APRN.CNP RTO in 12 months, sooner if needed. This note was partly generated using [employer] voice recognition dictation and may contain some misspelled or inaccurate words missed on review. documented in this encounter [facility] 07-18-2022 Miscellaneous Notes Pt notified. Appt made with Pranav Garcia. Nichole Stafford Ma OK for 30 days; needs appt Shayan Hoskins MD Last office visit: 04/23/21 F/u scheduled: none NEEDS APPT, NOT SEEN SINCE 2020. Nichole Stafford Ma Patient has been identified by name and date of : Yes Requested Prescriptions Pending Prescriptions Disp Refills metFORMIN ER (GLUCOPHAGE XR) 500 mg 24 hr tablet 30 tablet 11 Sig: Take 1 tablet by mouth daily with breakfast. RX INSTRUCTIONS: Patient aware RX will be sent to pharmacy. No need to notify patient. Lawanda Lynn Pss documented in this encounter [facility] 05-28-2022 Miscellaneous Notes The following approved medication requests have been transmitted electronically. Requested Prescriptions Pending Prescriptions Disp Refills metFORMIN ER (GLUCOPHAGE XR) 500 mg 24 hr tablet 30 tablet 1 Sig: Take 1 tablet by mouth daily with breakfast. Veronique Vasquez APRN.CNP Patient last visit with PCP 04/22/2021 Follow up appointment scheduled none Elizabeth Umanzor Ma Patient has been identified by name and date of : Yes Requested Prescriptions Pending Prescriptions Disp Refills metFORMIN ER (GLUCOPHAGE XR) 500 mg 24 hr tablet 30 tablet 6 Sig: Take 1 tablet by mouth daily with breakfast. RX INSTRUCTIONS: Patient aware RX will be sent to pharmacy. No need to notify patient. Monika Guerra documented in this encounter [facility] 09-16-2021 Miscellaneous Notes The following approved medication requests have been transmitted electronically. Pending Prescriptions Disp Refills ROSUVASTATIN 10 MG TABLET 90 tablet 1 Sig: Take 1 tablet by mouth daily at bedtime. RASHMI: Yes Pranav Garcia APRN.METER SHOP SUPERVISOR Patient phones requesting refills as follows: Pending Prescriptions Disp Refills ROSUVASTATIN 10 MG TABLET 90 tablet 1 Sig: Take 1 tablet by mouth daily at bedtime. RASHMI: Yes OSMAN-04/22/21 Labs-04/22/21 NOV-none med filled 03/07/21 ends 06/05/21 Please review and advise. Katelin Zarate LPN documented in this encounter [facility] 09-01-2020 Evaluation note Diagnosis Onset Date Presence of biventricular ca rdiac pacemaker Sep, 2020 acute Dilated cardiomyopathy chron ic Left bundle branch block chr onic NYHA class 2 and ACC/AHA sta ge C chronic systolic congestive heart failure [facility] Work Phone: 1(743) 572-411905-01-2021 Evaluation note* Diagnosis Onset Date Resolution Status Presence of biventricular cardiac pacemaker Sep, 2020 acute Dilated cardiomyopathy chron ic NYHA class 2 and ACC/AHA sta ge C chronic systolic congestive heart failure chronic Diabetes type 2, controlled acute Presence of biventricular cardiac pacemaker Sep, 2020 acute Atherosclerotic heart diseas e of [place] coronary artery without angina pectoris chronic Dilated cardiomyopathy chron ic Essential hypertension chron ic NYHA class 2 and ACC/AHA sta ge C chronic systolic congestive heart failure chronic QUEENIE (obstructive sleep apnea) chronic Pure hypercholesterolemia [facility] Work Phone: 1(647) 195-940305-01-2021 Evaluation note* Diagnosis Onset Date Resolution Status Presence of biventricular cardiac pacemaker Sep, 2020 acute Dilated cardiomyopathy chron ic Left bundle branch block chr onic Presence of biventricular cardiac pacemaker Sep, 2020 acute Atherosclerotic heart diseas e of [place] coronary artery without angina pectoris chronic Dilated cardiomyopathy chron ic Essential hypertension chron ic NYHA class 2 and ACC/AHA sta ge C chronic systolic congestive heart failure chronic QUEENIE (obstructive sleep apnea) chronic Pure hypercholesterolemia [facility] Presence of biventricular cardiac pacemaker Sep, 2020 acute Dilated cardiomyopathy chron ic Left bundle branch block [facility] onic NYHA class 2 and ACC/AHA sta ge C chronic systolic congestive heart failure [facility] Work Phone: Evaluation note* Diagnosis Hyperlipidemia, mixed Mixed hyperlipidemia [facility] [place] [facility] Diagnosis Type 2 diabetes mellitus without complication, without long-term current use of insulin (HCC) [facility] [place] [facility] Diagnosis Type 2 diabetes mellitus without complication, without long-term current use of insulin (HCC) [facility] [place] [facility]* Diagnosis Type 2 diabetes mellitus without complication, without long-term current use of insulin (HCC) [facility] [place] [facility]* Diagnosis SETH (dyspnea on exertion)- Primary Other dyspnea and respiratory abnormality Hyperlipidemia, mixed Mixed hyperlipidemia Coronary artery disease without angina pectoris, unspecified vessel or lesion type, unspecified whether [place] or transplanted heart QUEENIE (obstructive sleep apnea) Obstructive sleep apnea (adult) (pediatric) Primary hypertension Unspecified essential hypertension Pre-diabetes Other abnormal glucose Encounter for immunization Need for other specified prophylactic vaccination against single bacterial disease [facility] [place] [facility] Diagnosis SETH (dyspnea on exertion) Other dyspnea and respiratory abnormality [facility] [place] [facility] Diagnosis SETH (dyspnea on exertion) Other dyspnea and respiratory abnormality [facility] [place] [facility]* Diagnosis Pre-diabetes- Primary Other abnormal glucose Primary hypertension Unspecified essential hypertension Coronary artery disease without angina pectoris, unspecified vessel or lesion type, unspecified whether [place] or transplanted heart Hyperlipidemia, mixed Mixed hyperlipidemia QUEENIE (obstructive sleep apnea) Obstructive sleep apnea (adult) (pediatric) Seasonal allergies Allergic rhinitis, cause unspecified Screening for depression Encounter for screening examination for other mental health and behavioral disorders documented in this encounter [facility] note* Diagnosis Pre-diabetes- Primary Other abnormal glucose Primary hypertension Unspecified essential hypertension Coronary artery disease without angina pectoris, unspecified vessel or lesion type, unspecified whether [place] or transplanted heart Hyperlipidemia, mixed Mixed hyperlipidemia [facility] [place] [facility]* Diagnosis Pre-diabetes Other abnormal glucose [facility] [place] [facility]* Diagnosis Hyperlipidemia, mixed Mixed hyperlipidemia documented in this encounter [facility] noteNo assessment information availableSt. [facility] Work Phone: Evaluation note* Diagnosis Coronary artery disease without angina pectoris, unspecified vessel or lesion type, unspecified whether [place] or transplanted heart- Primary Hyperlipidemia, mixed Mixed hyperlipidemia Primary hypertension Unspecified essential hypertension Pre-diabetes Other abnormal glucose documented in this encounter [facility] for referral (narrative)* Outpatient Procedure (Routine) - Authorized Specialty Diagnoses / Procedures Referred By Contac t Referred To Contact [facility] Diagnoses SETH (dyspnea on exertion) Procedures SPIROMETRY - BASELINE AND POST DILATOR BRNCDILAT RSPSE SPMTRY PRE&POST-BRNCDILAT ADMN Pranav Garcia APRN.CNP [address] [place] [address] Respiratory [place] [address] [place] [address] Referral ID Status Reason Start Date Expiration Date Visits Requested Visits Authorized [id number] Authorized Auto-Generat ed Referral 07/28/2022 05/03/2023 1 1 * Outpatient Procedure (Routine) - Authorized Specialty Diagnoses / Procedures Referred By Contac t Referred To Contact [facility] Diagnoses SETH (dyspnea on exertion) Procedures LUNG VOLUMES Pranav Garcia APRN.CNP [address] [place] [address] Respiratory [place] [address] [place] [address] Referral ID Status Reason Start Date Expiration Date Visits Requested Visits Authorized [id number] Authorized Auto-Generat ed Referral 07/28/2022 05/03/2023 1 1 [facility] for referral (narrative)No reason for referral information availableSt. [facility] Work Phone: Chief Complaint Chief Complaint Description Start Date right foot pain Preliminary chief co mplaint data, not yet signed by the author as of Instructions Instruction Description Start Date CompletedPatient advised to follow-up with Primary Care Physician for BMI management. 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 Advance Directive(s) 11/11/2019 9:39 AM Advance Directive(s) 11/07/2019 3:54 PM Advance Directive(s) 09/15/2016 9:57 AM Advance Directive Response Recorded Date/ Time Advance Directives Yes February 15, 2020 7:07am Living Will No August 11, 2020 11:53pm Power of [employer] Coxswain Yes August 11 11:53pm Advance Directive Response Recorded Date/ Time Advance Directives Yes February 15, 2020 6:07am Living Will No August 11, 2020 10:53pm Power of [employer] Cox[employer] Yes August 11 10:53pm Advance Directive Response Recorded Date/ Time Advance Directives Yes February 15, 2020 7:07am Assessments There may be information available, but it has not been provided by the sender. Review of System There may be information available, but it has not been provided by the sender. Family History No Family History Records Found Relationship Condition Age at Onset Recorded Date/T patricia mother Cardiac disease Unknown Presence of cardiac pacemaker Unknown Cardiac defibrillator in place Unknown History of Present Illness There may be information available, but it has not been provided by the sender. Summary Purpose Chief Complaint and Reason for Visit Chief Complaint 3 mos remote CAMP COORDINATOR-D f /u CARDIOMYOPATHY Reason for Visit Presence of biventri cular cardiac pacemaker Dilated cardiomyopathy Left bundle branch block NYHA class 2 and ACC/AHA stage C chronic systolic congestive heart failure Chief Complaint 3 mos remote ICD f/u INT LABS 6 M FU E ORDERS Reason for Visit Presence of biventri cular cardiac pacemaker Dilated cardiomyopathy NYHA class 2 and ACC/AHA stage C chronic systolic congestive heart failure Diabetes type 2, controlled Presence of biventricular cardiac pacemaker Atherosclerotic heart disease of [place] coronary artery without angina pectoris Dilated cardiomyopathy Essential hypertension NYHA class 2 and ACC/AHA stage C chronic systolic congestive heart failure QUEENIE (obstructive sleep apnea) Pure hypercholesterolemia Chief Complaint 3 mos remote ICD f/u INT LABS 6 M FU E ORDERS ASHD, DYSPNEA/SOB Reason for Visit Presence of biventri cular cardiac pacemaker Dilated cardiomyopathy NYHA class 2 and ACC/AHA stage C chronic systolic congestive heart failure Diabetes type 2, controlled Presence of biventricular cardiac pacemaker Atherosclerotic heart disease of [place] coronary artery without angina pectoris Dilated cardiomyopathy Essential hypertension NYHA class 2 and ACC/AHA stage C chronic systolic congestive heart failure QUEENIE (obstructive sleep apnea) Pure hypercholesterolemia Chief Complaint 3 mos remote CAMP COORDINATOR-P f /u E ORDERS/DR STATON 9 M FU CAMP COORDINATOR-P f/u @ 9AM annual in-clinic f/u Sees mmm @ 8:30 Reason for Visit Presence of biventri cular cardiac pacemaker Dilated cardiomyopathy Left bundle branch block Presence of biventricular cardiac pacemaker Atherosclerotic heart disease of [place] coronary artery without angina pectoris Dilated cardiomyopathy Essential hypertension NYHA class 2 and ACC/AHA stage C chronic systolic congestive heart failure QUEENIE (obstructive sleep apnea) Pure hypercholesterolemia Presence of biventricular cardiac pacemaker Dilated cardiomyopathy Left bundle branch block NYHA class 2 and ACC/AHA stage C chronic systolic congestive heart failure Chief Complaint Admit Date Pacer Check Remote September 16, 2024 2:20a m Chief Complaint Admit Date Pacer Check Remote September 16, 2024 2:20a m 6 M FU October 31, 2024 7:49 am Additional Source Comments Reason for Visit (unrecogniz ed section and content) Reason For Visit Description New - 1st visit with practice Preliminary reason f or visit data, not yet signed by the author as of right foot pain Reason Comments Refill Request Reason Onset Date Comments Refill Request 05/28/2022 Reason Onset Date Comments Refill Request 07/18/2022 Reason Comments Physical Reason Comments Spirometry Specialty Diagnoses / Procedures Referred By Usha ohara [facility] Diagnoses SETH (dyspnea on exertion) Procedures SPIROMETRY - BASELINE AND POST DILATOR BRNCDILAT RSPSE SPMTRY PRE&POST-BRNCDILAT ADMN Pranav Garcia APRN.[employer] SUPERVISOR [address] [place] [address] [facility] [place] [facility] [place] [address] Referral ID Status Reason Start Date Expiration Date V isits Requested Visits Authorized [id number] Closed Auto-Generate d Referral 07/28/2022 05/03/2023 1 1 Specialty Diagnoses / Procedures Referred By Usha ohara Referred To [facility] Diagnoses SETH (dyspnea on exertion) Procedures LUNG VOLUMES Pranav Garcia, [place].[employer] SH[employer] SUPERVISOR [address] [place] [address] Respiratory [place] [address] Referral ID Status Reason Start Date Expiration Date V isits Requested Visits Authorized [id number] Closed Auto-Generate d Referral 07/28/2022 05/03/2023 1 1 Reason Comments Results Reason Comments 6 Month Exam Reason Comments Results Labs Reason Onset Date Comments Refill Request 05/16/2024 Reason Onset Date Comments requesting medication that is 08/12/2024 Reason Comments Orders (unrecognized sect ion and content) No Status Records FoundNo Status Records FoundNo Status Records Found INFORMATION SOURCE (unrecogn ized section and content) DATE CREATED AUTHOR 05/31/[address] [facility] DATE CREATED AUTHOR AUTHOR'S ORGANIZ ATION 11/02/2024 [facility] DATE CREATED AUTHOR AUTHOR'S ORGANIZ ATION 11/18/2024 [facility] Source Comments (unrecognize d section and content) In the event this informatio n is protected by the Federal Confidentiality of Alcohol and Drug Abuse Patient Records regulations: The Federal rules restrict any use of the information to criminally investigate or prosecute any alcohol or drug abuse patient.[facility] the event this information is protected by the Federal Confidentiality of Alcohol and Drug Abuse Patient Records regulations: The Federal rules restrict any use of the information to criminally investigate or prosecute any alcohol or drug abuse patient.[facility] the event this information is protected by the Federal Confidentiality of Alcohol and Drug Abuse Patient Records regulations: The Federal rules restrict any use of the information to criminally investigate or prosecute any alcohol or drug abuse patient.[facility] the event this information is protected by the Federal Confidentiality of Alcohol and Drug Abuse Patient Records regulations: The Federal rules restrict any use of the information to criminally investigate or prosecute any alcohol or drug abuse patient.[facility] the event this information is protected by the Federal Confidentiality of Alcohol and Drug Abuse Patient Records regulations: The Federal rules restrict any use of the information to criminally investigate or prosecute any alcohol or drug abuse patient.[facility] the event this information is protected by the Federal Confidentiality of Alcohol and Drug Abuse Patient Records regulations: The Federal rules restrict any use of the information to criminally investigate or prosecute any alcohol or drug abuse patient.[facility] the event this information is protected by the Federal Confidentiality of Alcohol and Drug Abuse Patient Records regulations: The Federal rules restrict any use of the information to criminally investigate or prosecute any alcohol or drug abuse patient.[facility] the event this information is protected by the Federal Confidentiality of Alcohol and Drug Abuse Patient Records regulations: The Federal rules restrict any use of the information to criminally investigate or prosecute any alcohol or drug abuse patient.[facility] the event this information is protected by the Federal Confidentiality of Alcohol and Drug Abuse Patient Records regulations: The Federal rules restrict any use of the information to criminally investigate or prosecute any alcohol or drug abuse patient.[facility] the event this information is protected by the Federal Confidentiality of Alcohol and Drug Abuse Patient Records regulations: The Federal rules restrict any use of the information to criminally investigate or prosecute any alcohol or drug abuse patient.[facility] the event this information is protected by the Federal Confidentiality of Alcohol and Drug Abuse Patient Records regulations: The Federal rules restrict any use of the information to criminally investigate or prosecute any alcohol or drug abuse patient.[facility] the event this information is protected by the Federal Confidentiality of Alcohol and Drug Abuse Patient Records regulations: The Federal rules restrict any use of the information to criminally investigate or prosecute any alcohol or drug abuse patient.[facility] the event this information is protected by the Federal Confidentiality of Alcohol and Drug Abuse Patient Records regulations: The Federal rules restrict any use of the information to criminally investigate or prosecute any alcohol or drug abuse patient.[facility] Care Teams (unrecognized sec tion and content) Gear Shaper Relationship Specialty Start Date End Date Shayan Hoskins MD [address] [place] [address] PCP - General Family Practice 08/28/15 Hieu Courtney (Hist) NO FORWARDING ADDRESS Family Practice 05/28/15 Gear Shaper Relationship Specialty Start Date End Date Shayan Hoskins MD [address] [place] [address] PCP - General Family Medicine 08/28/15 Hieu Courtney (Hist) NO FORWARDING ADDRESS Family Medicine 05/28/15 Gear Shaper Relationship Specialty Start Date End Date Shayan Hoskins MD [address] [place] [address] PCP - General Family Medicine 08/28/15 Hieu Courtney (Hist) NO FORWARDING ADDRESS Family Medicine 05/28/15 Team Status: Active Member Role Status Dates Dr. Shayan Hoskins MD Family Provider Active Dr. Shayan Hoskins MD Primary Care Provider Active Team Status: Inactive Member Role Status Dates Dr. Shayan Hoskins MD Primary Care Provider, Referr ing Provider Active Tabatha NAVARRO, PA Attending Provider Active Team Status: Inactive Member Role Status Dates Dr. Shayan Hoskins MD Primary Care Provider, Referr ing Provider Active Edda Caban Attending Provider Active Team Status: Inactive Member Role Status Dates Dr. Shayan Hoskins MD Primary Care Provider Active Dr. Simba Staton MD Attending Provider, Referring Provider Active Team Status: Active Member Role Status Dates Dr. Shayan Hoskins MD Primary Care Provider Active Tabatha Almanza PA, PA Attending Provider, Referr ing Provider Active Team Status: Inactive Member Role Status Dates Dr. Shayan Hoskins MD Primary Care Provider Active Tabatha Almanza PA, PA Attending Provider, Referr ing Provider Active Gear Shaper Relationship Specialty Start Date End Date Shayan Hoskins MD [address] [place], [place] [id number] PCP - General Family Medicine 08/28/15 Hieu Courtney (Hist) NO FORWARDING ADDRESS Family Medicine 05/28/15 Team Status: Inactive Member Role Status Dates Dr. Shayan Hoskins MD Primary Care Provider, Referr ing Provider Active Edda Caban Active Dr. Simba Staton MD Attending Provider Active Team Status: Active Member Role Status Dates Dr. Shayan Hoskins MD Primary Care Provider Active Dr. Simba Staton MD Attending Provider Active Gear Shaper Relationship Specialty Start Date End Date Shayan Hoskins MD [address] [place] [place] [address] PCP - General Family Medicine 08/28/15 Hieu Courtney (Hist) NO FORWARDING ADDRESS Family Medicine 05/28/15 Gear Shaper Relationship Specialty Start Date End Date Shayan Hoskins MD [address] [facility] [place] [address] PCP - General Family Medicine 08/28/15 Hieu Courtney (Hist) NO FORWARDING ADDRESS Family Medicine 05/28/15 Gear Shaper Relationship Specialty Start Date End Date Shayan Hoskins MD [address] [facility] [place] [address] PCP - General Family Medicine 08/28/15 Hieu Courtney (Hist) NO FORWARDING ADDRESS Family Medicine 05/28/15 Gear Shaper Relationship Specialty Start Date End Date Shayan Hoskins MD [address] [facility] [place] [address] PCP - General Family Medicine 08/28/15 Hieu Courtney (Hist) NO FORWARDING ADDRESS Family Medicine 05/28/15 Team Status: Inactive Member Role Status Dates Dr. Shayan Hoskins MD Primary Care Provider, Referr ing Provider Active Edda Caban Active Dr. Aashish Mathews MD Attending Provider Active Team Status: Inactive Member Role Status Dates Dr. Shayan Hoskins MD Primary Care Provider Active Ron Santiago DONOR PROCESSOR, DONOR PROCESSOR-C Attending Provider, Referring Pro vider Active Gear Shaper Relationship Specialty Start Date End Date Shayan Hoskins MD [address] [facility] [place] [address] PCP - General Family Medicine 08/28/15 Hieu Courtney (Hist) NO FORWARDING ADDRESS Family Medicine 05/28/15 Gear Shaper Relationship Specialty Start Date End Date Shayan Hoskins MD [address] [facility] [place] [address] PCP - General Family Medicine 08/28/15 Hieu Courtney (Hist) NO FORWARDING ADDRESS Family Medicine 05/28/15 Veronique Vasquez, GENERAL TELLER.METER SH[employer] SUPERVISOR [address] [place] [address] Insurance Claims Clerk Family Medicine 04/10/24 Pranav Garcia GENERAL TELLER.[employer]ER SH[employer] SUPERVISOR [address] [place] [address] Insurance Claims Clerk Family Medicine 04/19/24 Gear Shaper Relationship Specialty Start Date End Date Shayan Hoskins MD [address] [place] [address] PCP - General Family Medicine 08/28/15 Hieu Courtney (Hist) NO FORWARDING ADDRESS Family Medicine 05/28/15 Veronique Vasquez GENERAL TELLER.METER SHOP SUPERVISOR NO FORWARDING ADDRESS Insurance Claims Clerk Family Medicine 04/10/24 Pranav Garcia, GENERAL TELLER.METER SHOP SUPERVISOR [address] [place] [address] Insurance Claims Clerk Family Medicine 04/19/24 Team Status: Inactive Member Role Status Dates Dr. Shayan Hoskins MD Primary Care Provider Active Start: September 16, 2024 End: September 16, 2024 Dr. Aashish Mathews MD Attending Provider Active S tart: September 16, 2024 End: September 16, 2024 Team Status: Active Member Role/Relationship Status Dates Dr. Shayan Hoskins MD Family Provider Active Dr. Shayan Hoskins MD Primary Care Provider Active Team Status: Inactive Member Role/Relationship Status Dates Dr. Shayan Hoskins MD Primary Care Provider Active Start: September 16, 2024 End: September 16, 2024 Dr. Aashish Mathews MD Attending Provider Active S tart: September 16, 2024 End: September 16, 2024 Team Status: Inactive Member Role/Relationship Status Dates Dr. Shayan Hoskins MD Primary Care Provider Active Start: October 31, 2024 End: October 31, 2024 Dr. 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 This clinical summary was aggregated from multiple sources. Caution should be exercised in using it in the provision of clinical care. This summary normalizes information from multiple sources, and as a consequence, information in this document may materially change the coding, format and clinical context of patient data. In addition, data may be omitted in some cases. CLINICAL DECISIONS SHOULD BE BASED ON THE PRIMARY CLINICAL RECORDS. [facility]. provides no warranty or guarantee of the accuracy or completeness of information in this document.
--- NOTE | 2024-11-29 10:26 | STRESSREP_ITS ---
Stress Test Report Date: 11/29/2024 Procedure: Pharmacologic stress nuclear imaging study Indications: Dyspnea on exertion Consent: Per the patient Procedure: The patient underwent pharmacologic (Regadenoson 0.4mg ) evaluation with a peak heart rate of 91 beats per minute (60%predicted maximal heart rate) and a peak blood pressure of 118/74 mmHg. The baseline ECG demonstrated sinus rhythm with electronic ventricular pacing. The peak pharmacologic ECG was nondiagnostic. There were no cardiac dysrhythmias pretest, during pharmacologic infusion, or recovery. There was no complaint of chest discomfort during pharmacologic infusion or recovery. The patient was injected with 14.6 millicuries of technetium 99m Cardiolite and subsequently rest SPECT Cardiolite nuclear imaging was obtained in the horizontal long, vertical long, and short axis views. The patient underwent pharmacologic (Regadenoson) evaluation. The patient was injected with 44.9 millicuries of technetium 99m Cardiolite and subsequently stress SPECT Cardiolite nuclear imaging was obtained in the horizontal long, vertical long, and short axis views. A gated Cardiolite study at peak stress was obtained. The examination was stopped secondary to completion of protocol. Rest and stress SPECT Cardiolite nuclear imaging status post realignment, normalization, and attenuation correction demonstrate mildly reduced perfusion of the anterior apex which remains unchanged post pharmacological stress. With normal wall motion, consider attenuation artifact. No reversible ischemia. There is end systolic thickening and brightening. The gated Cardiolite study demonstrates myocardial thickening and inward wall motion. The reported LVEF is 60%. Impression: 1. Pharmacologic (Regadenoson) evaluation 2. Peak pharmacologic ECG nondiagnostic with electronic ventricular pacing. 3. There were no cardiac dysrhythmias pretest, during pharmacologic infusion, or recovery. 5. Rest and stress SPECT Cardiolite nuclear imaging demonstrate relative uniform tracer uptake and myocardial perfusion appearing within normal limits. 6. The gated Cardiolite study reports an LVEF of 60%. This note was generated with [employer] software. It may contain incorrect words, spelling, and punctuation that were not noted in checking the note before signing.
== END | disposition home or self-care (01) ==
LOC: CVS 06:23
PROVIDERS: PCP Family Medicine; Referring Provider Student in an Organized Health Care Education/Training Program; Visit Provider Student in an Organized Health Care Education/Training Program
DX: R06.09 Other forms of dyspnea (principal); I25.10 Atherosclerotic heart disease of native coronary artery without angina pectoris
CPT/HCPCS: 78452; 93017; A9500; A4216; J2785